=== PATIENT | female | born 1990 | race Caucasian/White ===

== ENCOUNTER 2023-04-06 08:09 | Outpatient (OUT) | payer MEDICAID, SELFPAY ==
--- NOTE | 2023-04-06 08:13 | US_ITS ---
The [address] [address] Patient Name: ERKIA GRIER MRN: [id number] date: 1990 Sex: F Assigned Patient Location: US Current Patient Location: US Accession/Order Number: [id number] Exam Date: 04/06/2023 08:15 Report Date: 04/06/2023 15:20 At the request of: ANN MORENO Procedure: US OB transvaginal EXAMINATION: US OB transvaginal HISTORY: MISSED PERIOD COMPARISON: No relevant comparison available. FINDINGS: GESTATIONAL SAC: Present and normal appearing. YOLK SAC: Present and normal appearing. POLE: Present and normal appearing. CARDIAC: Present. UTERUS: Small subchorionic hematoma. OVARIES: Right: Normal. Left: Normal. CERVIX: 5.7 cm in length and closed. CUL-DE-SAC: Normal. OTHER: None. AGE BY LMP: 10 weeks 3 days OMARI BY LMP: 10/30/2023 AGE BY US CRL: 10 weeks 2 days OMARI BY US CRL: 10/31/2023 IMPRESSION: 1. Single live intrauterine . Electronically authenticated by: MANDO DIEZ Date: 04/06/2023 15:20
== END 2023-04-06 08:10 ==
LOC: US 08:09
PROVIDERS: Visit Provider Obstetrics & Gynecology
DX: Z34.91 Encounter for supervision of normal pregnancy, unspecified, first trimester (principal)
CPT/HCPCS: 76817

== ENCOUNTER 2023-04-11 19:51 | Emergency (ER) | payer MEDICAID, SELFPAY ==
[2023-04-11 19:55] VITALS: BP 101/62; PULSE 90; RESP 16; TEMP 36.7; O2SAT 99; BMI 21.1
--- NOTE | 2023-04-11 20:12 | ED.GENADUL1 ---
HPI - General Adult General Chief complaint: Dental/Oral Stated complaint: SORE THROAT Time Seen by Provider: 04/11/23 20:12 Mode of arrival: walk-in History of Present Illness HPI narrative: presents complaining of sore throat for 3 days. States abrupt onset. No fever. 11 weeks . No fever. Describes mild congestion. No nausea or vomiting. Onset (ago): day(s) Related Data Allergies Allergy/AdvReac Type Severity Reaction Status Date / Time No Known Drug Allergies Allergy Verified 04/11/23 20:05 Review of Systems ROS Status of ROS 10 or more systems reviewed and unremarkable except as noted in history and below [facility] Social History Smoking status: Never smoker Exam Constitutional Vital Signs - 24 hr 04/11/23 19:55 Temperature 98.1 F Pulse Rate [Monitor] 90 Respiratory Rate 16 Blood Pressure [Left Arm] 101/62 Pulse Oximetry 99 Common normals: no apparent distress, average body habitus, oriented x3, no limitations and healthy appearing HENMA Common normals: normocephalic, head/scalp atraumatic, hearing grossly normal bilaterally and external ears normal Other: oral pharynx appears normal Eye Common normals: PERRL, EOMs intact bilaterally and conjunctivae normal Respiratory Common normals: normal respiratory effort, no retractions, no use of accessory muscles and clear to auscultation bilaterally Cardio Common normals: no JVD, regular rate, regular rhythm, S1 normal heart sound and S2 normal heart sound GI Common normals: Normal to inspection, nondistended, normoactive bowel sounds present, soft to palpation and non-tender Extremity Common normals: normal to inspection, full ROM, normal capillary refill and no joint enlargement Neuro Common normals: oriented x3, CN's II-XII intact bilaterally, moves all extremities, no focal motor deficits and no sensory deficits noted Psych Appearance: grossly normal Course Vital Signs Vital signs: Vital Signs Temperature 98.1 F 04/11/23 19:55 Pulse Rate 90 04/11/23 19:55 Respiratory Rate 16 04/11/23 19:55 Blood Pressure 101/62 04/11/23 19:55 Pulse Oximetry 99 04/11/23 19:55 Temperature 98.1 F 04/11/23 19:55 Pulse Rate 90 04/11/23 19:55 Respiratory Rate 16 04/11/23 19:55 Blood Pressure 101/62 04/11/23 19:55 Pulse Oximetry 99 04/11/23 19:55 Medical Decision Making Medical Records Medical records narrative: presents with 3 day history of sore throat. no fever. No lymph nodes. Oral pharynx clear. Strep screen neg. Patient advised of the working diagnosis of viral pharyngitis. Discharged home to follow up with her doctor for recheck Lab Data Labs: Lab Results 04/11/23 Range/Units 20:03 Streptococcus Screen Negative Discharge Plan Discharge Chief Complaint: Dental/Oral Clinical Impression: Acute viral pharyngitis Patient Disposition: Home, Self-Care Instructions: Pharyngitis (ED) Stand Alone Forms: Portal Instructions Referrals: Physician,Non-Staff, MD [Primary Care Provider] - 1 week Follow Up Appointments: follow up with your family doctor next week
[2023-04-11 20:18] LABS: Internal Control Within Normal Limits; Strep A Antigen Screen Negative
== END 2023-04-11 20:49 | disposition home or self-care (01) ==
PROVIDERS: Emergency Provider Internal Medicine
DX: O99.511 Diseases of the respiratory system complicating pregnancy, first trimester (principal); J02.9 Acute pharyngitis, unspecified; Z3A.11 11 weeks gestation of pregnancy
CPT/HCPCS: 87070; 87880; 99283

== ENCOUNTER 2023-05-04 21:01 | Outpatient (REF) | payer MEDICAID, SELFPAY ==
[2023-05-07 22:06] LABS: Age Gdln ACOG Testing Note (.); HPV Aptima Negative (Negative); IGP, Aptima HPV, rfx 16/18,45 Note (.)
== END 2023-05-04 21:02 | disposition home or self-care (01) ==
LOC: LAB 21:01
PROVIDERS: Visit Provider Obstetrics & Gynecology
DX: Z12.4 Encounter for screening for malignant neoplasm of cervix (principal); Z11.51 Encounter for screening for human papillomavirus (HPV)
CPT/HCPCS: 87624; G0145

== ENCOUNTER 2023-05-13 08:56 | Outpatient (OUT) | payer MEDICAID, SELFPAY ==
[2023-05-13 09:22] LABS: Basophils Percent Auto 0.3 % (0.2-2.0); Eosinophils Absolute Auto 0.1 10^3/uL (0.0-0.7); Eosinophils Percent Auto 1.2 % (0.9-7.0); Hematocrit 40.7 % (36.0-48.0); Hemoglobin 13.8 g/dL (12.0-16.0); Immature Granulocytes Abs Auto 0.03 10^3/uL (0.00-0.03); Immature Granulocytes Pct Auto 0.4 % (0.0-0.5); Lymphocytes Absolute Auto 1.4 10^3/uL (1.2-3.8); Lymphocytes Percent Auto 20.4 % (20.5-60.0); Mean Corpuscular HGB Conc 33.9 g/dL (29.9-35.2); Mean Corpuscular Hemoglobin 30.1 pg (26.7-34.0); Mean Corpuscular Volume 88.7 fL (81.0-99.0); Mean Platelet Volume 10.2 fL (9.5-13.5); Monocytes Absolute Auto 0.5 10^3/uL (0.3-0.8); Monocytes Percent Auto 7.2 % (1.7-12.0); Neutrophils Absolute Auto 4.8 10^3/uL (1.4-6.5); Neutrophils Percent Auto 70.5 % (43.0-75.0); Platelet Count 253 10^3/uL (150-450); Red Blood Count 4.59 10^6/uL (4.20-5.40); Red Cell Distribution Width 13.5 % (11.0-15.0); White Blood Count 6.8 10^3/uL (4.0-11.0)
[2023-05-13 10:21] LABS: Thyroid Stimulating Hormone 4.039 uIU/mL (0.358-3.740)
[2023-05-13 11:35] LABS: Estimated Average Glucose 91 mg/dL; Glycohemoglobin A1C 4.8 % (4.5-6.2)
[2023-05-14 06:09] LABS: HBsAg Screen Negative (Negative); HCV Ab Non Reactive (Non Reactive); HIV Ab/p24 Ag Screen Non Reactive (Non Reactive); Rubella Antibodies, IgG <0.90 index (Immune >0.99)
[2023-05-14 11:09] LABS: Rapid Plasma Reagin, Quant Non Reactive (NonRea<1:1)
== END 2023-05-13 08:57 | disposition home or self-care (01) ==
LOC: LAB 08:57
PROVIDERS: Visit Provider Obstetrics & Gynecology
DX: N92.6 Irregular menstruation, unspecified (principal)
CPT/HCPCS: 36415; 83036; 84443; 85025; 86592; 86706; 86762; 86803; 86850; 86900; 86901; 87086; 87389

== ENCOUNTER 2023-06-17 08:09 | Outpatient (OUT) | payer MEDICAID, SELFPAY ==
--- NOTE | 2023-06-17 | US_ITS ---
[address] [address] Patient Name: ERIKA GRIER MRN: [id number] date: 1990 Sex: F Assigned Patient Location: US Current Patient Location: Accession/Order Number: [id number] Exam Date: 06/17/2023 08:11 Report Date: 06/17/2023 15:17 At the request of: ARTHUR GALLARDO Procedure: US OB anatomy EXAMINATION: US OB anatomy HISTORY: ANATOMY COMPARISON: No relevant comparison available. TECHNIQUE: Transabdominal sonographic examination was performed for obstetrical and evaluation. FINDINGS: Number: 1 Heart Rate: 158.0 bpm H.B. /min Amniotic Fluid Volume: Subjectively normal Placental Location: POSTERIOR with lower margin adjacent the internal os. Cervix Length: 5.7 cm, closed. ANATOMY: Normal Structures -cerebellum, choroid plexus, cisterna magna, lateral cerebral ventricles, orbits, midline falx, hard palate, four-chamber heart, RVOT, LVOT, stomach, kidneys, bladder, umbilical cord insertion into abdomen, three-vessel cord, cervical spine, thoracic spine, lumbar spine, sacral spine, right upper extremity, left upper extremity, right lower extremity, left lower extremity. SUBOPTIMALLY SEEN: None ABNORMALITIES: None BIOMETRY: BPD: 4.4 cm 19 weeks 1 days ; 4% HC: 17.2 cm 19 weeks 5 days; 9% AC: 15.4 cm 20 weeks 4 days; 40% FL: 3.3 cm 20 weeks 3 days; 33% EFW:352.2 grams; 29% FL/AC: 21.7 FL/BPD: 76.8 HC/AC: 1.1 GESTATIONAL AGE: Age by EDC: 20 weeks 5 days OMARI by EDC: 10/30/2023 Age by current US: 20 weeks 0 days OMARI by current US: 11/04/2023 US/US OB anatomy IMPRESSION: 1. Single live intrauterine with growth detailed above. 2. Biparietal diameter is at 4th percentile. Electronically authenticated by: MANDO DIEZ Date: 06/17/2023 15:17
--- NOTE | 2023-06-17 | US_ITS ---
[address] [address] Patient Name: ERIKA GRIER MRN: [id number] date: 1990 Sex: F Assigned Patient Location: US Current Patient Location: Accession/Order Number: [id number] Exam Date: 06/17/2023 08:11 Report Date: 06/17/2023 15:17 At the request of: ARTHUR GALLARDO Procedure: US OB transvaginal EXAMINATION: US OB anatomy HISTORY: ANATOMY COMPARISON: No relevant comparison available. TECHNIQUE: Transabdominal sonographic examination was performed for obstetrical and evaluation. FINDINGS: Number: 1 Heart Rate: 158.0 bpm H.B. /min Amniotic Fluid Volume: Subjectively normal Placental Location: POSTERIOR with lower margin adjacent the internal os. Cervix Length: 5.7 cm, closed. ANATOMY: Normal Structures -cerebellum, choroid plexus, cisterna magna, lateral cerebral ventricles, orbits, midline falx, hard palate, four-chamber heart, RVOT, LVOT, stomach, kidneys, bladder, umbilical cord insertion into abdomen, three-vessel cord, cervical spine, thoracic spine, lumbar spine, sacral spine, right upper extremity, left upper extremity, right lower extremity, left lower extremity. SUBOPTIMALLY SEEN: None ABNORMALITIES: None BIOMETRY: BPD: 4.4 cm 19 weeks 1 days ; 4% HC: 17.2 cm 19 weeks 5 days; 9% AC: 15.4 cm 20 weeks 4 days; 40% FL: 3.3 cm 20 weeks 3 days; 33% EFW:352.2 grams; 29% FL/AC: 21.7 FL/BPD: 76.8 HC/AC: 1.1 GESTATIONAL AGE: Age by EDC: 20 weeks 5 days OMARI by EDC: 10/30/2023 Age by current US: 20 weeks 0 days OMARI by current US: 11/04/2023 US/US OB transvaginal IMPRESSION: 1. Single live intrauterine with growth detailed above. 2. Biparietal diameter is at 4th percentile. Electronically authenticated by: MANDO DIEZ Date: 06/17/2023 15:17
== END 2023-06-17 08:10 | disposition home or self-care (01) ==
LOC: US 08:09
PROVIDERS: Visit Provider Physician Assistant
DX: Z34.92 Encounter for supervision of normal pregnancy, unspecified, second trimester (principal)
CPT/HCPCS: 76805; 76817

== ENCOUNTER 2023-07-17 07:55 | Outpatient (OUT) | payer MEDICAID, SELFPAY ==
--- NOTE | 2023-07-17 08:07 | US_ITS ---
[place] [id number] Patient Name: ERIKA GRIER MRN: [id number] date: 1990 Sex: F Assigned Patient Location: LAB Current Patient Location: Accession/Order Number: [id number] Exam Date: 07/17/2023 08:09 Report Date: 07/18/2023 02:06 At the request of: ANN MORENO Procedure: US OB placenta EXAMINATION: US OB transvaginal, US OB placenta HISTORY: Low lying placenta, placenta previa COMPARISON: No relevant comparison available. FINDINGS: PLACENTA: Posterior with lower margin 3.4 cm from os. Suspect small machado at inferior aspect of placenta. CERVIX LENGTH: 4.1 cm, closed. HEART RATE: 146 OTHER: None. GA: 25 weeks 0 days OMARI: 10/30/2023 US/US OB placenta IMPRESSION: 1. Single live intrauterine . 2. Posterior placenta which is no longer low-lying. Electronically authenticated by: MANDO DIEZ Date: 07/18/2023 02:06
--- NOTE | 2023-07-17 08:07 | US_ITS ---
The [place] [id number] Patient Name: ERIKA GRIER MRN: [id number] date: 1990 Sex: F Assigned Patient Location: LAB Current Patient Location: Accession/Order Number: [id number] Exam Date: 07/17/2023 08:09 Report Date: 07/18/2023 02:06 At the request of: ANN MORENO Procedure: US OB transvaginal EXAMINATION: US OB transvaginal, US OB placenta HISTORY: Low lying placenta, placenta previa COMPARISON: No relevant comparison available. FINDINGS: PLACENTA: Posterior with lower margin 3.4 cm from os. Suspect small machado at inferior aspect of placenta. CERVIX LENGTH: 4.1 cm, closed. HEART RATE: 146 OTHER: None. GA: 25 weeks 0 days OMARI: 10/30/2023 US/US OB transvaginal IMPRESSION: 1. Single live intrauterine . 2. Posterior placenta which is no longer low-lying. Electronically authenticated by: MANDO DIEZ Date: 07/18/2023 02:06
[2023-07-17 09:28] LABS: Glucose 1 Hour 65 mg/dL
[2023-07-17 09:43] LABS: Basophils Percent Auto 0.4 % (0.2-2.0); Eosinophils Absolute Auto 0.1 10^3/uL (0.0-0.7); Eosinophils Percent Auto 0.7 % (0.9-7.0); Hemoglobin 12.8 g/dL (12.0-16.0); Immature Granulocytes Abs Auto 0.05 10^3/uL (0.00-0.03); Immature Granulocytes Pct Auto 0.6 % (0.0-0.5); Lymphocytes Absolute Auto 1.6 10^3/uL (1.2-3.8); Lymphocytes Percent Auto 19.1 % (20.5-60.0); Mean Corpuscular HGB Conc 33.7 g/dL (29.9-35.2); Mean Corpuscular Hemoglobin 31.1 pg (26.7-34.0); Mean Corpuscular Volume 92.5 fL (81.0-99.0); Mean Platelet Volume 10.1 fL (9.5-13.5); Monocytes Absolute Auto 0.7 10^3/uL (0.3-0.8); Monocytes Percent Auto 8.7 % (1.7-12.0); Neutrophils Absolute Auto 5.9 10^3/uL (1.4-6.5); Neutrophils Percent Auto 70.5 % (43.0-75.0); Platelet Count 244 10^3/uL (150-450); Red Blood Count 4.11 10^6/uL (4.20-5.40); Red Cell Distribution Width 13.4 % (11.0-15.0); White Blood Count 8.4 10^3/uL (4.0-11.0)
== END 2023-07-17 07:56 | disposition home or self-care (01) ==
LOC: LAB 07:55
PROVIDERS: Visit Provider Obstetrics & Gynecology
DX: O44.42 Low lying placenta NOS or without hemorrhage, second trimester (principal); Z3A.25 25 weeks gestation of pregnancy
CPT/HCPCS: 36415; 76815; 76817; 82950; 85025

== ENCOUNTER 2023-08-27 07:43 | Outpatient (RCR) | payer MEDICAID, SELFPAY ==
[2023-08-27 08:05] VITALS: BP 96/63; PULSE 81; RESP 16; TEMP 36.2; O2SAT 99
[2023-08-27] MEDS: RHO(D) IMMUNE GLOBULIN 1,500 UNIT SYRINGE 1500 UNIT IM (08:15)
--- NOTE | 2023-08-27 08:37 | PC.NURSE ---
0805: Pt. to [facility] amb. for ordered injection of Rhogam. Denies questions about med. Relays having 4 other injections of Rhogam in the past without adverse reactions. 0815: Pt. medicated with Rhophylac, 1500 units, IM to left DG. Bleeding to site. Bandaid applied. Pt. tolerated with minimal c/o discomfort. 0817: Pt. without c/o. Requests to leave for another appointment. Instructed pt. to call if any concerns or symptoms of adverse reaction. Pt. relays understanding. Pt. d/c'd amb. to home.
[2023-08-27 09:53] VITALS: BP 128/66; PULSE 100; RESP 18; TEMP 36.4; O2SAT 95
--- NOTE | 2023-08-27 09:56 | PC.NURSE ---
0934: Pt. to [facility] amb. for daily infusion. VSS. #22 gauge IV initiated to left forearm on first attempt without difficulty. Flushes easily with no edema or redness. Pt. tolerated without c/o. IV Solumedrol 1gram iv initiated at this time. Pt. denies needs.
== END 2023-09-23 23:59 | disposition home or self-care (01) ==
LOC: INF 07:43
PROVIDERS: Visit Provider Obstetrics & Gynecology
DX: O26.893 Other specified pregnancy related conditions, third trimester (principal); Z67.91 Unspecified blood type, Rh negative
CPT/HCPCS: 36415; 86850; 86900; 86901; 96372; J2790

== ENCOUNTER 2023-09-20 07:12 | Outpatient (OUT) | payer MEDICAID, SELFPAY ==
--- NOTE | 2023-09-20 11:01 | US_ITS ---
[address] [address] Patient Name: ERIKA GRIER MRN: [id number] date: 1990 Sex: F Assigned Patient Location: [facility] Current Patient Location: Accession/Order Number: [id number] Exam Date: 09/20/2023 11:06 Report Date: 09/20/2023 15:38 At the request of: ANN MORENO Procedure: US OB BPP w non-stress EXAMINATION: US OB BPP w non-stress HISTORY: THIRD TRIMESTER Z34.93 COMPARISON: Ultrasound OB anatomy 06/17/2023 TECHNIQUE: Ultrasound biophysical profile was performed in the radiology department. BREATHING MOVEMENTS: 2.0 GROSS BODY MOVEMENTS: 2.0 TONE: 2.0 QUALITATIVE AMNIOTIC FLUID VOLUME: 2.0 PRESENTATION: CEPHALIC HEART RATE: 151.7 bpm bpm. AMNIOTIC FLUID VOLUME: 16.3 cm GESTATIONAL AGE: 34 weeks 2 days CONCLUSION: Total biophysical profile score 8.0. Electronically authenticated by: MANDO DIEZ Date: 09/20/2023 15:38
[2023-09-20 11:35] VITALS: BP 95/59; PULSE 77
== END 2023-09-20 12:10 | disposition home or self-care (01) ==
LOC: US 07:15 → FBC 10:59
PROVIDERS: Visit Provider Obstetrics & Gynecology
DX: Z34.93 Encounter for supervision of normal pregnancy, unspecified, third trimester (principal); Z3A.34 34 weeks gestation of pregnancy
CPT/HCPCS: 76818

== ENCOUNTER 2023-09-23 10:26 | Outpatient (OUT) | payer MEDICAID, SELFPAY ==
[2023-09-23 10:50] VITALS: BP 109/67; PULSE 83
--- OUTSIDE RECORDS SUMMARY | 2023-10-13 00:50 | XMS_ITS | CCD ---
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 Name Role Phone DO GIGI BARAHONA Attending DO DEE Gay Primary Care DO DEE Gale Consulting DO GIGI Ocasio Attending Alejandro Palomares, DO DEE POND Primary Care Unava [place] Unavailable ANN MORENO Attending Unavailable ARTHUR GALLARDO Attending Unavailable Medications Current Medications Medication Drug Class(es) Dates Sig (Normalized) Sig (Original) amoxicillin 875 mg oral tablet (1 source) Penicillin-class Antibacterial Start: 10-10-2022 take 1 tablet by mouth every twelve hours Amoxicillin 875 MG 1 tablet Orally every 12 hrs for 10 day(s) Sep, Active lidocaine hydrochloride 20 mg/ml mucous membrane topical solution (1 source) Antiarrhythmic, Amide Local Anesthetic Start: 10-10-2022 take 10 mL by mouth every three hours Lidocaine Viscous 2% 10 ml swish in mouth, gargle, and spit. 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 Purpose of smear: Regular periodic exam/screening Pap GY Specimen A Liquid Prep Pap Smear, with HPV Adequacy Alpha Response SAT ANATOMICPATHOLOGY Endocervical Alpha Response EC/TZONE - ANATOMICPATHOLOGY Statement of Adequacy Satisfactory for Evaluation. Transformation Zone Absent. Diagnosis Alpha Response GY NILM/MOD INFL ANATOMICPATHOLOGY Diagnosis NEGATIVE FOR INTRAEPITHELIAL LESION OR MALIGNANCY Moderate amounts of inflammation are present. Completed by: KASSANDRA Benitez (ASCP) (Electronically signed by) 12/05/21 13:56 EST GY Disclaimer Interp The PAP smear is a screening test with an inherent, but low, probability of error. A negative report indicates a low probability of significant cervical pathology. Your patient should be reminded to consult you immediately if she experiences new symptoms and to continue having regular PAP smears in the future. GY Disclaimer Alpha Web Portal Developer Disclaimer ANATOMICPATHOLOGY Normal [facility] Comment on above: Performed By: #### G YNCYTREP #### [facility] (DEFAULT) [address] [place] [address] HPV DNAon 12-05-2021 HPV DNA Scrn Negative Normal Negative [facility] Comment on above: Result Comment: The APTIMA HPV Assay is an in-vitro nucleic acid amplification test for the qualitative detection of HPV in cervical specimens. The APTIMA HPV Assay should be interpreted in conjunction with other laboratory and clinical data available to the clinician. The APTIMA HPV Assay detects E6/E7 viral messenger RNA (mRNA) of the high-risk HPV types 16, 18, 31, 33, 35, 39, 45, 51, 52, 56, 58, 59, 66, and 68. Detection of high-risk HPV mRNA is dependent on the number of copies present in the specimen and may be affected by specimen collection methods, patient factors, stage of infection, and the presence of interfering substances. 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 WT. @ 6wk PPV 05/26/21 =69.3 kg. History of Present Illness Denies breast changes Denies family history of male breast cancer, early-onset female breast cancer Denies family history of ulcerative colitis, Crohn's disease, early colon cancer Contraception Type: None Para: 4 Pelvic Pain: No Painful Sex: No Abnormal Vaginal Discharge: No Abnormal Vaginal Bleeding: No Vaginal Dryness: No Vaginal Itch: No Vaginal Burning: No Vaginal Odor: No Hot Flashes: No Night Sweats: No Breast Lump: No Breast Pain: No Contraception Type: None Menstrual Periods: No Sexually Active: Yes Patient is known of her vitiligo diagnosis for several years She denies recent significant changes to her vulva/introitus She denies dyspareunia Review of Systems Head Migraines: No Headaches: No Eyes Corrective Lenses: None Blurred vision: None Ears, Nose, Throat Congestion: No Vertigo: No Sore throat: No Nasal drainage: No Cardio Respiratory Peripheral edema: No Heart Irregularity: No Chest Pain: No Shortness of Breath: No Gastrointestinal Bloating: No Reflux/heartburn: No Abdominal Pain: No Change in bowel habits: No Urinary Urinary Incontinence: No Urinary frequency: No Nocturia: No Urgency: No Painful urination: No Musculoskeletal Backpain: No Muscle aches: No Joint pain: No Integumentary Lesions: No Moles: No Acne: No Hair changes: No PsychoSocial Sleep Problems: No Anxiety: No Suicidal Ideation: No Homicidal Ideation: No Depression: No Hematologic/Lymphatic Lymphadenopathy: No Thromboembolism: No Bruising: No Bleeding tendencies: No Endocrine Abnormal weight gain: No Abnormal weight loss: No Fatigue: No Additional Details Pain Present Physical Exam Vitals & Measurements T: 36.4 ?C (Tympanic) BP: 120/78 HT: 171 cm WT: 63.5 kg WT: 63.5 kg (Dosing) BMI: 21.72 Assist: a hurst General: Alert, in no acute distress. Neurological: Orientation appropriate. Psychiatric: Mood and affect appropriate. HEENT: Normocephalic, extraocular muscles intact. Oropharynx: Without erythema. No ulcerations of lips, gingiva, mucosal surfaces. Neck: No thyromegaly noted. Lungs: Clear to auscultation bilaterally. Heart: Normal rate, rhythm, without murmurs. Abdomen: Soft, non-tender, without rebound. No hernia noted. Nonpalpable liver, spleen. Breasts: Negative for masses, nipple discharge. Anus/Perineum: Negative for lesions. Urethra: Negative for lesions. Vulva: Negative lesions; without erythema. Vulva: No erythema. White, atrophic (without papules) macular epithelium, most prominent at posterior fourchette, vulva bilaterally; also halo around anus. Introitus has a yellow, waxy appearance. Small distortion noted with some fusion of labia majora/minora. Vagina: No abnormal color, discharge. Cervix: No lesions, contact bleeding. Uterus: Mobile, nontender. Adnexa: Nontender. Lymphatic: No axillary, inguinal lymphadenopathy noted. Skin: Warm, dry without lesions. Additional Vitals BP Position/Location: Sitting, Right arm Assessment/Plan 1. Encounter for routine gynecological examination with Papanicolaou smear of cervix A: annual: pap with HPV B: breast health: mammogram (every other year in 40s) C: colon ca screening: colonoscopy at 50 due to no family history of IBD D: contraception: NFP E: social: [place] son (Maryann); 3 older sisters; close friend of Oanh Khan; her is a chiropractor, she has significant background in photography, visual arts 2. Intermittent constipation Ordered: Thyroid Stimulating Hormone 3. Vitiligo refer to Derm Uncertain vulvar changes are secondary to vulvar vitiligo versus lichen sclerosus; patient advised that management and prognosis are very different Ordered: Referral to Dermatology Medical Decision Making Chronic conditions NOT treated during this visit that affected my overall medical decision making: [] Treatment plans discussed but not opted for at this time: [] Prescribed medication that requires intensive monitoring for toxicity: [] I have reviewed the patient?s medication list for medication interactions/contraindications and/or for upcoming procedures: [yes or no] Time Spent with the Patient I have personally spent [] minutes on this date, directly related to today's patient visit, including pre and post visit work, for this date of service. Time listed does not include time spent on separately billable services. Problem List/Past Medical History Ongoing Alopecia Positive test Rh negative status during Historical Procedure/Surgical History None Medications ferrous sulfate 325 mg (65 mg elemental iron) oral delayed release tablet, 325 mg= 1 tabs, Oral, Daily, 1 refills, Not taking ibuprofen 800 mg oral tablet, 800 mg= 1 tabs, Oral, q6 (more content not included)... Normal [facility] TSHon 12-03-2021 TSH Qn 2.36 m[IU]/L Normal 0.45-5.33 [facility] Comment on above: Result Comment: Refe rence Ranges for individuals from to 18 years of age were obtained from The Nichelle Salcedo Handbook (20 ed) published by [facility]. Reference Ranges for Females: Females, 1st Trimester 0.05 ? 3.7 uIU/mL Females, 2nd Trimester 0.31 ? 4.35 uIU/mL Females, 3rd Trimester 0.41 ? 5.18 uIU/mL Performed By: #### C [id number] #### [facility] [address] [place] [address] Gynecology Office/Clinic Not edith 05-26-2021 Gynecology Office/Clinic Note Chief Complaint Follow Up 6 wk PPV, 04/12/21 History of Present Illness UTI symptoms: Improved Contraception Type: None Pelvic Pain: No Painful Sex: No Abnormal Vaginal Discharge: No Abnormal Vaginal Bleeding: No Vaginal Dryness: No Vaginal Itch: No Vaginal Burning: No Vaginal Odor: No Hot Flashes: No Breast Lump: No Breast Pain: No Contraception Type: None Menstrual Periods: No Reason for No Menstrual Periods: Sexually Active: Yes No qualifying data available. Review of Systems Head Migraines: No Headaches: No Eyes Corrective lenses: No Blurred vision: No Ears, Nose, Throat Congestion: No Vertigo: No Sore throat: No Nasal drainage: No Cardio Respiratory Peripheral edema: No Heart Irregularity: No Chest Pain: No Shortness of Breath: No Gastrointestinal Bloating: No Reflux/heartburn: No Abdominal Pain: No Change in bowel habits: No Urinary Urinary Incontinence: No Urinary frequency: No Nocturia: No Urgency: No Painful urination: No Additional Details Pain Present Pain present: No Physical Exam Vitals & Measurements T: 36.6 ?C (Oral) BP: 114/60 WT: 69.3 kg WT: 69.3 kg (Dosing) Assist: adrian garsia General: Alert, in no acute distress. HEENT: Normocephalic, extraocular muscles intact. Anus/Perineum: Negative for lesions. Urethra: Negative for lesions. Vulva: Negative lesions; without erythema. Vagina: No abnormal color, discharge. Cervix: No lesions, contact bleeding. Uterus: Mobile, nontender. Adnexa: Nontender; no inguinal adenopathy noted. Skin: Warm, dry without lesions. Additional Vitals BP Position/Location: Sitting, Right arm Assessment/Plan 1. exam Vaginal laceration from : Healing well Contraception: NFP Social: son (Maryann); 3 older sisters; close friend of Oanh Khan; her is a chiropractor, she has significant background in photography, visual arts Orders: multivitamin, , 1 packets, Oral, Daily, # 30 packets, 11 Refill(s), Pharmacy: [id number] Medical Decision Making Chronic conditions NOT treated during this visit that affected my overall medical decision making: [] Treatment plans discussed but not opted for at this time: [] Prescribed medication that requires intensive monitoring for toxicity: [] I have reviewed the patient?s medication list for medication interactions/contraindications and/or for upcoming procedures: [yes or no] Time Spent with the Patient I have personally spent [] minutes on this date, directly related to today's patient visit, including pre and post visit work, for this date of service. Time listed does not include time spent on separately billable services. 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 Highest education level: University degree(s). Exercise Exercise duration: 20. Exercise frequency: Daily. Exercise type: pilates & body weight, jump rope. Home/Environment Lives with Children, Spouse. Living situation: Home/Independent. 1 dog, 1 cat, Goats & chickens (cat & dog are outside), Alcohol abuse in household: No. Substance abuse in household: No. Smoker in household: No. Nutrition/Health Type of diet: balanced. Regular, Wants to lose weight: No. Nutrition counseling Sexual Sexually active: Yes. Substance Abuse Denies All Tobacco Never (less than 100 in lifetime) Use:. Family History Alzheimer's disease: Grandfather (P). Immunizations Vaccine Date Status measles/mumps/rubella virus vaccine - Not Given Comments : Patient Refuses Diagnostic Results No qualifying data available (XRay) No qualifying data available (CT) No qualifying data available (Ultrasound) No qualifying data available (MRI) Electronically signed by Gigi Barahona DO 05/26/21 09:03 EDT Normal [facility] Gynecology Office/Clinic Not edith 04-23-2021 Gynecology Office/Clinic Note Chief Complaint Follow Up 11 days PPV, on 04/12/21 History of Present Illness Boy: Bart weight:3360 grams Breast-feeding: Yes; without redness, incomplete Bleeding: Light Bowel movements regular: Yes Taking stool softener: Yes Regular voiding: Yes control: Declines Pain medication: Yes Type of pain medication: Ibuprofen Incision: N/A Baby blues: No Suicidal ideation: No Homicidal ideation: No EPDS: per record Contraception Type: None Pelvic Pain: No Painful Sex: No Abnormal Vaginal Discharge: No Abnormal Vaginal Bleeding: No Vaginal Dryness: No Vaginal Itch: No Vaginal Burning: No Vaginal Odor: No Hot Flashes: No Breast Lump: No Breast Pain: No Contraception Type: None No qualifying data available. Review of Systems Cardio Respiratory Peripheral edema: No Heart Irregularity: No Chest Pain: No Shortness of Breath: No Gastrointestinal Bloating: No Reflux/heartburn: No Abdominal Pain: No Change in bowel habits: No Urinary Urinary Incontinence: No Urinary frequency: No Nocturia: No Urgency: No Painful urination: No Additional Details Pain Present Physical Exam Vitals & Measurements T: 36.3 ?C (Tympanic) BP: 110/68 HT: 170 cm WT: 71.6 kg WT: 71.6 kg (Dosing) BMI: 24.78 General: Alert, in no acute distress. Neurological: Orientation appropriate. Psychiatric: Mood and affect appropriate. HEENT: Normocephalic, extraocular muscles intact. Eyes: White conjunctiva, symmetric eye lids. Skin: Inspection reveals no lesions, ulcers. Additional Vitals BP Position/Location: Sitting, Left arm Assessment/Plan 1. exam No evidence of depression, mastitis, infection Laceration: We will assess in 6 weeks Contraception: NFP Medical Decision Making Chronic conditions NOT treated during this visit that affected my overall medical decision making: [] Treatment plans discussed but not opted for at this time: [] Prescribed medication that requires intensive monitoring for toxicity: [] I have reviewed the patient?s medication list for medication interactions/contraindications and/or for upcoming procedures: [yes or no] Time Spent with the Patient I have personally spent [] minutes on this date, directly related to today's patient visit, including pre and post visit work, for this date of service. Time listed does not include time spent on separately billable services. 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 Highest education level: University degree(s). Exercise Exercise duration: 20. Exercise frequency: Daily. Exercise type: pilates & body weight, jump rope. Home/Environment Lives with Children, Spouse. Living situation: Home/Independent. 1 dog, 1 cat, Goats & chickens (cat & dog are outside), Alcohol abuse in household: No. Substance abuse in household: No. Smoker in household: No. Nutrition/Health Type of diet: balanced. Regular, Wants to lose weight: No. Nutrition counseling Sexual Sexually active: Yes. Substance Abuse Denies All Tobacco Never (less than 100 in lifetime) Use:. Family History Alzheimer's disease: Grandfather (P). Immunizations Vaccine Date Status measles/mumps/rubella virus vaccine - Not Given Comments : Patient Refuses Diagnostic Results No qualifying data available (XRay) No qualifying data available (CT) No qualifying data available (Ultrasound) No qualifying data available (MRI) Electronically signed by Brant ARGUELLO Gigi Samm 04/23/21 08:21 EDT Normal [facility] Inpatient Clinical Summaryon 04-14-2021 Inpatient [place] [address] [address] Clinical Summary Person Information Name: Erika Barnes Age: 31 Years : 1990 Sex: Female PCP: Dee Hayden DO Marital Status: Phone: PCP: [phone] Race: White Ethnicity: Not or Language: Swedish Visit Id: Visit Reason: IUP Speciality: Acuity: PP Vag Enc Type: Inpatient Med Service: Gynecology-Obstetrics Arrival: 04/11/2021 15:09:36 Discharge: Dispo Type: Address: [address] [place] [address] Diagnosis: 1:Single live ; 2:37 weeks gestation of ; Delivery of Discharged To: Home Treatments: Devices/Equipment: Professional Skilled Services: Special Services and Community Resources: Mode of Discharge Transportation: Discharge Orders Allergies No Known Allergies Functional Status: Sensory Deficits: History of Falls: Mobility Assistance Prior to Admission: ADLs: Independent Gait: Steady Ambulation Assist: Assistive Device: Special Orthopedic Devices: Current Level of Assistance for Self-Care/Mobility: Cognitive Status: Orientation: Orientation Assessment Oriented x 4 Level of Consciousness: Alert Characteristics of Speech: Clear Aspiration Risk: None Affect/Behavior: Appropriate, Calm, Cooperative Laboratory or Other Results This Visit (last charted value for your 04/11/2021 visit) Hematology 04/13/2021 6:34 AM WBC: 10.6 x10 RBC: 3.53 x10 Neutro Auto: 69.4 % -- Normal range between ( 47.2 and 70.8 ) Lymph Auto: 20.4 % -- Normal range between ( 27.2 and 40.8 ) [place] Auto: 9.1 % -- Normal range between ( 3.7 and 11.9 ) Eos Auto: 0.7 % -- Normal range between ( 0.0 and 5.4 ) Basophil Auto: 0.4 % -- Normal range between ( 0.0 and 1.5 ) Baso Absolute: 0.0 x10 MCV: 82.9 fL -- Normal range between ( 80.0 and 100.0 ) MCHC: 34.5 % -- Normal range between ( 31.0 and 37.0 ) Lymph Absolute: 2.2 x10 Hct: 29.3 % -- Normal range between ( 36.0 and 46.0 ) [place] Absolute: 1.0 x10 MCH: 28.6 pg -- Normal range between ( 27.0 and 35.0 ) Neutro Absolute: 7.4 x10 Hgb: 10.1 g/dL -- Normal range between ( 12.0 and 16.0 ) Mean Platelet Volume: 8.4 fL -- Normal range between ( 6.7 and 10.6 ) Platelet: 223 x10 Eos Absolute: 0.1 x10 RDW: 13.2 % -- Normal range between ( 11.6 and 14.8 ) Urinalysis 04/11/2021 6:41 PM UA Spec Grav: 1.015 -- Normal range between ( 1.003 and 1.035 ) UA pH: 7.0 Chemistry 04/11/2021 6:41 PM Ur Creatinine Tox Scrn: 90.3 mg/dL Toxicology 04/11/2021 6:41 PM Ur Methadone Scrn w/Conf: Negative ng/mL Ur Amph Scrn w/Conf: Negative ng/mL Ur Yoko Scrn w/Conf: Negative ng/mL Ur Benzodia Scrn w/Conf: Negative ng/mL Ur Cannab Scrn w/Conf: Negative ng/mL Ur Cocaine Scrn w/Conf: Negative ng/mL Ur Opiate Scrn w/Conf: Negative ng/mL Ur PCP Scrn w/Conf: Negative ng/mL Ur Buprenorphine Scrn w/Conf: Negative ng/mL Ur Oxy Screen w/Conf: Negative ng/mL Ur Fentanyl Scrn w/Confirm: Negative ng/mL Blood Bank 04/12/2021 11:26 AM ABO/Rh: A NEG Screen: Negative Antibody Screen: Positive Antibody ID: Anti-D; Rhg Measurements: Height: Weight: Blood Pressure: 100 mmHg / BMI: Respiratory: Respirations: Unlabored, Quiet Respiratory Symptoms: Cardiovascular: Heart Sounds: Heart Rhythm: Regular Gastrointestinal: GI Symptoms: Bowel Sounds: Present Vital Signs: Temp Axillary: Temp Temporal Artery: 35.9 degC Temp Oral: 36.6 degC Temp Rectal: Apical Heart Rate: Peripheral Pulse Rate: Heart Rate: 73 bpm Respiratory Rate: 16 br/min Diet Diet: Feeding Tolerance: Appetite: Good Gerardo Assessment: 23 Procedures No Procedures Documented Immunizations measles/mumps/rubella virus vaccine (Not Given) Medications that have not changed [address] [place], [place] [id number], [phone] ferrous sulfate (ferrous sulfate 325 mg (65 mg elemental iron) oral delayed release tablet) 1 Tabs Oral (given by mouth) every day. Refills: 1. Last Dose: ibuprofen (ibuprofen 800 mg oral tablet) 1 Tabs Oral (given by mouth) every 6 hours as needed as needed for pain. Refills: 0. Last Dose: Other Medications multivitamin, ( Multivitamins with Folic Acid 0.4 mg oral tablet) 1 Tabs Oral (given by mouth) every day. Refills: 3. Last Dose: Care Team Members: Attending Physician: Erika Yin DO Consulting Physician: Angel Simons MD Referring Physician: Follow up: With: Address: When: Gigi Barahona DO Within 1 to 2 weeks Comments: please call to make follow-up appointment within 1-2 weeks Type Location Start Finish State OB Visit - Established BV MARY Little 04/16/2021 12:15:00 04/16/2021 12:30:00 Confir (more content not included)... Normal [facility] CBC w/ Diffon 04-13-2021 Erythrocyte distribution wid th (RBC) [Ratio] 13.2 % Normal 11.6-14.8 [facility] Comment on above: Performed By: #### C BC ####[address] [address] Hematocrit (Bld) [Volume fraction] 29.3 % Low 36.0-46.0 [facility] Comment on above: Performed By: #### C BC ####[place] [id number] Hemoglobin (Bld) [Mass/Vol] 10.1 g/dL Low 12.0-16. 0 [facility] Comment on above: Performed By: #### C BC ####[place] [id number] MCH (RBC) [Entitic mass] 28.6 pg Normal 27.0-35.0 [facility] Comment on above: Performed By: #### C BC ####[place] [id number] MCHC 34.5 % Normal 31.0-37.0 [facility] Comment on above: Performed By: #### C BC ####[address] [address] MCV (RBC) [Entitic vol] 82.9 fL Normal 80.0-100.[address] [facility] Comment on above: Performed By: #### C BC ####[address] [address] Platelet 223 x10*3/mcL Normal 150-350 [facility] Comment on above: Performed By: #### C BC ####[address] [address] Platelet mean volume (Bld) [Entitic vol] 8.4 fL Normal 6.7-10.6 [facility] Comment on above: Performed By: #### C BC ####[address] [address] RBC 3.53 x10*6/mcL Low 3.80-5.20 [facility] Comment on above: Performed By: #### C BC ####[address] [address] WBC 10.6 x10*3/mcL Normal 4.5-11.0 [facility] Comment on above: Performed By: #### C BC ####[address] [address] Diff Autoon 04-13-2021 Baso Absolute 0.0 x10*3/mcL Normal 0.0-0.2 [facility] Comment on above: Performed By: #### C [id number] #### [address] [address] Basophils/100 WBC (Bld) 0.4 % Normal 0.0-1.[address] [facility] Comment on above: Performed By: #### C [id number] #### [address] [address] Eos Absolute 0.1 x10*3/mcL Normal 0.0-0.4 [facility] Comment on above: Performed By: #### C [id number] #### [address] [address] Eosinophils/100 WBC (Bld) 0.7 % Normal 0.0-5.4 [facility] Comment on above: Performed By: #### C [id number] #### [address] [address] Lymph Absolute 2.2 x10*3/mcL Normal 1.0-4.8 [facility] Comment on above: Performed By: #### C [id number] #### [address] [address] Lymphocytes/100 WBC (Bld) 20.4 % Low 27.2-40.8 [facility] Comment on above: Performed By: #### C [id number] #### [address] [address] [place] Absolute 1.0 x10*3/mcL Normal 0.1-1.1 [facility] Comment on above: Performed By: #### C [id number] #### [address] [address] Monocytes/100 WBC (Bld) 9.1 % Normal 3.7-11.9 [facility] Comment on above: Performed By: #### C [id number] #### [address] [address] Neutro Absolute 7.4 x10*3/mcL Normal 1.8-7.7 [facility] Comment on above: Performed By: #### C [id number] #### [address] [address] Neutro Auto 69.4 % Normal 47.2-70.8 [facility] Comment on above: Performed By: #### C [id number] #### [address] [address] Progress Note - Genericon Progress Note - Generic Patient: Erika Barnes 636 Age: 31 years Sex: Female : 1990 Associated Diagnoses: 37 weeks gestation of ; Delivery of Author: Kane WILLS, Mena Little Results Review Labor/ Delivery Summary Results Review Problems (Active Problems Only) (SNOMED CT: 689699951, Onset: 07/21/20) Blood group A Rh(D) negative (SNOMED CT: 761348410, Onset: --) test positive (SNOMED CT: 483156152, Onset: --) Alopecia (SNOMED CT: 84664863, Onset: --) Delivery Summary A Membrane Status Information ROM Date/Time: 04/12/21 00:12:00 ROM Type: Artificial rupture of membranes Amniotic Fluid Color/Description: Clear Labor Information 2nd Stage Onset Date/Time: 04/12/21 05:45:00 Labor Onset Methods: Spontaneous Precipitous Labor: No Prolonged Labor: No Monitoring FHR Monitoring Method: Doppler ultrasound Delivery Information Delivery Type: Vaginal Date/Time of : 04/12/21 06:40:00 Placenta Delivery Date/Time: 04/12/21 06:44:00 Placenta Delivery Method: Spontaneous Placenta to Pathology: No Cord Blood Banking: No Cord Blood Sent to Lab: Yes Representative Phlebotomy Services: Alexus Maynard Maternal Delivery Complications: None Delivery Physician: Angel Simons MD Attending Physician: Erika Yin DO Information Risk Factors: None Complications: None Nuchal Cord Times: 2 Nuchal Cord Tension: Loose Nuchal Cord Intervention: Reduced prior to delivery Umbilical Cord Description: 3 vessel cord Data Gender: Male ID Band Number: [id number] Outcome: Live Weight: 3.360 kg Score 1 Minute: 9 Score 5 Minute: 9 Score 10 Minute: 9 Information posterior Results review Labs (Last four charted values) WBC 10.6 (APR 13) H 11.3 (APR 11) Hgb L 10.1 (APR 13) L 11.7 (APR 11) Hct L 29.3 (APR 13) L 34.2 (APR 11) Plt 223 (APR 13) 282 (APR 11) Discharge Information Delivery date was 04/12/2021 vaginally. Breast feeding of the not is effective. May not resume sexual activity. The contraception plan consists of undecided. Coexisting conditions consist of none. Discharge Summary Information: Discharged 04/13/2021. Discharge diagnosis: 37 weeks gestation of ([id number], Discharge, Medical), Delivery of ([id number], Discharge, Medical). Histories History History (3,0,0,3) # 1 Baby 1 Outcome Date: 08/18/2014 Outcome: Live Outcome or Result: Vaginal, Vacuum Assist Gender: Female Gest Age: 40 weeks Wt: 3941 g Hospital: [facility] Labor: -- Child's Name: -- Baby's Father: -- Anesthesia Type: Epidural # 2 Baby 1 Outcome Date: 12/01/2016 Outcome: Live Outcome or Result: Vaginal Gender: Female Gest Age: 39 weeks Wt: 2948 g Hospital: [facility] Labor: -- Child's Name: Martha Baby's Father: -- Complications: None # 3 Baby 1 Outcome Date: 09/28/2018 Outcome: Live Outcome or Result: Vaginal Gender: Female Gest Age: 39 weeks 2 days Wt: 3410 g Hospital: -- [facility] Labor: -- Child's Name: -- Baby's Father: -- Complications: None Complications: None Hospital Course Hospital Course Admitted from: from home. Length of stay: days 2. Delivery: Type of delivery spontaneous. Discharge Plan Discharge Summary Plan Discharge Status: stable. Discharge disposition: discharge to home. Prescriptions: reviewed with patient, Start Ferrous Sulfate. Discharge instructions given: verbal discharge instructions. Course Progressing as expected. Follow-up Return to office. Electronically signed by Mena Mitchell 04/13/21 08:41 EDT Normal [facility] Progress Note - Generic Patient: Erika Barnes 636 Age: 31 years Sex: Female : 1990 Associated Diagnoses: None Author: Mena Mitchell Basic Information G 4 P 3, Boy, 7 # 3 oz, positive Rh negative, Needs MMR and doing well. Coping as expected Breast feeding, infant latching well no breast issues bowel and bladder normal Moderate vaginal bleeding Perineal pain Review of Systems Constitutional: Negative. Eye: Negative. Ear/Nose/Mouth/Throat: Negative. Respiratory: Negative. Cardiovascular: Negative. Breast: Negative. Gastrointestinal: Negative. Genitourinary: Negative. Hematology/Lymphatics: Negative. Gynecologic: Perineal pain. Endocrine/Renal: Negative. Immunologic: Negative. Musculoskeletal: Negative. Integumentary: Negative. Neurologic: Negative. Psychiatric: Negative. All other systems are negative Health Status Problem list: Problems (Active Problems Only) (SNOMED CT: 440357257, Onset: 07/21/20) Blood group A Rh(D) negative (SNOMED CT: 349191113, Onset: --) test positive (SNOMED CT: 485504034, Onset: --) Alopecia (SNOMED CT: 75954850, Onset: --) single live infant Physical Examination VS/Measurements Vital Signs (last 24 hrs) Last Charted Temp Oral 37 degC (APR 13 06:12) Resp Rate 16 br/min (APR 13 06:12) SBP 101 mmHg (APR 13 06:12) DBP 66 mmHg (APR 13 06:12) Review / Management Results review: Labs (Last four charted values) WBC 10.6 (APR 13) H 11.3 (APR 11) Hgb L 10.1 (APR 13) L 11.7 (APR 11) Hct L 29.3 (APR 13) L 34.2 (APR 11) Plt 223 (APR 13) 282 (APR 11) . Impression and Plan Condition: Stable. Plan Routine care. Course: Progressing as expected, Discharge today. Electronically signed by Mena Mitchell 04/13/21 08:36 EDT General: Alert and oriented x 3, well nourished, no acute distress, Psychiatric: Cooperative, appropriate mood and affect Uterus: U-1, Firm Skin: Dry and intact Electronically signed by Mena Mitchell 04/13/21 10:41 EDT Normal [facility] ABIDon 04-12-2021 ABID Positive Normal [facility] Comment on above: Performed By: #### C [id number] #### [facility] [address] [place] [address] ABO/Rhon 04-12-2021 ABO/Rh ABO/Rh: A NEG Normal [facility] Comment on above: Performed By: #### C [id number] #### [facility] [address] [place] [address] ABSC Autoon 04-12-2021 ABSC Auto Positive Normal [facility] Comment on above: Performed By: #### C D:[id number] #### [address] [address] Screenon 04-12-2021 Screen Screen: Negati ve FS Pos Ctl: Positive FS Neg Ctl: Negative Normal [facility] Comment on above: Performed By: #### C D:[id number] #### [address] [address] Obstetrics Progress Noteon 0 04-12-2021 Obstetrics Progress Note Patient: Erika Barnes 636 Age: 31 years Sex: Female : 1990 Associated Diagnoses: None Author: Ronak ABBASI, Angel Roa Basic Information Gestational Age: Gestational Age (EGA) and OMARI * Note: EGA calculated as of 04/13/2021 OMARI: 04/27/2021 EGA*: 37 weeks 6 days Type: Final Method Date: 07/21/2020 Method: Last Menstrual Period (07/21/2020) Confirmation: Confirmed Description: -- Comments: planned exact lmp known, normal cycles Entered by: Kristen Nolen on 09/20/2020 Other OMARI Calculations for this : No additional OMARI calculations have been recorded for this . Procedure Labor/ Delivery Summary Results Review: Problems (Active Problems Only) (SNOMED CT: 860207681, Onset: 07/21/20) Blood group A Rh(D) negative (SNOMED CT: 421312579, Onset: --) test positive (SNOMED CT: 646868136, Onset: --) Alopecia (SNOMED CT: 04982307, Onset: --) Delivery Summary A Membrane Status Information ROM Date/Time: 04/12/21 00:12:00 ROM Type: Artificial rupture of membranes Amniotic Fluid Color/Description: Clear Labor Information 2nd Stage Onset Date/Time: 04/12/21 05:45:00 Labor Onset Methods: Spontaneous Precipitous Labor: No Prolonged Labor: No Monitoring FHR Monitoring Method: Doppler ultrasound Delivery Information Delivery Type: Vaginal Date/Time of : 04/12/21 06:40:00 Placenta Delivery Date/Time: 04/12/21 06:44:00 Placenta Delivery Method: Spontaneous Placenta to Pathology: No Cord Blood Banking: No Cord Blood Sent to Lab: Yes Representative Phlebotomy Services: Alexus Maynard Maternal Delivery Complications: None Delivery Physician: Angel Simons MD Attending Physician: Erika Yin DO Information Risk Factors: None Complications: None Nuchal Cord Times: 2 Nuchal Cord Tension: Loose Nuchal Cord Intervention: Reduced prior to delivery Umbilical Cord Description: 3 vessel cord Infant Data Gender: Male ID Band Number: [id number] Outcome: Live Weight: 3.360 kg Score 1 Minute: 9 Score 5 Minute: 9 Score 10 Minute: 9 . Impression and Plan Erika is a 31-year-old 4 para 3003 female at 37+ weeks estimated gestational age (EDC 05/17/2021) who presented to the labor and delivery unit of [facility] on 04/11/2021 with the complaint of strong and frequent uterine contractions. These contractions had developed earlier this same day having increased in both frequency and intensity thereafter. Initial vaginal examination revealed the cervix to be dilated to 4 cm being 70% effaced with the vertex at -2 station. Patient was observed with the heart rate tracing being reassuring. Approximately 1 hour after presentation cervix had dilated to 5 cm remaining 70% effaced. She was observed longer and further dilatation was confirmed for which admission was initiated. 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 Cervix was noted to be dilated at 8-9 cm at this time. Patient received an epidural anesthetic which proved quite effective. Over the next several hours the cervix dilated very slowly to complete. Pushing efforts were then commenced. The infant was noted to lie in an occiput posterior presentation. This persisted despite maternal repositioning and a limited attempt at manual rotation. Mrs. Barnes was able to push very effectively however. After pushing for nearly 1 hour the vertex was noted to crown. The head was delivered atraumatically. A nuchal cord was identified and this was reduced on the perineum. Following restitution of the shoulders the remainder of the child was extracted. He was placed upon the maternal abdomen. After short delay the umbilical cord was clamped x2 and transected. The placenta was then delivered spontaneously and intact. Patient did incur a second-degree perineal laceration which was easily repaired with 3-0 Vicryl suture. Estimated blood loss was approximately 400 cc. Both Erika and her son tolerated delivery well. scores for the were assigned is 9, 9 and 9 at 1, 5 and 10 minutes respectively. Electronically signed by Angel Simons MD 04/13/21 06:58 EDT Normal [facility] .Fentanyl Scrn with Conf,Uro n 04-11-2021 Ur Fentanyl Scrn w/Confirm Negative Normal NEG <1.0 [facility] Comment on above: Performed By: #### C [id number] #### [address] [address] Ur Fentanyl Scrn w/Confirm Qnt 0.00 ng/mL Normal <=0.9 9 [facility] Comment on above: Performed By: #### C [id number] #### [address] [address] CBC w/ Diffon 04-11-2021 Erythrocyte distribution wid th (RBC) [Ratio] 13.4 % Normal 11.6-14.8 [facility] Comment on above: Performed By: #### C [id number] #### [address] [address] Hematocrit (Bld) [Volume fraction] 34.2 % Low 36.0-46.0 [facility] Comment on above: Performed By: #### C [id number] #### [address] [address] Hemoglobin (Bld) [Mass/Vol] 11.7 g/dL Low 12.0-16. 0 [facility] Comment on above: Performed By: #### C [id number] #### [address] [address] MCH (RBC) [Entitic mass] 28.3 pg Normal 27.0-35.0 [facility] Comment on above: Performed By: #### C [id number] #### [address] [address] MCHC 34.3 % Normal 31.0-37.0 [facility] Comment on above: Performed By: #### C D:[id number] #### [address] [address] MCV (RBC) [Entitic vol] 82.5 fL Normal 80.0-100.0 [facility] Comment on above: Performed By: #### C [id number] #### [address] [address] Platelet 282 x10*3/mcL Normal 150-350 [facility] Comment on above: Performed By: #### C [id number] #### [address] [address] Platelet mean volume (Bld) [Entitic vol] 8.6 fL Normal 6.7-10.6 [facility] Comment on above: Performed By: #### C [id number] #### [address] [address] RBC 4.14 x10*6/mcL Normal 3.80-5.20 [facility] Comment on above: Performed By: #### C [id number] #### [address] [address] WBC 11.3 x10*3/mcL High 4.5-11.0 [facility] Comment on above: Performed By: #### C D:[id number] #### [address] [address] Diff Autoon 04-11-2021 Baso Absolute 0.0 x10*3/mcL Normal 0.0-0.2 [facility] Comment on above: Performed By: #### . Automated Diff #### [address] [address] Basophils/100 WBC (Bld) 0.4 % Normal 0.0-1.5 B [facility] Comment on above: Performed By: #### . Automated Diff #### [address] [address] Eos Absolute 0.1 x10*3/mcL Normal 0.0-0.4 [facility] Comment on above: Performed By: #### . Automated Diff #### [address] [address] Eosinophils/100 WBC (Bld) 0.5 % Normal 0.0-5.4 [facility] Comment on above: Performed By: #### . Automated Diff #### [address] [address] Lymph Absolute 2.2 x10*3/mcL Normal 1.0-4.8 [facility] Comment on above: Performed By: #### . Automated Diff #### [address] [address] Lymphocytes/100 WBC (Bld) 19.5 % Low 27.2-40.8 [facility] Comment on above: Performed By: #### . Automated Diff #### [address] [address] [place] Absolute 1.1 x10*3/mcL Normal 0.1-1.1 [facility] Comment on above: Performed By: #### . Automated Diff #### [address] [address] Monocytes/100 WBC (Bld) 9.5 % Normal 3.7-11.9 [facility] Comment on above: Performed By: #### . Automated Diff #### [address] [address] Neutro Absolute 7.9 x10*3/mcL High 1.8-7.7 [facility] Comment on above: Performed By: #### . Automated Diff #### [address] [address] Neutro Auto 70.1 % Normal 47.2-70.8 [facility] Comment on above: Performed By: #### . Automated Diff #### [address] [address] UDS OB/Con 04-11-2021 Creatinine [Mass/Vol] 90.3 mg/dL Normal [facility] Comment on above: Performed By: #### C [id number] #### [address] [address] Ur Amph Scrn w/Conf Negative Normal NEG = <1000 [facility] Comment on above: Performed By: #### C [id number] #### [address] [address] Ur Yoko Scrn w/Conf Negative Normal NEG = <200 [facility] Comment on above: Performed By: #### C [id number] #### [address] [address] Ur Benzodia Scrn w/Conf Negative Normal NEG = <200 [facility] Comment on above: Performed By: #### C D:[id number] #### [address] [address] Ur Cannab Scrn w/Conf Negative Normal NEG = <50 [facility] Comment on above: Performed By: #### C [id number] #### [address] [address] Ur Cocaine Scrn w/Conf Negative Normal NEG = <300 [facility] Comment on above: Performed By: #### C [id number] #### [address] [address] Ur Methadone Scrn w/Conf Negative Normal NEG = <300 [facility] Comment on above: Performed By: #### C [id number] #### [address] [address] Ur Opiate Scrn w/Conf Negative Normal NEG = <300 [facility] Comment on above: Performed By: #### C [id number] #### [address] [address] Ur Oxy Screen w/Conf Negative Normal NEG = <100 [facility] Comment on above: Performed By: #### C [id number] #### [address] [address] Ur Oxy Scrn Qnt w/Confirm 4 ng/mL Normal <=99 [facility] Comment on above: Performed By: #### C D:[id number] #### [address] [address] Ur PCP Scrn w/Conf Negative Normal NEG = <25 [facility] Comment on above: Performed By: #### C D:[id number] #### [address] [address] UA pH 7.0 Normal 4.5 - 7.8 [facility] Comment on above: Performed By: #### C D:[id number] #### [address] [address] UA Spec Grav 1.015 Normal 1.003-1.035 [facility] Comment on above: Performed By: #### C D:[id number] #### [address] [address] [employer] [place] Yes Normal [facility] Comment on above: Performed By: #### C D:[id number] #### [address] [address] Ur Buprenorphine Scrn w/Conf Negative Normal NEG = < 10 [facility] Comment on above: Performed By: #### C D:[id number] #### [address] [address] Obstetrics Office/Clinic Not edith 04-09-2021 Obstetrics Office/Clinic Note Billing based on complexity of care not time spent Electronically signed by Gigi Barahona DO 04/10/21 18:35 EDT Normal [facility] Chlam & GC, DNAon 04-02-2021 Chlamydia, DNA Negative Normal Negative [facility] Comment on above: Result Comment: The [employer]TIM[employer] Combo 2 Assay is a target amplification nucleic acid probe test that utilizes target capture for the in-vitro qualitative detection of ribosomal RNA (rRNA) form Chlamydia trachomatis/CT and /or Neisseria gonorrhoeae/GC. A negative result does not preclude the presence of a CT or GC infection because results are dependent of adequate specimen collection, absence of inhibitors and sufficient rRNA to be detected. Results from the APTIMA Combo 2 Assay should be interpreted in conjunction with other laboratory and clinical data available to the clinician. Performed By: #### C D:[id number] #### [place] [address] Gonorrhea, DNA Negative Normal Negative [facility] Comment on above: Result Comment: The APTIMA Combo 2 Assay is a target amplification nucleic acid probe test that utilizes target capture for the in-vitro qualitative detection of ribosomal RNA (rRNA) form Chlamydia trachomatis/CT and /or Neisseria gonorrhoeae/GC A negative result does not preclude the presence of a CT or GC infection because results are dependent of adequate specimen collection, absence of inhibitors and sufficient rRNA to be detected. Results from the APTIMA Combo 2 Assay should be interpreted in conjunction with other laboratory and clinical data available to the clinician. Performed By: #### C D:[id number] #### [address] [address] Grp B PCRon 03-29-2021 Allergic to Penicillin? Unknown Normal B [facility] Comment on above: Performed By: #### C D:[id number] #### [address] [address] Group B Strep PCR Negative Normal Negative [facility] Comment on above: Result Comment: The [employer] GBS Assay is an automated nucleic acid extraction and purification Real-Time PCR detection of Streptococcus agalactiae, Group B Strep nucleic acid sequences. A positive result indicates the presence of GBS nucleic acid from COOPER broth enrichment of vaginal-rectal swab specimens obtained from women. A positive result does not necessarily indicate the presence of viable organisms. Per CDC Recommendation Guidelines, women with positive intrapartum NAAT results for GBS should receive antibiotic prophylaxis with penicillin G, ampicillin, or cefazolin. Reflex susceptibility should be performed prior to use of clindamycin only on GBS isolates from penicillin-allergic women who are considered a high risk for anaphylaxis. Treatment with vancomycin without addtional testing is warranted if resistance to clindamycin is noted. Performed By: #### C D:[id number] #### [place] [address] Inpatient Clinical Summaryon 03-27-2021 Inpatient [place] [address] [place] [address] Clinical Summary Person Information Name: Erika Barnes Age: 31 Years : 1990 Sex: Female PCP: Dee Hayden DO Marital Status: Phone: PCP: [id number] Race: White Ethnicity: Not or Language: Swedish Visit Id: Visit Reason: contractions Speciality: Acuity: Ante Enc Type: Outpatient in a Bed Med Service: Gynecology-Obstetrics Arrival: 03/27/2021 17:47:20 Discharge: Dispo Type: Address: [address] [place] [address] Diagnosis: Discharged To: Home Treatments: Devices/Equipment: Professional Skilled Services: Special Services and Community Resources: Mode of Discharge Transportation: Discharge Orders Allergies No Known Allergies Functional Status: Sensory Deficits: History of Falls: Mobility Assistance Prior to Admission: ADLs: Independent Gait: Steady Ambulation Assist: Assistive Device: Special Orthopedic Devices: Current Level of Assistance for Self-Care/Mobility: Cognitive Status: Orientation: Orientation Assessment Oriented x 4 Level of Consciousness: Alert Characteristics of Speech: Clear Aspiration Risk: None Affect/Behavior: Appropriate Laboratory or Other Results This Visit (last charted value for your 03/27/2021 visit) No Laboratory or Other Results This Visit Measurements: Height: Weight: Blood Pressure: 102 mmHg / BMI: Respiratory: Respirations: Unlabored Respiratory Symptoms: Cardiovascular: Heart Sounds: Heart Rhythm: Regular Gastrointestinal: GI Symptoms: Bowel Sounds: Present Vital Signs: Temp Axillary: Temp Temporal Artery: 36.0 degC Temp Oral: Temp Rectal: Apical Heart Rate: Peripheral Pulse Rate: Heart Rate: 86 bpm Respiratory Rate: 16 br/min Diet Diet: Feeding Tolerance: Appetite: Gerardo Assessment: 22 Procedures No Procedures Documented Immunizations No Immunizations Documented This Visit Medications that have not changed Other Medications multivitamin, ( Multivitamins with Folic Acid 0.4 mg oral tablet) 1 Tabs Oral (given by mouth) every day. Refills: 3. Last Dose: Care Team Members: Attending Physician: Gigi Barahona DO Consulting Physician: Referring Physician: Follow up: Type Location Start Finish State OB Visit - Established [facility] - [place] 04/01/2021 13:15:00 04/01/2021 13:30:00 Confirmed OB Visit - Established [facility] - [place] 04/09/2021 12:15:00 04/09/2021 12:30:00 Confirmed OB Visit - Established [facility] - [place] 04/16/2021 12:15:00 04/16/2021 12:30:00 Confirmed OB Visit - Established [facility] OBTHERESA [facility] 04/23/2021 07:45:00 04/23/2021 08:00:00 Confirmed OB Non Stress Test [facility] - [place] 04/29/2021 13:00:00 04/29/2021 13:45:00 Confirmed Ultrasound Visit 40 [facility] - [place] 04/29/2021 13:30:00 04/29/2021 14:10:00 Confirmed OB Visit - Established [facility] - [place] 04/29/2021 14:15:00 04/29/2021 14:30:00 Confirmed SP Established Patient Visit 15 [facility] OB[facility] - [place] 05/12/2021 10:00:00 05/12/2021 10:15:00 Confirmed Normal [facility] Progress Note-Nurseon 06-03- 2021 Progress Note-Nurse Patient: Cristin Barnes Age: 31 years Sex: Female : 1990 Associated Diagnoses: None Author: Jasmin Greene Basic Information VS/Measurements Vital Signs 03/27/2021 18:00 EDT Temperature Temporal Artery 36.0 degC LOW Heart Rate Monitored 86 bpm Respiratory Rate 16 br/min Systolic Blood Pressure 102 mmHg Diastolic Blood Pressure 65 mmHg , Vital Signs (last 24 hrs) Last Charted Resp Rate 16 br/min (MAR 27 18:00) SBP 102 mmHg (MAR 27 18:00) DBP 65 mmHg (MAR 27 18:00) /Para: Para Information: : 4 Para Term: 3 Para : 0 Para Abortions: 0 Para Livin. Include all results : NST results 03/27/2021 18:52 EDT Discharge Instructions Discharge Instructions Inpatient Patient Summary Inpatient Patient Summary 03/27/2021 18:52 EDT Inpatient Clinical Summary Inpatient Clinical Summary 03/27/2021 18:52 EDT Ed-Activity Expectations Verbalizes understanding Barriers to Learning None evident Ed- Movement Monitoring Verbalizes understanding Ed-Plan of Care Verbalizes understanding Ed-Premature Labor Signs and Symptoms Verbalizes understanding Ed-Reportable Symptoms Verbalizes understanding Responsible Learner/s Present Responsible Learner/s Present Teaching Method Explanation Mode of Transfer Private vehicle Mode of Discharge Ambulatory Discharge To, OB Home independently 03/27/2021 18:51 EDT Discharge Instructions Discharge Instructions 03/27/2021 18:48 EDT Discharge Instructions Discharge Instructions Patient Signature Consent Forms Consent For Treatment 03/27/2021 18:46 EDT Monitoring Annotations Pt updated on POC. Voices understanding. Denies further questions or needs. 03/27/2021 18:[address] Barahona called. Notified of SVE. Strip reviewed. D/C order received. 03/27/2021 18:30 EDT Uterine Contraction Monitoring Method External toco Uterine Contraction Duration 50 Uterine Contraction Description Other: x1 A FHR Monitoring Method: Doppler ultrasound FHR Monitoring Frequency: Continuous FHR Baseline: 130 bpm FHR Baseline Description: Normal, 110-160 bpm FHR Baseline Variability: Moderate variability FHR Accelerations: Present FHR Acceleration Description: Abrupt FHR Deceleration: Absent 03/27/2021 18:15 EDT Uterine Contraction Monitoring Method External toco Uterine Contraction Description None FHR Monitoring Method: Doppler ultrasound FHR Monitoring Frequency: Continuous FHR Baseline: 140 bpm FHR Baseline Description: Normal, 110-160 bpm FHR Baseline Variability: Moderate variability FHR Accelerations: Present FHR Acceleration Description: Abrupt FHR Deceleration: Absent 03/27/2021 18:05 EDT Monitoring Annotations Previous orders recieved from Dr. Barahona prior to pt arrival for NST, SVE, GBS swab. 03/27/2021 18:03 EDT Monitoring Annotations Pt arrives with c/o contractions since 1500 today that are 8 minutes apart. Denies VB or LOF. Rating pain 11/03. 03/27/2021 18:00 EDT Temperature Temporal Artery 36.0 degC LOW Heart Rate Monitored 86 bpm Respiratory Rate 16 br/min Systolic Blood Pressure 102 mmHg Diastolic Blood Pressure 65 mmHg Cardiovascular Symptoms None Nail Bed Color Lovel[place] Clubbing Present No Capillary Refill Less than 2 seconds Jugular Venous Distention Unable to visualize Heart Rhythm Regular Edema None Respirations Unlabored Respiratory Pattern Regular All Lobes Breath Sounds Clear Cough None Oxygen Therapy Room Air GI Symptoms None Bowel Sounds All Quadrants Present Genitourinary Symptoms None Uterine Contraction Monitoring Method External toco Uterine Contraction Description Other: x1 FHR Monitoring Method: Doppler ultrasound FHR Monitoring Frequency: Continuous FHR Baseline: 140 bpm FHR Baseline Description: Normal, 110-160 bpm FHR Baseline Variability: Moderate variability FHR Accelerations: Present FHR Acceleration Description: Abrupt FHR Deceleration: Variable Cervix Dilation 1 cm Cervix Effacement 50 Station -2 Station Calculation -2 Cervical Position Posterior Vaginal Exam Performed By Jasmin Greene Labor Check Charge Yes NST Charge Yes Range of Motion Left Upper Extremity Active Range of Motion Right Upper Extremity Active Range of Motion Left Lower Extremity Active Range of Motion Right Lower Extremity Active Skin Color General Usual for ethnicity Skin Temperature Warm Skin Moisture General Dry Skin Turgor General Elastic Skin Integrity General Intact Sensory Perception Gerardo No impairment Moisture Gerardo Rarely moist Activity Gerardo Walks frequently Mobility Gerardo No limitation Nutrition Gerardo Adequate Friction and Shear Gerardo No apparent problem Gerardo Score 22 Neurological Symptoms None Gait Steady Extremity Movement Lower extremity equal, Upper extremity equal Characteristics of Communication Appropriate Characteristics of Spe (more content not included)... Normal [facility] [place] OB Follow Upon 03-06-2021 OB Follow Up INDICATION: Supervision of normal in the third trimester SERVICE(S) PROVIDED: [OB follow-up] OMARI: 04/27/2021 GA: 32 weeks 3 days OMARI(AUA): 04/15/2021 GA(AUA): 34 weeks 1 day EFW: 2384 g ?348 g (5 pounds 4 ounces) EFW%: 81.9% MEASUREMENTS VALUE PERCENTAGE WEEKS BPD(HADLOCK) 8.56 cm 92% 34 weeks 4 days OFD(HC) 11.1 cm HC(HADLOCK) 31.35 cm 82% 35 weeks 1 day AC(HADLOCK) 30.93 cm 97% 34 weeks 6 days FL(HADLOCK) 6.3 cm 41.9% 32 weeks 4 days HC/AC(GONZALEZ) [1.01?WNL] EVALUATION POSITION [VERTEX] PLACENTA LOCATION ANTERIOR AMNIOTIC FLUID 13.97 cm HEART RATE 151 bpm COMMENTS: [] IMPRESSION: [Single viable IUP in the vertex position. Average ultrasound age is 34 weeks 1 day. Composite growth is in the 81st percentile. The AC measures in the 97th percentile and the BPD measures in the 92nd percentile. All other biometric measurements are appropriate for gestational age. Bilateral mild pyelectasis is noted at upper limits of normal. Amniotic fluid index is within normal limits at 13.9 cm. Anterior placenta appears to be grade 1. Good movement and breathing are noted on today's ultrasound.] * ultrasounds do have limitations and therefore cannot diagnose all malformations or problems of an unborn baby. One should never interpret a normal scan as a guarantee that the baby will be completely normal. Final Signed by: Gigi Barahona DO Signed (Electronic Signature): 03/06/2021 9:45 pm Transcribed by: LUCIE Transcribed DT/TM: 03/05/2021 1:40 (If Report Is Signed, Electronically Signed in Other Vendor System) Normal [facility] Obstetrics Office/Clinic Not edith 03-05-2021 Obstetrics Office/Clinic Note Billing dictated by medical decision yvonne ing, complexity of care ... Not time spent with patient Electronically signed by Gigi Barahona DO 03/05/21 14:15 EDT Normal [facility] ABSC Autoon 02-18-2021 ABSC Auto Negative Normal [facility] Comment on above: Performed By: #### C [id number] #### [address] [address] Rh Onlyon 02-18-2021 Rh Only Negative Normal [facility] Comment on above: Performed By: #### C [id number] #### [address] [address] RhIG Requeston 02-18-2021 RhIG Request History Check: Done RhIg Request Reason: Normal [facility] Comment on above: Performed By: #### R ELVIRA ####[address] [address] CBCon 02-05-2021 Erythrocyte distribution wid th (RBC) [Ratio] 13.4 % Normal 11.6-14.8 [facility] Comment on above: Performed By: #### C BCI #### [address] [address] Hematocrit (Bld) [Volume fraction] 37.1 % Normal 36.0-46.0 [facility] Comment on above: Performed By: #### C BCI #### [address] [address] Hemoglobin (Bld) [Mass/Vol] 12.5 g/dL Normal 12.0-16. 0 [facility] Comment on above: Performed By: #### C BCI #### [address] [address] MCH (RBC) [Entitic mass] 31.2 pg Normal 27.0-35.0 [facility] Comment on above: Performed By: #### C BCI #### [address] [address] MCHC 33.8 % Normal 31.0-37.0 [facility] Comment on above: Performed By: #### C BCI #### [address] [address] MCV (RBC) [Entitic vol] 92.3 fL Normal 80.0-100.0 B [facility] Comment on above: Performed By: #### C BCI #### [address] [address] Platelet 250 x10*3/mcL Normal 150-350 [facility] Comment on above: Performed By: #### C BCI #### [address] [address] Platelet mean volume (Bld) [Entitic vol] 8.5 fL Normal 6.7-10.6 [facility] Comment on above: Performed By: #### C BCI #### [address] [address] RBC 4.02 x10*6/mcL Normal 3.80-5.20 [facility] Comment on above: Performed By: #### C BCI #### [address] [address] WBC 8.7 x10*3/mcL Normal 4.5-11.0 [facility] Comment on above: Performed By: #### C BCI #### [address] [address] Gest Diab Scn (ACOG)on 02-05 History of diabetes or gastric bypass? No Normal [facility] Comment on above: Performed By: #### C [id number] #### [address] [address] Glucose [Mass/Vol] 70 mg/dL Normal 70-134 [facility] Comment on above: Result Comment: Acco rding to the ADA, a glucose threshold of > 139 mg/dL after a 50-gram load identifies approximately 80% of women with gestational diabetes mellitus, while the sensitivity is further increased to approximately 90% by a threshold of >129 mg/dL. Performed By: #### C [id number] #### [address] [place] [address] HIV1/2 Ab,Ag Scnon 1 HIV-1/2 Ab,Ag 0.12 Normal [facility] Comment on above: Performed By: #### C [id number] #### [address] [place] [address] HIV-1/2 Ab,Ag Interp Normal Negative [facility] Comment on above: Result Comment: N egative Negative Performed By: #### C [id number] #### [address] [address] Obstetrics Office/Clinic Not edith 02-05-2021 Obstetrics Office/Clinic Note I personally spent 41 minutes caring for patient today Electronically signed by Gigi Barahona DO 02/05/21 08:45 EDT Normal [facility] US OB > 14 Weekson 1 OB > 14 Weeks INDICATION: anatomical survey SERVICES PROVIDED: OB greater than 14 weeks OMARI: April 27, 2021 GA: 21.3 weeks GA(AUA): 22.1 weeks OMARI(AUA): April 22, 2021 EFW: 510 g - 1 pound 2 ounces EFW PERCENTILE: 58% HEART RATE: 176 bpm MEASUREMENTS VALUE PERCENTILE AGE BPD (HADLOCK) 5.22 cm 65% 21.6 weeks OFD (HC) 7.03 cm HC (HADLOCK) 19.62 cm 57% 21.6 weeks AC (HADLOCK) 18.18 cm 87% 23 weeks FL (HADLOCK) 3.79 cm 64% 22.1 weeks HC/AC RATIO (GONZALEZ) 1.08?WNL CEREBELLUM 2.35 cm CISTERNA 7.04 mm LATERAL VENTS 6.93 mm NUCHAL FOLD 4.66 mm CERVICAL LENGTH 3.7 cm long BRAIN LATERAL VENTRICLES [SEEN CEREBELLUM SEEN CISTERNA MAGNA SEEN NUCHAL FOLD SEEN HEART 4 CHAMBERS SEEN LVOT SEEN RVOT SEEN 3VV SEEN AORTIC ARCH SEEN DUCTAL ARCH SEEN 3VTV+3VTV W/COLOR SEEN EVALUATION POSITION BREECH NOSE/LIPS SEEN PROFILE SEEN ABDOMINAL CORD INSERTION SEEN STOMACH SEEN DIAPHRAGM SEEN BLADDER SEEN RT KIDNEY SEEN LT KIDNEY SEEN SPINE SEEN UPPER EXTREMITIES SEEN LOWER EXTREMITIES SEEN GENITALIA patient does not want to know gender of baby-4 PLACENTA CORD INSERTION CENTRAL PLACENTA LOCATION ANTERIOR UMBILICAL CORD 3 VESSEL CORD AMNIOTIC FLUID WNL COMMENTS: IMPRESSION: Single viable 21.3-week IUP in the breech presentation. The average ultrasound age is 22.1 weeks. Size is slightly greater than dates. The composite growth is 510 g - 1 pound 2 ounces. The estimated body weight is in the 58 percentile. All biometric measurements are appropriate for gestational age. There is a normal HC/AC ratio. The anatomical survey was completed and no structure abnormalities were visualized. The placenta is anterior, there is no placenta previa, the cervix is long and closed, there is normal amniotic fluid, good movements are visualized. * ultrasounds do have limitations and therefore cannot diagnose all malformations or problems of an unborn baby. One should never interpret a normal scan as a guarantee that the baby will be completely normal. Final Signed by: Gigi Barahona DO Signed (Electronic Signature): 12/19/2020 11:40 am Transcribed by: KAIA Transcribed DT/TM: 12/18/2020 1:48 (If Report Is Signed, Electronically Signed in Other Vendor System) Normal [facility] Encounters Encounter Date Encounter Type Care Provider Facility Start: 10-05-2023 End: 10-05-2023 ambulatory ARTHUR GALLARDO Not Available Start: 09-21-2023 End: 09-21-2023 ambulatory ANN MORENO Not Available Start: 10-10-2022 End: 10-10-2022 ambulatory Josh Cody Other [facility] Other Start: 10-10-2022 Telephone encounter [facility] Start: 12-03-2021 End: 12-04-2021 ambulatory [facility] Facility:[facility] Start: 02-18-2021 End: 02-18-2021 ambulatory DO [facility] Facility:[facility] Payers Date Payer Category Payer Medicaid [id number] 2021 Unknown 1990 Unknown [id number] [id number]. [id number] 1990 Unknown [id number] 2.16. [id number] 1990 Unknown [id number] 1990 Unknown [id number] Unknown [id number] 2.1 [id number] Social History Date Type Detail Facility Unknown if ever smoked [facility] Other Sex Assigned At Sex Assigned At Bir th [facility] Other Clinical Notes 12-12-2020 to 12-03-2021 Note Date & Type Note Facility 12-03-2021 Note Patient Education Ma terials Name: Erika Barnes Current Date: 12/03/2021 12:24:38 [place] : 1990 The following sheet(s) are the Patient Education Leaflets for Erika Barnes Ambulatory Resources for Heart Health Living with heart disease means making a lot of changes. You?re likely to have a range of new feelings to deal with. Reach out to the people close to you. Also, support groups can provide helpful advice. Family and Friends You may have concerns about making changes in your life. Talk over your feelings with someone you trust. Family and friends often want to help but may not know how. Ask a friend to go to the store with you and pick out healthy foods. Be clear about any physical limits you have, such as limiting the distance you can walk. Support from friends and family not only feels good, it?s a great stress dolphin trainer. Resources ?Your cardiac rehabilitation program and local hospital or clinic ?Citizen Of [place] Association of Cardiovascular and Pulmonary Rehabilitation www.aacvpr.org ?Citizen [place] Diabetes Association 827-855-7480 www.diabetes.org ?Citizen [place] Heart Association 779-964-7908 heart.org ?Your Guide to Lowering Your Blood Pressure with DASH?www.nhlbi.nih.gov/health/publi c/heart/hbp/dash ?National Heart, Lung, and Blood [place] 148-662-9836 www.nhlbi.nih.org ?WomenHeart: The National Coalition for Women with Heart Disease 110-953-3957 www.womenheart.org ?The member services department of your health insurance plan ?The medical benefits department, human resources department, or wellness center at your workplace ?An Internet or library search on heart disease, cardiovascular disease, coronary artery disease, peripheral artery disease, or stroke ? 5387-[address] [employer] [place] [address]. All rights reserved. This information is not intended as a substitute for professional medical care. Always follow your healthcare professional's instructions. Oncology Breast Health: Breast Self-Awareness What is breast self-awareness? Breast self-awareness is knowing how your breasts normally look and feel. Your breasts change as you go through different stages of your life. So it?s important to learn what is normal for your breasts. Knowing about your breasts helps you spot any changes in them right away. Tell your healthcare provider about any changes. Why is breast self-awareness important? Many experts now say that women should focus on breast self-awareness instead of doing a breast self-examination (BSE). These experts include the [place] Cancer Society and the [place] Congress of Obstetricians and Gynecologists. Some experts even advise not teaching women to do a BSE. That?s because research hasn?t shown a clear benefit to doing BSEs. Breast self-awareness is different than a BSE. It isn?t about following a certain method and schedule. It?s about knowing what's normal for your breasts. That way you can spot even small changes right away. If you see any changes, tell your healthcare provider. Changes to look for Call your healthcare provider if you find any changes in your breasts that worry you. These changes may be: ?A lump ?Nipple discharge other than breastmilk, especially if it's bloody ?Swelling ?A change in size or shape ?Skin changes, such as redness, thickening, or dimpling of the skin ?Swollen lymph nodes in the armpit ?Nipple problems, such as pain or redness If you find a lump Call your provider if you find lumpiness in one breast. Also call if you feel something different in the tissue or feel a definite lump. Sometimes lumpiness may be due to menstrual changes. But there may be reason for concern. Your provider may want to see you right away if you have: ?Nipple discharge that is bloody ?Skin changes on your breast, such as dimpling or puckering It?s okay to be upset if you find a lump. Be sure to call your provider right away. Remember that most breast lumps are benign. This means they are not cancer. ? 3998-7995 [employer]. [address] [place] [address]. All rights reserved. This information is not intended as a substitute for professional medical care. Always follow your healthcare professional's instructions. Rheumatology Preventing Osteoporosis: Meeting Your Calcium Needs Your body needs calcium to build and repair bones. But it can't make calcium on its own. That's why it's important to eat calcium-rich foods. Some foods are naturally rich in calcium. Others have calcium added (fortified). It's best to get calcium from the foods you eat. But if you can't get enough, you may want to take calcium supplements. To meet your daily calcium needs, try the foods listed below. Dairy Fish & beans Other sources Source ? Calcium (mg) per serving ? Source ? Calcium (mg) per serving ? Source ? Calcium (mg) per serving (more content not included)... 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 Let your body be your guide. Most women are ready to exercise after 6 weeks,?where some women will be ready a few days after giving . If you?ve had a section, you?will?need more time.?Ask your healthcare provider when it is safe to?start exercising again. Exercise tips for new mothers You can start doing Kegel exercises as soon as you deliver your baby. Do them at least 10 times a day to help avoid bladder problems later on. Kegel exercises help strengthen your pelvic muscles. To do them, squeeze the muscles that you use to stop passing urine (do not do this while urinating). Hold that squeeze for a count of 10, then release.? You will want to resume other exercise gradually and talk to your healthcare provider before starting. Always exercise with care. When you first start exercising after giving , try simple exercises that help strengthen major muscle groups, including abdominal and back muscles. Slowly add moderate-intensity exercise.?Try to work up to at least 150 minutes of moderate-intensity aerobic activity every week.?Moderate intensity means you are moving enough to raise your heart rate and start sweating. You can still talk normally. But you cannot sing.?Muscle-strengthening exercises should be done along with your aerobic activity on at least 2 days a week. Look for ways to combine exercising with being with your new baby. Try putting your baby into a front pack or in the stroller and take a walk. Strengthening stomach muscles Many new mothers want to strengthen their stomach muscles after giving . Try this exercise when you?re ready to resume your program. It will strengthen the front and side muscles of?your stomach: ?Lie on your back with your knees bent and feet flat on the floor. Cross your arms over your stomach. Use your fingers to gently pull the sides of the stomach toward the middle of your body. ?Exhale and try to pull the stomach muscles toward your spine. Gently raise your shoulders off the floor, no more than 6 to 8 inches. Hold for 5 seconds. Repeat 5 times. ? 8449-0300 [employer]. [address] [place] [address], [place] [address]. All rights reserved. This information is not intended as a substitute for professional medical care. Always follow your healthcare professional's instructions. [facility] 04-16-2021 Note Patient Education Ma terials Name: Erika Barnes Current Date: 04/16/2021 10:53:59 [place] : 1990 The following sheet(s) are the Patient Education Leaflets for Erika Barnes Pediatrics After Delivery: When to Call the Healthcare Provider Health problems sometimes arise with you or your baby after delivery. Call your baby's healthcare provider or your healthcare provider if you see any of the signs below.?? Watch your baby for these signs Call your baby?s healthcare provider if your baby: ?Has a rectal or forehead (temporal artery) temperature of 100.4?F (38?C) or higher, or as directed by the provider ?Has fewer than 6?wet diapers a day (Hint: Disposable diapers may feel heavy or hard after being soaked.) ?Skin or whites of the eyes look yellow ?Has blue lips, tongue, or mouth ?Has skin that is pale, grayish, or bluish ?Cries for a long time, or if it sounds as if the cries are caused by pain ?Has diarrhea ?Refuses?2 feedings in a row ?Is inactive or listless ?Is vomiting ?Has blood in the stool or vomit ?Has a rash ?Has ear drainage ?Has trouble breathing ?Has a seizure ?Will not wake up ?Has redness, swelling, or pus at the umbilical cord ?Has a circumcision that does not seem to be getting better every day Trust your instincts. Call your baby's healthcare provider if you are concerned about your baby. Watch your own health for these signs Call your own healthcare provider if you have: ?Burning or pain in your breasts ?Red streaks or hard lumpy areas in your breasts ?Problems with ?A fever of 100.4?F (38?C) or higher, or as directed by your healthcare provider ?Extreme tiredness or body aches, as if you have the flu ?Feelings of very sad or anxious. Or feeling that you don?t want to be with your baby. ?Belly (abdominal) pain that isn?t eased with medicine ?Vaginal discharge that has a bad odor ?Vaginal bleeding that soaks more than one pad per hour ?Seizures ?Severe headache ?Swelling in your face or limbs If you had a section, call for concerns about your incision site. This includes pain, drainage, or bleeding from your incision. ? 4950-4459 [employer]. [address] [place], [place] [address]. All rights reserved. This information is not intended as a substitute for professional medical care. Always follow your healthcare professional's instructions. [facility] 04-11-2021 Note Chief Complaint R/O Labor History of Present Illness Erika is a 31-year-old 4 para 3003 female at 37 weeks 5 days EGA (EDC 05/17/2021) who presented to the labor and delivery unit of [facility] on 04/11/2021 with the complaint of frequent uterine contractions. These had developed earlier in the day having increased in both frequency and intensity thereafter. Initial vaginal examination revealed the cervix to be dilated to 4 cm being 70% effaced with the vertex at -2 station. Approximately 1 hour thereafter cervix had dilated to 5 cm remaining 70% effaced. She was observed further and upon reaching 6 cm dilatation she was admitted for expectant management. Review of her obstetric history reveals no high risk conditions. Review of Systems Constitutional: [No fevers, chills, sweats] Eye: [No recent visual problems] ENMT: [No ear pain, nasal congestion, sore throat] Respiratory: [No shortness of breath, cough] Cardiovascular: [No Chest pain, palpitations, syncope] Gastrointestinal: [No nausea, vomiting, diarrhea] Genitourinary: [No hematuria] Physical Exam Vitals & Measurements T: 36.8 ?C (Oral) TMIN: 36.4 ?C (Temporal Artery) TMAX: 36.8 ?C (Oral) HR: 81 (Monitored) RR: 17 BP: 107/71 HT: 170 cm WT: 77.7 kg WT: 77.7 kg (Dosing) BMI: 26.89 HEENT: Pupils equal round and reactive to light and accommodation. Extraocular motions intact. Sclera nonicteric. Neck is supple and freely mobile. Heart: Regular rate and rhythm. Abdomen: Gravid. palpates to the vertex. Fundal height is essentially consistent with dates. Pelvic: Most recent vaginal examination revealed the cervix to be dilated to 6 cm being 70% effaced with the vertex at -2 station. Extremities: Forage motion without clubbing or cyanosis noted. Additional Vitals No qualifying data available. Assessment/Plan 37 weeks gestation of Problem List/Past Medical History Ongoing Alopecia Positive test Rh negative status during Historical Procedure/Surgical History None Medications Inpatient butorphanol, 1 mg= 0.5 mL, IV Push, q1hr, PRN lidocaine 1% preservative-free injectable solution, 100 mg= 10 mL, Subcutaneous, Once, PRN LR 1,000 mL, 1000 mL, IV LR Bolus, 1000 mL, IV Bolus, Once, PRN methylergonovine, 0.2 mg, IM, Once, PRN Normal Saline Flush 0.9% injectable solution, 10 mL, IV Push, As Indicated, PRN Normal Saline Flush 0.9% injectable solution, 10 mL, IV Push, BID oxytocin IV additive 30 units + Premix Sodium Chloride 0.9% 500 mL Pepcid, 20 mg= 2 mL, IV Push, Once, PRN sodium citrate-citric acid 500 mg-334 mg/5 mL oral solution, 30 mL, Oral, Once, PRN Zofran, 4 mg= 2 mL, IV Push, Once, PRN Home Multivitamins with Folic Acid 0.4 mg oral tablet, 1 tabs, Oral, Daily, 3 refills Allergies No Known Allergies Social History Alcohol Past, 1-2 times per week Employment/School 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 Highest education level: University degree(s). Exercise Exercise duration: 20. Exercise frequency: Daily. Exercise type: pilates & body weight, jump rope. Home/Environment Lives with Children, Spouse. Living situation: Home/Independent. 1 dog, 1 cat, Goats & chickens (cat & dog are outside), Alcohol abuse in household: No. Substance abuse in household: No. Smoker in household: No. Nutrition/Health Type of diet: balanced. Regular, Wants to lose weight: No. Nutrition counseling Sexual Sexually active: Yes. Substance Abuse Denies All Tobacco Never (less than 100 in lifetime) Use:. Family History Alzheimer's disease: Grandfather (P). Lab Results Test Name Test Result Date/Time WBC 11.3 x10 RBC 4.14 x10 Hgb 11.7 g/dL (Low) 04/11/2021 18:41 EDT Hct 34.2 % (Low) 04/11/2021 18:41 EDT MCV 82.5 fL 04/11/2021 18:41 EDT MCH 28.3 pg 04/11/2021 18:41 EDT MCHC 34.3 % 04/11/2021 18:41 EDT RDW 13.4 % 04/11/2021 18:41 EDT Platelet 282 x10 Mean Platelet Volume 8.6 fL 04/11/2021 18:41 EDT Neutro Auto 70.1 % 04/11/2021 18:41 EDT Lymph Auto 19.5 % (Low) 04/11/2021 18:41 EDT Plumas Auto 9.5 % 04/11/2021 18:41 EDT Eos Auto 0.5 % 04/11/2021 18:41 EDT Basophil Auto 0.4 % 04/11/2021 18:41 EDT Neutro Absolute 7.9 x10 Lymph Absolute 2.2 x10 [place]umas Absolute 1.1 x10 Eos Absolute 0.1 x10 Baso Absolute 0.0 x10 Ur Creatinine Tox Scrn 90.3 mg/dL 04/11/2021 18:41 EDT Ur Amph Scrn w/Conf Negative.. 04/11/2021 18:41 EDT Ur Yoko Scrn w/Conf Negative.. 04/11/2021 18:41 EDT Ur Benzodia Scrn w/Conf Negative.. 04/11/2021 18:41 EDT Ur Cannab Scrn w/Conf Negative.. 04/11/2021 18:41 EDT Ur Cocaine Scrn w/Conf Negative.. 04/11/2021 18:41 EDT Ur Methadone Scrn w/Conf Negative.. 04/11/2021 18:41 EDT Ur Buprenorphine Scrn w/Conf Negative.. 04/11/2021 18:41 EDT Ur Oxy Screen w/Conf Negative.. 04/11/2021 18:41 EDT Ur Opiate Scrn w/Conf Negative.. 04/11/2021 18:41 EDT Ur PCP Scrn w/Conf Negative (more content not included)... 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 This is normal. To give yourself some peace of mind, pack a bag ahead of time. Do this about one month ahead of your estimated delivery date. Here is a list of things to remember: ?Personal care items, like a toothbrush, hair brush, lip balm, lotion, and shampoo ?Eyeglasses (if you wear them) ?Nightgown (if you plan to breastfeed, pack one that allows for nursing) ?Nursing bra if you plan to breastfeed ?Bathrobe and slippers ?Many hospitals provide maternity underwear, but you may want to bring underwear that can be soiled because you will have bleeding after delivery ?Comfortable clothes for you to wear home, like sweat pants, yoga pants, or other stretchable clothes, because your prepregnancy clothes may not fit after delivery of your baby ?Clothes for your baby to wear home ?Personal music player and headphones ?Camera with new batteries or pump station operator ?Coins for vending machines ?Telephone numbers of people to call after the ?Cell phone and pump station operator ?Insurance information and any other paperwork needed for your hospital stay ?A list of baby names you are considering ?An infant, rear-facing car seat for bringing home your baby (this is required by law) Add anything else that you don?t want to forget: __ __ __ __ __ __ __ ? 4544-[address] [employer] [place] [address]. All rights reserved. This information is not intended as a substitute for professional medical care. Always follow your healthcare professional's instructions. 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 It will also help you protect your back after your baby is born. Remember, if you?re having trouble protecting your back, it?s OK to ask the people around you for help! ? ? ? Bending Lifting Carrying Bending To protect your back as you bend: ?Put 1 foot slightly in front of the other. Bend at the knees and hips, pushing your hips backward. Keep your upper body as straight as you can. ?Face forward. Try to keep your ears, shoulders, and hips in a line. ?Don?t hold your breath. Lifting To lift a large object or a child: ?Get as close to the load as you can. Face forward, to help keep your ears and shoulders aligned. ?Use the muscles in your thighs and buttocks to stand up. As you lift, tighten your stomach and pelvic floor muscles. ?Don?t hold your breath. Avoid twisting. Carrying To carry a load safely: ?Carry an object or child in front of you, not resting on your hip. ?Break up your load into 2 smaller bags, if you can. Carry 1 bag on each side to maintain balance. Or, break the load into smaller ones and take more trips. ?Try to tighten your stomach and pelvic floor?muscles as you walk. This helps take weight off your back. ? 9508-3216 [employer]. [address] [place] [address]. All rights reserved. This information is not intended as a substitute for professional medical care. Always follow your healthcare professional's instructions. 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 You likely position yourself differently now than you did before you were . Did you know that standing, sitting, or lying in certain ways can lead to back pain? To ease pain, use positions that support your body comfortably.? Tips for good posture Using good posture means holding yourself so that your spine is aligned and your muscles can work without strain. To use good posture: ?Raise your chest and head. Try to keep your ears lined up over your shoulders. ?Use your stomach muscles to pull in your stomach. This reduces the amount of weight your back must support. ?Keep your pelvis level. Think of your pelvis as a bowl of water that will spill if it tips too far forward or backward. Standing If you must stand for long periods, try to change positions every 15 minutes. This gives your muscles a break. When standing, also: ?Keep your legs slightly apart. This helps you balance your weight. ?Rest one foot on a book, ledge, or low stool. Every few minutes, switch legs. ?Wear comfortable shoes with padded soles and arch support, like athletic shoes. Sitting When sitting in a chair or car, make sure your spine?s lumbar curve is supported. Use a chair with lumbar support built in, or put a firm pillow against your lower back. Also try the following: ?Sit with your knees slightly lower than your hips. Don?t cross your legs. ?Take deep breaths often. This helps keep your spine and stomach in the best position. ?Vary your activity each hour. For instance, get up from your desk and take a 5-minute walk around the office. Lying down To lie safely and comfortably: ?Lie on your side with your knees slightly bent. This takes pressure off?your uterus and improves blood flow to your baby. ?Place pillows under your abdomen and between your knees. ?To get out of bed, roll onto your side. Use your arms to push yourself into a seated position. Scoot to the edge of the bed and place your feet on the floor. Lean forward, then use your leg muscles to stand. ?Consider investing in a firm mattress. Lifting Tip to safely lift: ?Do not bend over from the waist to pick things up?squat down, bend your knees, and keep your back straight. ? 5711-1293 [employer]. [address] [place] [address], [place] [address]. All rights reserved. This information is not intended as a substitute for professional medical care. Always follow your healthcare professional's instructions. [facility] 02-13-2021 Note Patient Education Ma terials Name: Erika Barnes Connie Current Date: 02/13/2021 09:37:26 [place] : 1990 [facility]: [id number] The following sheet(s) are the Patient Education Leaflets for Kathy Barnesica Connie Motor Tester : Your Third Trimester Changes As the baby grows, your body changes too. You may also see signs that your body is getting ready for labor. Be patient. Within a few more weeks, your baby will be born. How you are changing Your body is preparing for the of your baby. Some of the most common changes are listed below. If you have any questions or concerns, ask your healthcare provider: ?You?ll gain more weight from fluids, extra blood, and fat deposits. ?Your breasts will grow as your body gets ready to feed the baby. They may be more tender. You may also notice a slight yellow or white discharge from the nipples. ?Discharge from your vagina may increase. This is normal. ?You might see some skin color changes on your forehead, cheeks, or nose. Most of these will go away after you deliver. How your baby is growing ? ? ? Month 7 Your baby?can open and close his or her eyes and?weighs around 4 pounds (1.8 kg).?If born prematurely (too early), your baby would likely survive with special care. Month 8 Your baby is building up body fat and?weighs around 6 pounds (2.7 kg). Month 9 Your baby weighs nearly 7 pounds (3.2 kg)?and is about 19 to 21 inches long. In other words, any day now... ? [id number] [employer]. [address] [place] [address]. All rights reserved. This information is not intended as a substitute for professional medical care. Always follow your healthcare professional's instructions. [facility] 01-29-2021 Note Patient Education Ma terials Name: Erika Barnes Current Date: 01/29/2021 08:49:10 [place] : 1990 The following sheet(s) are the Patient Education Leaflets for Taniyageorgina Erika Connie ED/Trauma Kick Counts It?s normal to worry about your baby?s health. One way you can know?your baby?s doing well is to record the baby?s movements once a day. This is called a kick count.?Remember to take your kick count records to all your appointments with your healthcare provider. How to count kicks Time how long it takes you to feel 10 kicks, flutters, swishes, or rolls. Ideally, you want to feel at least 10 movements within 2 hours. You will likely feel 10 movements in less time than that. Starting at 28 weeks, count your baby's movements daily. Follow your healthcare provider's instructions for kick counting. Here are tips for counting kicks: ?Choose a time when the baby is active, such as after a meal.? ?Sit comfortably or lie on your side.? ?The first time the baby moves,?write down?the time.? ?Count each movement until the baby has moved?10?times. This can take from 20 minutes to 2?hours.? ?If you have not felt 10 kicks by the end of the second hour, wait a few hours. Then try again. ?Try to do it at the same time each day. When to call your healthcare provider Call your healthcare provider?right away?if: ?You do a couple sets of kick counts during the day and your baby moves fewer than 10?times in?2?hours ?Your baby moves much less often than on the?days before. ?You have not felt your baby move all day. ? 3743-5489 [employer]. [address] [place] [address]. All rights reserved. This information is not intended as a substitute for professional medical care. Always follow your healthcare professional's instructions. [facility] 01-02-2021 Note Patient Education Ma terials Name: Erika Barnes Current Date: 01/02/2021 11:14:04 [place] : 1990 The following sheet(s) are the Patient Education Leaflets for Van Barnesssluca Rosales Motor Tester : More Common Questions On this sheet, you?ll find answers to some common questions about . If you have other questions, talk with your healthcare provider. Will traveling be too stressful? Not if you set the pace. When you plan a trip, allow time to stop and rest. You may even want to postpone travel until the second trimester, when your body is more adjusted to . Don?t wait as long as the third trimester, because of the possibility of going into early labor. Travel to a location where healthcare facilities are close by. You may want to take a copy of your records with you in case you need medical care when you are traveling. Can I still be a vegetarian? Yes. Be sure to consult a registered dietitian. And be sure to get enough of the following: ?Protein. Eat eggs and milk if you?re an ovo-lacto vegetarian. Eat vegetable proteins, like tofu and beans, if you?re a vegan. ?Calcium. If you don?t eat dairy, try soy milk, soy cheese fortified with calcium, and orange juice fortified with calcium. ?Vitamin B12.?You may need to take a supplement that includes folic acid. ?Vitamin D. If you don?t drink milk, ask about taking a supplement. ?Iron.?Your healthcare provider may recommend a supplement. Can I paint my nails? Yes. Nail maldivian is not thought to be dangerous during . Just be careful about breathing the fumes. Keep windows open or use a fan. However, long-term exposure to the solvents used to remove nail maldivian may not be safe. If you work in a nail salon, talk with your healthcare provider about safety concerns. Should I eat more if I exercise? You will only need an extra 100 calories for each 30 minutes of mild exercise. But you?ll also need more fluids. Drink at least an extra 8 ounces of water. Do I have to stop jogging? You can jog as long as you are comfortable. Many women find the impact or bounce of a jog doesn?t feel good. Some switch to brisk walking as their advances. What should I limit or avoid eating or drinking? ?Don't drink unpasteurized milk products?or?juices. ?Don't eat raw or undercooked meat, poultry, fish, or eggs.? ?Don't eat prepared meats, like hot dogs or deli meat, unless served steaming hot. ?Don't drink alcohol. ?Limit caffeine unless your?healthcare provider?tells you otherwise. Can I lift weights? If you have been lifting weights, there is no need to stop. Instead, keep the weights light and in control. Never hold your breath. If you haven?t been lifting weights, don?t start now. ? [id number] [employer] [address] [place] [address]. All rights reserved. This information is not intended as a substitute for professional medical care. Always follow your healthcare professional's instructions. 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 tales? surrounding . You may need help fact from fiction. On this sheet, you?ll find answers to a few common questions. If you have other questions, talk with your healthcare provider. Will working harm my baby? In most cases, working throughout your is not harmful at all. There may be concerns if the job involves dangerous machinery or chemicals, lifting, or standing for very long periods of time. Talk to your healthcare provider and employer about your particular job and . Is it safe to have sexual relations during ? Yes, unless you are specifically instructed not to by your healthcare provider. Why can?t I change the cat litter box? Cats carry a disease called toxoplasmosis. In adult humans, it shows up as a mild infection of the blood and organs. If you are infected during , the baby?s brain and eyes could be damaged. To be safe, have someone else change the litter. If you must handle it, wear a paper mask over your nose and mouth. Also, wear gloves and wash your hands afterward. Which medicines are safe? No prescription or [id number] medicine is safe for everyone all of the time. But sometimes medicines are needed. ?Be sure your healthcare provider knows you are . Then use only the medicines he or she advises you to take. Is it true that I can overheat my baby? Yes. To avoid making your baby too warm: ?Don?t sit in a Jacuzzi. A long, warm bath is fine, but not in water over 100?F (37.7?C). ?Exercise less intensely if you feel fatigued. Base your workout on how you feel, not your heart rate. Heart rates aren?t a good way to measure effort during . Can I lift and carry safely? Yes, if your healthcare provider doesn?t tell you otherwise. Learn to lift and carry safely to avoid injury and reduce back pain during . To protect your back: ?Bend at the knees to bring the load nearer. ?Get a good spring coiler hand. Test the weight of the load. ?Tighten your belly. Exhale as you lift. ?Lift with your legs, not with your back. ?Carry the load close to your body. ?Hold the load so you can see where you are going. What if I get sick? Most women get sick at least once during . Talk with your healthcare provider if you do. Most likely it will not affect your . Get plenty of rest and fluids, and eat what you can. Talk to your healthcare provider before taking any medicines. ? [id number] [employer]. [address] [place] [address], [place] [address]. All rights reserved. This information is not intended as a substitute for professional medical care. Always follow your healthcare professional's instructions. [facility] Evaluation note No Information [facility] [employer] Other Summary Purpose Family History No Family History Records FoundNo Family History Records Found Advance Directives No Advanced Directives Records FoundNo Advanced Directives Records Found Additional Source Comments INFORMATION SOURCE (unrecogn ized section and content) DATE CREATED AUTHOR 12/06/2021 [facility] DATE CREATED AUTHOR AUTHOR'S ORGANIZ ATION 10/07/2023 [facility] REASON FOR VISIT (unrecogniz ed section and content) test results FOR RECORDS PERTAINING TO PATIENTS WHO ARE OR HAVE BEEN ENROLLED IN A CHEMICAL DEPENDENCY/SUBSTANCEABUSE PROGRAM, SOME INFORMATION MAY BE OMITTED. This clinical summary was aggregated from multiple sources. Caution should be exercised in using it in the provision of clinical care. This summary normalizes information from multiple sources, and as a consequence, information in this document may materially change the coding, format and clinical context of patient data. In addition, data may be omitted in some cases. CLINICAL DECISIONS SHOULD BE BASED ON THE PRIMARY CLINICAL RECORDS. [employer] [facility]. provides no warranty or guarantee of the accuracy or completeness of information in this document.
== END 2023-09-23 11:32 | disposition home or self-care (01) ==
LOC: FBCO 10:29 → FBC 10:31
PROVIDERS: Visit Provider Obstetrics & Gynecology
DX: Z34.93 Encounter for supervision of normal pregnancy, unspecified, third trimester (principal)
CPT/HCPCS: 59025

== ENCOUNTER 2023-09-27 11:10 | Observation (INO) | payer MEDICAID, SELFPAY ==
--- NOTE | 2023-09-27 11:06 | US_ITS ---
[address] [address] Patient Name: ERIKA GRIER MRN: [id number] date: 1990 Sex: F Assigned Patient Location: US Current Patient Location: Accession/Order Number: [id number] Exam Date: 09/27/2023 11:08 Report Date: 09/27/2023 15:54 At the request of: ANN MORENO Procedure: US OB BPP w non-stress EXAMINATION: US OB BPP w non-stress HISTORY: Third trimester Z34.93 COMPARISON: Ultrasound OB biophysical 09/20/2023 TECHNIQUE: Ultrasound biophysical profile was performed in the radiology department. BREATHING MOVEMENTS: 2.0 GROSS BODY MOVEMENTS: 2.0 TONE: 2.0 QUALITATIVE AMNIOTIC FLUID VOLUME: 2.0 PRESENTATION: CEPHALIC HEART RATE: 136.4 bpm bpm. AMNIOTIC FLUID VOLUME: 18.4 cm GESTATIONAL AGE: 35 weeks 3 days CONCLUSION: Total biophysical profile score 8.0. Electronically authenticated by: MANDO DIEZ Date: 09/27/2023 15:54
[2023-09-27 11:29] VITALS: BP 98/66; PULSE 82
[2023-09-27] MEDS: BETAMETHASONE ACE/BETAMETHASONE SOD PHOS 30 MG/5 ML 12 MG IM (12:08)
--- NOTE | 2023-09-27 12:25 | PC.NURSE ---
1110 - Patient states per Dr. Aguayo she is to have steroid injection today. Physician called and order received to administer Betamethasone 12mg/2ml IM once today and return for second dose tomorrow 09/28/23 @ 1130 for second dose. Telephone order read back and confirmed.
--- OUTSIDE RECORDS SUMMARY | 2023-10-13 01:17 | XMS_ITS | CCD ---
Author Name Unknown Address [address] [place] [address] Organization [facility] Care Team Providers Care Activity Director Name Role Phone DO GIGI BARAHONA Attending [...] Name Value Interpretation Reference Range Facil ity Knitter Hand Cytology Reporton 2021 Knitter Hand Cytology Report Clinical Information Specimen Collection Date: 12/03/2021 LMP: NA Type of specimen: Cervical/endocervical HPV testing is being performed at [facility] and will be reported out in the [...] smears in the future. GY Disclaimer Alpha Knitter Hand Disclaimer ANATOMICPATHOLOGY Normal [facility] Comment on above: Performed By: #### G YNCYTREP #### [facility] (DEFAULT) [address] [place] [address] HPV DNAon 12-05-2021 HPV DNA Scrn Negative Normal Negative [facility] Comment on above: Result Comment: The APTIMA [...] of interfering substances. 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 WT. @ 6wk PPV [...] of IBD D: contraception: NFP E: social: [place] son (Maryann); 3 older sisters; close friend [...] Oral, q6 (more content not included)... Normal [facility] TSHon 12-03-2021 TSH Qn 2.36 m[IU]/L Normal 0.45-5.33 [facility] Comment on above: Result Comment: Refe rence Ranges for individuals from to 18 years of age were obtained from The Nichelle Salcedo Handbook (20 ed) published by [facility]. Reference Ranges for Females: Females, 1st Trimester 0.05 ? 3.7 uIU/mL Females, 2nd Trimester 0.31 ? 4.35 uIU/mL Females, 3rd Trimester 0.41 ? 5.18 uIU/mL Performed By: #### C D:[id number] #### [facility] [address] [place] [address] Gynecology Office/Clinic Not edith 05-26-2021 Gynecology Office/Clinic [...] Daily, # 30 packets, 11 Refill(s), Pharmacy: [id number] Medical Decision Making Chronic [...] Gigi Barahona DO 05/26/21 09:03 EDT Normal [facility] Gynecology Office/Clinic Not edith 04-23-2021 Gynecology Office/Clinic [...] ARGUELLO Gigi Samm 04/23/21 08:21 EDT Normal [facility] Inpatient Clinical Summaryon 04-14-2021 [place] [address] [address] Clinical Summary Person Information Name: Erika Barnes Age: 31 Years : 1990 Sex: Female PCP: Dee Hayden DO Marital Status: Phone: PCP: [phone] Race: White Ethnicity: Not or Language: Fijian Visit Id: Visit Reason: IUP Speciality: Acuity: PP Vag Enc Type: Inpatient Med Service: Gynecology-Obstetrics Arrival: 04/11/2021 15:09:36 Discharge: Dispo Type: Address: [address] [place] [address] Diagnosis: 1:Single live ; 2:37 weeks gestation [...] range between ( 27.2 and 40.8 ) [place] Auto: 9.1 % -- Normal range between [...] range between ( 36.0 and 46.0 ) [place] Absolute: 1.0 x10 MCH: 28.6 pg -- [...] have not changed [address] [place], [place] [id number], [phone] ferrous sulfate (ferrous sulfate 325 mg (65 [...] 12:30:00 Confir (more content not included)... Normal [facility] CBC w/ Diffon 04-13-2021 Erythrocyte distribution wid th (RBC) [Ratio] 13.2 % Normal 11.6-14.8 [facility] Comment on above: Performed By: #### C BC ####[address] [address] Hematocrit (Bld) [Volume fraction] 29.3 % Low 36.0-46.0 [facility] Comment on above: Performed By: #### C BC ####[place] [id number] Hemoglobin (Bld) [Mass/Vol] 10.1 g/dL Low 12.0-16. 0 [facility] Comment on above: Performed By: #### C BC ####[place] [id number] MCH (RBC) [Entitic mass] 28.6 pg Normal 27.0-35.0 [facility] Comment on above: Performed By: #### C BC ####[place] [id number] MCHC 34.5 % Normal 31.0-37.0 [facility] Comment on above: Performed By: #### C BC ####[address] [address] MCV (RBC) [Entitic vol] 82.9 fL Normal 80.0-100.0 [facility] Comment on above: Performed By: #### C BC ####[address] [address] Platelet 223 x10*3/mcL Normal 150-350 [facility] Comment on above: Performed By: #### C BC ####[address] [address] Platelet mean volume (Bld) [Entitic vol] 8.4 fL Normal 6.7-10.6 [facility] Comment on above: Performed By: #### C BC ####[address] [address] RBC 3.53 x10*6/mcL Low 3.80-5.20 [facility] Comment on above: Performed By: #### C BC ####[address] [address] WBC 10.6 x10*3/mcL Normal 4.5-11.0 [facility] Comment on above: Performed By: #### C BC ####[address] [address] Diff Autoon 04-13-2021 Baso Absolute 0.0 x10*3/mcL Normal 0.0-0.2 [facility] Comment on above: Performed By: #### C D:[id number] #### [address] [address] Basophils/100 WBC (Bld) 0.4 % Normal 0.0-1.5 [facility] Comment on above: Performed By: #### C D:[id number] #### [address] [address] Eos Absolute 0.1 x10*3/mcL Normal 0.0-0.4 [facility] Comment on above: Performed By: #### C D:[id number] #### [address] [address] Eosinophils/100 WBC (Bld) 0.7 % Normal 0.0-5.4 [facility] Comment on above: Performed By: #### C D:[id number] #### [address] [address] Lymph Absolute 2.2 x10*3/mcL Normal 1.0-4.8 [facility] Comment on above: Performed By: #### C D:[id number] #### [address] [address] Lymphocytes/100 WBC (Bld) 20.4 % Low 27.2-40.8 [facility] Comment on above: Performed By: #### C D:[id number] #### [address] [address] [place] Absolute 1.0 x10*3/mcL Normal 0.1-1.1 [facility] Comment on above: Performed By: #### C D:[id number] #### [address] [address] Monocytes/100 WBC (Bld) 9.1 % Normal 3.7-11.9 B [facility] Comment on above: Performed By: #### C D:[id number] #### [address] [address] Neutro Absolute 7.4 x10*3/mcL Normal 1.8-7.7 [facility] Comment on above: Performed By: #### C D:[id number] #### [address] [address] Neutro Auto 69.4 % Normal 47.2-70.8 [facility] Comment on above: Performed By: #### C D:[id number] #### [address] [address] Progress Note - Genericon Progress Note - Generic Patient: Erika Barnes 636 Age: 31 years Sex: Female : 1990 Associated Diagnoses: 37 weeks gestation of ; Delivery of Author: Kane WILLS, Mena Little Results Review Labor/ Delivery Summary Results Review Problems (Active Problems Only) (SNOMED CT: 048892657, Onset: 07/21/20) Blood group A Rh(D) negative (SNOMED CT: 755248188, Onset: --) test positive (SNOMED CT: 894070131, Onset: --) Alopecia (SNOMED CT: 71449744, Onset: --) Delivery Summary A Membrane Status [...] No Cord Blood Sent to Lab: Yes Group Home Worker: Alexus Maynard Maternal Delivery Complications: None Delivery Physician: Angel Simons MD Attending Physician: Erika Yin DO Information Risk Factors: None Complications: None Nuchal Cord Times: 2 Nuchal Cord Tension: Loose Nuchal Cord Intervention: Reduced prior to delivery Umbilical Cord Description: 3 vessel cord Data Gender: Male ID Band Number: [id number] Outcome: Live Weight: 3.360 kg Score 1 [...] 04/13/2021. Discharge diagnosis: 37 weeks gestation of ([id number].37, Discharge, Medical), Delivery of ([id number] O80, Discharge, Medical). Histories History History (3,0,0,3) # 1 Baby 1 Outcome Date: 08/18/2014 Outcome: Live Outcome or Result: Vaginal, Vacuum Assist Gender: Female Gest Age: 40 weeks Wt: 3941 g Hospital: [facility] Dannie Labor: -- Child's Name: -- Baby's Father: -- Anesthesia Type: Epidural # 2 Baby 1 Outcome Date: 12/01/2016 Outcome: Live Outcome or Result: Vaginal Gender: Female Gest Age: 39 weeks Wt: 2948 g Hospital: [facility] Dannie Labor: -- Child's Name: Martha Baby's [...] by Mena Mitchell 04/13/21 08:41 EDT Normal [facility] Progress Note - Generic Patient: Erika Barnes [...] list: Problems (Active Problems Only) (SNOMED CT: 331771531, Onset: 07/21/20) Blood group A Rh(D) negative (SNOMED CT: 875542902, Onset: --) test positive (SNOMED CT: 139512846, Onset: --) Alopecia (SNOMED CT: 79433637, Onset: --) single live infant Physical Examination [...] by Mena Mitchell 04/13/21 10:41 EDT Normal [facility] ABIDon 04-12-2021 ABID Positive Normal [facility] Comment on above: Performed By: #### C D:[id number] #### [facility] [address] [place] [address] ABO/Rhon 04-12-2021 ABO/Rh ABO/Rh: A NEG Normal [facility] Comment on above: Performed By: #### C D:[id number] #### [facility] [address] [place] [address] ABSC Autoon 04-12-2021 ABSC Auto Positive Normal [facility] Comment on above: Performed By: #### C D:[id number] #### [address] [address] Screenon 04-12-2021 Screen Screen: Negati ve FS Pos Ctl: Positive FS Neg Ctl: Negative Normal [facility] Comment on above: Performed By: #### C D:[id number] #### [address] [address] Obstetrics Progress Noteon 0 04-12-2021 Obstetrics Progress [...] Review: Problems (Active Problems Only) (SNOMED CT: 613682675, Onset: 07/21/20) Blood group A Rh(D) negative (SNOMED CT: 825753033, Onset: --) test positive (SNOMED CT: 630950924, Onset: --) Alopecia (SNOMED CT: 58723901, Onset: --) Delivery Summary A Membrane Status [...] No Cord Blood Sent to Lab: Yes Group Home Worker: Alexus Maynard Maternal Delivery Complications: None Delivery Physician: Angel Simons MD Attending Physician: Erika Yin DO Information Risk Factors: None Complications: None Nuchal Cord Times: 2 Nuchal Cord Tension: Loose Nuchal Cord Intervention: Reduced prior to delivery Umbilical Cord Description: 3 vessel cord Infant Data Gender: Male ID Band Number: [id number] Outcome: Live Weight: 3.360 kg Score 1 Minute: 9 Score 5 Minute: 9 Score 10 Minute: 9 . Impression and Plan Erika is a 31-year-old 4 para 3003 female at 37+ weeks estimated gestational age (EDC 05/17/2021) who presented to the labor and delivery unit of [facility] on 04/11/2021 with the complaint of strong [...] initiated. 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 amniotomy performed for clear [...] Angel Simons MD 04/13/21 06:58 EDT Normal [facility] .Fentanyl Scrn with Conf,Uro n 04-11-2021 Ur Fentanyl Scrn w/Confirm Negative Normal NEG <1.0 [facility] Comment on above: Performed By: #### C D:[id number] #### [address] [address] Ur Fentanyl Scrn w/Confirm Qnt 0.00 ng/mL Normal <=0.9 9 [facility] Comment on above: Performed By: #### C D:[id number] #### [address] [address] CBC w/ Diffon 04-11-2021 Erythrocyte distribution wid th (RBC) [Ratio] 13.4 % Normal 11.6-14.8 [facility] Comment on above: Performed By: #### C D:[id number] #### [address] [address] Hematocrit (Bld) [Volume fraction] 34.2 % Low 36.0-46.0 [facility] Comment on above: Performed By: #### C D:[id number] #### [address] [address] Hemoglobin (Bld) [Mass/Vol] 11.7 g/dL Low 12.0-16. 0 [facility] Comment on above: Performed By: #### C D:[id number] #### [address] [address] MCH (RBC) [Entitic mass] 28.3 pg Normal 27.0-35.0 [facility] Comment on above: Performed By: #### C D:[id number] #### [address] [address] MCHC 34.3 % Normal 31.0-37.0 [facility] Comment on above: Performed By: #### C D:[id number] #### [address] [address] MCV (RBC) [Entitic vol] 82.5 fL Normal 80.0-100.0 B [facility] Comment on above: Performed By: #### C D:[id number] #### [address] [address] Platelet 282 x10*3/mcL Normal 150-350 [facility] Comment on above: Performed By: #### C D:[id number] #### [address] [address] Platelet mean volume (Bld) [Entitic vol] 8.6 fL Normal 6.7-10.6 [facility] Comment on above: Performed By: #### C D:[id number] #### [address] [address] RBC 4.14 x10*6/mcL Normal 3.80-5.20 [facility] Comment on above: Performed By: #### C D:[id number] #### [address] [address] WBC 11.3 x10*3/mcL High 4.5-11.0 [facility] Comment on above: Performed By: #### C D:[id number] #### [address] [address] Diff Autoon 04-11-2021 Baso Absolute 0.0 x10*3/mcL Normal 0.0-0.2 [facility] Comment on above: Performed By: #### . Automated Diff #### [address] [address] Basophils/100 WBC (Bld) 0.4 % Normal 0.0-1.5 B [facility] Comment on above: Performed By: #### . Automated Diff #### [address] [address] Eos Absolute 0.1 x10*3/mcL Normal 0.0-0.4 [facility] Comment on above: Performed By: #### . Automated Diff #### [address] [address] Eosinophils/100 WBC (Bld) 0.5 % Normal 0.0-5.4 [facility] Comment on above: Performed By: #### . Automated Diff #### [address] [address] Lymph Absolute 2.2 x10*3/mcL Normal 1.0-4.8 [facility] Comment on above: Performed By: #### . Automated Diff #### [address] [address] Lymphocytes/100 WBC (Bld) 19.5 % Low 27.2-40.8 [facility] Comment on above: Performed By: #### . Automated Diff #### [address] [address] [place] Absolute 1.1 x10*3/mcL Normal 0.1-1.1 [facility] Comment on above: Performed By: #### . Automated Diff #### [address] [address] Monocytes/100 WBC (Bld) 9.5 % Normal 3.7-11.9 B [facility] Comment on above: Performed By: #### . Automated Diff #### [address] [address] Neutro Absolute 7.9 x10*3/mcL High 1.8-7.7 [facility] Comment on above: Performed By: #### . Automated Diff #### [address] [address] Neutro Auto 70.1 % Normal 47.2-70.8 [facility] Comment on above: Performed By: #### . Automated Diff #### [address] [address] UDS OB/Con 04-11-2021 Creatinine [Mass/Vol] 90.3 mg/dL Normal [facility] Comment on above: Performed By: #### C D:[id number] #### [address] [address] Ur Amph Scrn w/Conf Negative Normal NEG = <1000 [facility] Comment on above: Performed By: #### C D:[id number] #### [address] [address] Ur Yoko Scrn w/Conf Negative Normal NEG = <200 [facility] Comment on above: Performed By: #### C D:[id number] #### [address] [address] Ur Benzodia Scrn w/Conf Negative Normal NEG = <200 B [facility] Comment on above: Performed By: #### C D:[id number] #### [address] [address] Ur Cannab Scrn w/Conf Negative Normal NEG = <50 [facility] Comment on above: Performed By: #### C D:[id number] #### [address] [address] Ur Cocaine Scrn w/Conf Negative Normal NEG = <300 [facility] Comment on above: Performed By: #### C D:[id number] #### [address] [address] Ur Methadone Scrn w/Conf Negative Normal NEG = <300 [facility] Comment on above: Performed By: #### C D:[id number] #### [address] [address] Ur Opiate Scrn w/Conf Negative Normal NEG = <300 [facility] Comment on above: Performed By: #### C D:[id number] #### [address] [address] Ur Oxy Screen w/Conf Negative Normal NEG = <100 [facility] Comment on above: Performed By: #### C D:[id number] #### [address] [address] Ur Oxy Scrn Qnt w/Confirm 4 ng/mL Normal <=99 [facility] Comment on above: Performed By: #### C D:[id number] #### [address] [address] Ur PCP Scrn w/Conf Negative Normal NEG = <25 [facility] Comment on above: Performed By: #### C D:[id number] #### [address] [address] UA pH 7.0 Normal 4.5 - 7.8 [facility] Comment on above: Performed By: #### C D:[id number] #### [address] [address] UA Spec Grav 1.015 Normal 1.003-1.035 [facility] Comment on above: Performed By: #### C D:[id number] #### [address] [address] Fur Drummer [place] Yes Normal [facility] Comment on above: Performed By: #### C D:[id number] #### [address] [address] Ur Buprenorphine Scrn w/Conf Negative Normal NEG = < 10 [facility] Comment on above: Performed By: #### C D:[id number] #### [address] [address] Obstetrics Office/Clinic Not edith 04-09-2021 Obstetrics Office/Clinic Note Billing based on complexity of care not time spent Electronically signed by Gigi Barahona DO 04/10/21 18:35 EDT Normal [facility] Chlam & GC, DNAon 04-02-2021 Chlamydia, DNA Negative Normal Negative [facility] Comment on above: Result Comment: The APTIMA [...] to the clinician. Performed By: #### C D:[id number] #### [place] [address] Gonorrhea, DNA Negative Normal Negative [facility] Comment on above: Result Comment: The APTIMA [...] to the clinician. Performed By: #### C D:[id number] #### [address] [address] Grp B PCRon 03-29-2021 Allergic to Penicillin? Unknown Normal B [facility] Comment on above: Performed By: #### C D:[id number] #### [address] [address] Group B Strep PCR Negative Normal Negative [facility] Comment on above: Result Comment: The [employer] GBS Assay is an automated nucleic acid [...] clindamycin is noted. Performed By: #### C D:[id number] #### [place] [address] Inpatient Clinical Summaryon 03-27-2021 [place] [address] [place] [address] Clinical Summary Person Information Name: Erika Barnes Age: 31 Years : 1990 Sex: Female PCP: Dee Hayden DO Marital Status: Phone: PCP: [phone] Race: White Ethnicity: Not or Language: Fijian Visit Id: Visit Reason: contractions Speciality: Acuity: Ante Enc Type: Outpatient in a Bed Med Service: Gynecology-Obstetrics Arrival: 03/27/2021 17:47:20 Discharge: Dispo Type: Address: [address] [place] [address] Diagnosis: Discharged To: Home Treatments: Devices/Equipment: Professional [...] OB Non Stress Test [facility] [place] 04/29/2021 13:00:00 04/29/2021 13:45:00 Confirmed Ultrasound Visit 40 [facility] [place] 04/29/2021 13:30:00 04/29/2021 14:10:00 Confirmed OB Visit - Established [facility] [place] 04/29/2021 14:15:00 04/29/2021 14:30:00 Confirmed SP Established Patient Visit 15 [facility] - [place] 05/12/2021 10:00:00 05/12/2021 10:15:00 Confirmed Normal [facility] Progress Note-Nurseon 06-03- 2021 Progress Note-Nurse Patient: [...] mmHg Cardiovascular Symptoms None Nail Bed Color [place] Present No Capillary Refill Less than [...] of Spe (more content not included)... Normal [facility] OB Follow Upon 03-06-2021 OB Follow Up [...] Electronically Signed in Other Vendor System) Normal [facility] Obstetrics Office/Clinic Not edith 03-05-2021 Obstetrics Office/Clinic Note Billing dictated by medical decision yvonne ing, complexity of care ... Not time spent with patient Electronically signed by Gigi Barahona DO 03/05/21 14:15 EDT Normal [facility] ABSC Autoon 02-18-2021 ABSC Auto Negative Normal [facility] Comment on above: Performed By: #### C D:[id number] #### [address] [address] Rh Onlyon 02-18-2021 Rh Only Negative Normal [facility] Comment on above: Performed By: #### C D:[id number] #### [address] [address] RhIG Requeston 02-18-2021 RhIG Request History Check: Done RhIg Request Reason: Normal [facility] Comment on above: Performed By: #### R ELVIRA ####[address] [address] CBCon 02-05-2021 Erythrocyte distribution wid th (RBC) [Ratio] 13.4 % Normal 11.6-14.8 [facility] Comment on above: Performed By: #### C BCI #### [address] [address] Hematocrit (Bld) [Volume fraction] 37.1 % Normal 36.0-46.0 [facility] Comment on above: Performed By: #### C BCI #### [address] [address] Hemoglobin (Bld) [Mass/Vol] 12.5 g/dL Normal 12.0-16. 0 [facility] Comment on above: Performed By: #### C BCI #### [address] [address] MCH (RBC) [Entitic mass] 31.2 pg Normal 27.0-35.0 [facility] Comment on above: Performed By: #### C BCI #### [address] [address] MCHC 33.8 % Normal 31.0-37.0 [facility] Comment on above: Performed By: #### C BCI #### [address] [address] MCV (RBC) [Entitic vol] 92.3 fL Normal 80.0-100.0 B [facility] Comment on above: Performed By: #### C BCI #### [address] [address] Platelet 250 x10*3/mcL Normal 150-350 [facility] Comment on above: Performed By: #### C BCI #### [address] [address] Platelet mean volume (Bld) [Entitic vol] 8.5 fL Normal 6.7-10.6 [facility] Comment on above: Performed By: #### C BCI #### [address] [address] RBC 4.02 x10*6/mcL Normal 3.80-5.20 [facility] Comment on above: Performed By: #### C BCI #### [address] [address] WBC 8.7 x10*3/mcL Normal 4.5-11.0 [facility] Comment on above: Performed By: #### C BCI #### [address] [address] Gest Diab Scn (ACOG)on 02-05 History of diabetes or gastric bypass? No Normal [facility] Comment on above: Performed By: #### C D:[id number] #### [address] [address] Glucose [Mass/Vol] 70 mg/dL Normal 70-134 [facility] Comment on above: Result Comment: Acco rding to the ADA, a glucose threshold of > 139 mg/dL after a 50-gram load identifies approximately 80% of women with gestational diabetes mellitus, while the sensitivity is further increased to approximately 90% by a threshold of >129 mg/dL. Performed By: #### C D:[id number] #### [place] [address] [place] [address] HIV1/2 Ab,Ag Scnon 1 HIV-1/2 Ab,Ag 0.12 Normal [facility] Comment on above: Performed By: #### C D:[id number] #### [address] [place] [address] HIV-1/2 Ab,Ag Interp Normal Negative [facility] Comment on above: Result Comment: N egative Negative Performed By: #### C D:[id number] #### [address] [address] Obstetrics Office/Clinic Not edith 02-05-2021 Obstetrics Office/Clinic Note I personally spent 41 minutes caring for patient today Electronically signed by Gigi Barahona DO 02/05/21 08:45 EDT Normal [facility] US OB > 14 Weekson 1 OB [...] Electronically Signed in Other Vendor System) Normal [facility] Encounters Encounter Date Encounter Type Care Provider Facility Start: 10-05-2023 End: 10-05-2023 ambulatory ARTHUR GALLARDO Not Available Start: 09-21-2023 End: 09-21-2023 ambulatory ANN MORENO Not Available Start: 10-10-2022 End: 10-10-2022 ambulatory Josh Cody Other [employer] Other Start: 10-10-2022 Telephone encounter [facility] Start: 12-03-2021 End: 12-04-2021 ambulatory DO [facility] Facility:[facility] Start: 02-18-2021 End: 02-18-2021 ambulatory DO [facility] Facility:[facility] Payers Date Payer Category Payer Medicaid [id number] 2021 Unknown 1990 Unknown [id number] 2.16. [id number] 1990 Unknown [id number] 2.16. [id number] 1990 Unknown [id number] 1990 Unknown [id number] Unknown [id number] 2.1 [id number] Social History Date Type Detail Facility Unknown if ever smoked [employer] Other Sex Assigned At Sex Assigned At Bir th [employer] 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 Resources ?Your cardiac rehabilitation program and local hospital or clinic ?[employer] Cardiovascular and Pulmonary [employer] www.aacvpr.org ?[place] Diabetes Association [phone] www.diabetes.org ?[place] Heart Association [phone] heart.org ?Your Guide to Lowering Your Blood Pressure with DASH?www.nhlbi.nih.gov/health/publi c/heart/hbp/dash ?National Heart, Lung, and Blood [place] [phone] www.nhlbi.nih.org ?WomenHeart: The National Coalition for Women with Heart Disease [phone] www.womenheart.org ?The member services department of your health insurance plan ?The medical benefits department, human resources department, or wellness center at your workplace ?An Internet or library search on heart disease, cardiovascular disease, coronary artery disease, peripheral artery disease, or stroke ? 7768-[address] [employer] [place] [address]. All rights reserved. This information is not [...] breast self-examination (BSE). These experts include the [place] [employer] and the [place] Congress of Obstetricians and Gynecologists. Some experts [...] This means they are not cancer. ? 9645-4262 [employer]. [address] [place] [address]. All rights reserved. This information is not [...] (mg) per serving (more content not included)... 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 Repeat 5 times. ? 2241-5381 [employer]. [address] [place] [address], [place] [address]. All rights reserved. This information is not intended as a substitute for professional medical care. Always follow your healthcare professional's instructions. [facility] 04-16-2021 Note Patient Education Ma terials Name: [...] drainage, or bleeding from your incision. ? 8839-2863 [employer]. [address] [place], [place] [id number]. All rights reserved. This information is not intended as a substitute for professional medical care. Always follow your healthcare professional's instructions. [facility] 04-11-2021 Note Chief Complaint R/O Labor History of Present Illness Erika is a 31-year-old 4 para 3003 female at 37 weeks 5 days EGA (EDC 05/17/2021) who presented to the labor and delivery unit of [facility] on 04/11/2021 with the complaint of frequent [...] Auto 19.5 % (Low) 04/11/2021 18:41 EDT [place] Auto 9.5 % 04/11/2021 18:41 EDT Eos Auto 0.5 % 04/11/2021 18:41 EDT Basophil Auto 0.4 % 04/11/2021 18:41 EDT Neutro Absolute 7.9 x10 Lymph Absolute 2.2 x10 [place] Absolute 1.1 x10 Eos Absolute 0.1 x10 [...] Scrn w/Conf Negative (more content not included)... 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 5891-[address] [employer] [place] [address]. All rights reserved. This information is not intended as a substitute for professional medical care. Always follow your healthcare professional's instructions. 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 ? 2811-1173 [employer]. [address] [place] [address]. All rights reserved. This information is not intended as a substitute for professional medical care. Always follow your healthcare professional's instructions. 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 ? 4102-7446 [employer]. [address] [place] [address], [place] [address]. All rights reserved. This information is not intended as a substitute for professional medical care. Always follow your healthcare professional's instructions. 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 ? 0463-8911 [employer]. [address] [place] [address]. All rights reserved. This information is not intended as a substitute for professional medical care. Always follow your healthcare professional's instructions. [facility] 01-29-2021 Note Patient Education Ma terials Name: [...] felt your baby move all day. ? 0742-6891 [employer]. [address] [place] [address]. All rights reserved. This information is not intended as a substitute for professional medical care. Always follow your healthcare professional's instructions. 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 Yes. Nail turks and ca[place] islander is not thought to be dangerous during . Just be careful about breathing the fumes. Keep windows open or use a fan. However, long-term exposure to the solvents used to remove nail turks [place] ca[place] islander may not be safe. If you work [...] been lifting weights, don?t start now. ? 2110-6191 [employer]. [address] [place] [address]. All rights reserved. This information is not intended as a substitute for professional medical care. Always follow your healthcare professional's instructions. 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 No prescription or [id number] medicine is safe for everyone all of [...] bring the load nearer. ?Get a good tractor drill operator. Test the weight of the load. ?Tighten [...] healthcare provider before taking any medicines. ? 1626-8330 [employer]. [address] [place] [address], [place] [address]. All rights reserved. This information is not intended as a substitute for professional medical care. Always follow your healthcare professional's instructions. [facility] Evaluation note No Information [facility] [employer] Other Summary Purpose Family History No Family History Records FoundNo Family History Records Found Advance Directives No Advanced Directives Records FoundNo Advanced Directives Records Found Additional Source Comments INFORMATION SOURCE (unrecogn ized section and content) DATE CREATED AUTHOR 12/06/2021 [facility] DATE CREATED AUTHOR AUTHOR'S ORGANIZ ATION 10/07/2023 [facility] REASON FOR VISIT (unrecogniz ed section [...] BE BASED ON THE PRIMARY CLINICAL RECORDS. [facility]. provides no warranty or guarantee of the accuracy or completeness of information in this document.
--- OUTSIDE RECORDS SUMMARY | 2023-10-13 01:20 | XMS_ITS | CCD ---
Author Name Unknown Address [address] [place] [address] Organization [facility] Care Team Providers Care Marketing Project Manager Name Role Phone DO GIGI BARAHONA Attending [...] Name Value Interpretation Reference Range Facil ity Manufacturing Area Manager Cytology Reporton 2021 Manufacturing Area Manager Cytology Report Clinical Information Specimen Collection Date: 12/03/2021 LMP: NA Type of specimen: Cervical/endocervical HPV testing is being performed at [facility] and will be reported out in the [...] smears in the future. GY Disclaimer Alpha Manufacturing Area Manager Disclaimer ANATOMICPATHOLOGY Normal [facility] Comment on above: Performed By: #### G YNCYTREP #### [facility] (DEFAULT) [address] [place] [address] HPV DNAon 12-05-2021 HPV DNA Scrn Negative Normal Negative [facility] Comment on above: Result Comment: The APTIMA [...] of interfering substances. Performed By: #### C [id number] #### [facility] [address] [place] [address] Gynecology Office/Clinic Not edith 12-03-2021 Gynecology Office/Clinic Note Chief Complaint 31YO Annual [employer] Exam & Pap. WT. @ 6wk PPV [...] of IBD D: contraception: NFP E: social: [place] son (Maryann); 3 older sisters; close friend [...] Oral, q6 (more content not included)... Normal [facility] TSHon 12-03-2021 TSH Qn 2.36 m[IU]/L Normal 0.45-5.33 [facility] Comment on above: Result Comment: Refe rence Ranges for individuals from to 18 years of age were obtained from The Nichelle Salcedo Handbook (20 ed) published by [facility]. Reference Ranges for Females: Females, 1st Trimester 0.05 ? 3.7 uIU/mL Females, 2nd Trimester 0.31 ? 4.35 uIU/mL Females, 3rd Trimester 0.41 ? 5.18 uIU/mL Performed By: #### C [id number] #### [facility] [address] [place] [address] Gynecology Office/Clinic Not edith 05-26-2021 Gynecology Office/Clinic [...] Daily, # 30 packets, 11 Refill(s), Pharmacy: [id number] Medical Decision Making Chronic [...] Gigi Barahona DO 05/26/21 09:03 EDT Normal [facility] Gynecology Office/Clinic Not edith 04-23-2021 Gynecology [...] ARGUELLO Gigi Samm 04/23/21 08:21 EDT Normal [facility] Inpatient Clinical Summaryon 04-14-2021 Inpatient [place] [address] [address] Clinical Summary Person Information Name: Erika Barnes Age: 31 Years : 1990 Sex: Female PCP: Dee Hayden DO Marital Status: Phone: PCP: [phone] Race: White Ethnicity: Not or Language: Indian Visit Id: Visit Reason: IUP Speciality: Acuity: PP Vag Enc Type: Inpatient Med Service: Gynecology-Obstetrics Arrival: 04/11/2021 15:09:36 Discharge: Dispo Type: Address: [address] [place] [address] Diagnosis: 1:Single live ; 2:37 weeks gestation [...] range between ( 27.2 and 40.8 ) Gilchrist Auto: 9.1 % -- Normal range between [...] range between ( 36.0 and 46.0 ) Gilchrist Absolute: 1.0 x10 MCH: 28.6 pg -- [...] have not changed [address] [place], [place] [id number], [phone] ferrous sulfate (ferrous sulfate 325 mg (65 [...] 12:30:00 Confir (more content not included)... Normal [facility] CBC w/ Diffon 04-13-2021 Erythrocyte distribution wid th (RBC) [Ratio] 13.2 % Normal 11.6-14.8 [facility] Comment on above: Performed By: #### C BC ####[address] [address] Hematocrit (Bld) [Volume fraction] 29.3 % Low 36.0-46.0 [facility] Comment on above: Performed By: #### C BC ####[place] [id number] Hemoglobin (Bld) [Mass/Vol] 10.1 g/dL Low 12.0-16. 0 [facility] Comment on above: Performed By: #### C BC ####[place] [id number] MCH (RBC) [Entitic mass] 28.6 pg Normal 27.0-35.0 [facility] Comment on above: Performed By: #### C BC ####[place] [address] MCHC 34.5 % Normal 31.0-37.0 [facility] Comment on above: Performed By: #### C BC ####[address] [address] MCV (RBC) [Entitic vol] 82.9 fL Normal 80.0-100.0 [facility] Comment on above: Performed By: #### C BC ####[address] [address] Platelet 223 x10*3/mcL Normal 150-350 [facility] Comment on above: Performed By: #### C BC ####[address] [address] Platelet mean volume (Bld) [Entitic vol] 8.4 fL Normal 6.7-10.6 [facility] Comment on above: Performed By: #### C BC ####[address] [address] RBC 3.53 x10*6/mcL Low 3.80-5.20 [facility] Comment on above: Performed By: #### C BC ####[address] [address] WBC 10.6 x10*3/mcL Normal 4.5-11.0 [facility] Comment on above: Performed By: #### C BC ####[address] [address] Diff Autoon 04-13-2021 Baso Absolute 0.0 x10*3/mcL Normal 0.0-0.2 [facility] Comment on above: Performed By: #### C D:[id number] #### [address] [address] Basophils/100 WBC (Bld) 0.4 % Normal 0.0-1.5 [facility] Comment on above: Performed By: #### C D:[id number] #### [address] [address] Eos Absolute 0.1 x10*3/mcL Normal 0.0-0.4 [facility] Comment on above: Performed By: #### C D:[id number] #### [address] [address] Eosinophils/100 WBC (Bld) 0.7 % Normal 0.0-5.4 [facility] Comment on above: Performed By: #### C D:[id number] #### [address] [address] Lymph Absolute 2.2 x10*3/mcL Normal 1.0-4.8 [facility] Comment on above: Performed By: #### C D:[id number] #### [address] [address] Lymphocytes/100 WBC (Bld) 20.4 % Low 27.2-40.8 [facility] Comment on above: Performed By: #### C D:[id number] #### [address] [address] Gilchrist Absolute 1.0 x10*3/mcL Normal 0.1-1.1 [facility] Comment on above: Performed By: #### C D:[id number] #### [address] [address] Monocytes/100 WBC (Bld) 9.1 % Normal 3.7-11.9 B [facility] Comment on above: Performed By: #### C [id number] #### [address] [address] Neutro Absolute 7.4 x10*3/mcL Normal 1.8-7.7 [facility] Comment on above: Performed By: #### C D:[id number] #### [address] [address] Neutro Auto 69.4 % Normal 47.2-70.8 [facility] Comment on above: Performed By: #### C D:[id number] #### [address] [address] Progress Note - Genericon Progress Note - Generic Patient: Erika Barnes 636 Age: 31 years Sex: Female : 1990 Associated Diagnoses: 37 weeks gestation of ; Delivery of Author: Kane WILLS, Mena Little Results Review Labor/ Delivery Summary Results Review Problems (Active Problems Only) (SNOMED CT: 692185025, Onset: 07/21/20) Blood group A Rh(D) negative (SNOMED CT: 114985126, Onset: --) test positive (SNOMED CT: 945324671, Onset: --) Alopecia (SNOMED CT: 82208550, Onset: --) Delivery Summary A Membrane Status [...] No Cord Blood Sent to Lab: Yes Ct Technologist: Alexus Maynard Maternal Delivery Complications: None Delivery Physician: Angel Simons MD Attending Physician: Erika Yin DO Information Risk Factors: None Complications: None Nuchal Cord Times: 2 Nuchal Cord Tension: Loose Nuchal Cord Intervention: Reduced prior to delivery Umbilical Cord Description: 3 vessel cord Data Gender: Male ID Band Number: [id number] Outcome: Live Weight: 3.360 kg Score 1 [...] 04/13/2021. Discharge diagnosis: 37 weeks gestation of ([id number] Z3A.37, Discharge, Medical), Delivery of ([id number], Discharge, Medical). Histories History History (3,0,0,3) # 1 Baby 1 Outcome Date: 08/18/2014 Outcome: Live Outcome or Result: Vaginal, Vacuum Assist Gender: Female Gest Age: 40 weeks Wt: 3941 g Hospital: [facility] Dannie Labor: -- Child's Name: -- Baby's Father: -- Anesthesia Type: Epidural # 2 Baby 1 Outcome Date: 12/01/2016 Outcome: Live Outcome or Result: Vaginal Gender: Female Gest Age: 39 weeks Wt: 2948 g Hospital: [facility] Dannie Labor: -- Child's Name: Martha Baby's [...] by Mena Mitchell 04/13/21 08:41 EDT Normal [facility] Progress Note - Generic Patient: Erika [...] list: Problems (Active Problems Only) (SNOMED CT: 687689331, Onset: 07/21/20) Blood group A Rh(D) negative (SNOMED CT: 888215340, Onset: --) test positive (SNOMED CT: 043863868, Onset: --) Alopecia (SNOMED CT: 53015396, Onset: --) single live infant Physical Examination [...] by Mena Mitchell 04/13/21 10:41 EDT Normal [facility] ABIDon 04-12-2021 ABID Positive Normal [facility] Comment on above: Performed By: #### C D:[id number] #### [facility] [address] [place] [address] ABO/Rhon 04-12-2021 ABO/Rh ABO/Rh: A NEG Normal [facility] Comment on above: Performed By: #### C D:[id number] #### [facility] [address] [place] [address] ABSC Autoon 04-12-2021 ABSC Auto Positive Normal [facility] Comment on above: Performed By: #### C D:[id number] #### [address] [address] Screenon 04-12-2021 Screen Screen: Negati ve FS Pos Ctl: Positive FS Neg Ctl: Negative Normal [facility] Comment on above: Performed By: #### C D:[id number] #### [address] [address] Obstetrics Progress Noteon 0 04-12-2021 Obstetrics Progress [...] Review: Problems (Active Problems Only) (SNOMED CT: 968520684, Onset: 07/21/20) Blood group A Rh(D) negative (SNOMED CT: 307840831, Onset: --) test positive (SNOMED CT: 418684436, Onset: --) Alopecia (SNOMED CT: 27589997, Onset: --) Delivery Summary A Membrane Status [...] No Cord Blood Sent to Lab: Yes Ct Technologist: Alexus Maynard Maternal Delivery Complications: None Delivery Physician: Angel Simons MD Attending Physician: Erika Yin DO Information Risk Factors: None Complications: None Nuchal Cord Times: 2 Nuchal Cord Tension: Loose Nuchal Cord Intervention: Reduced prior to delivery Umbilical Cord Description: 3 vessel cord Infant Data Gender: Male ID Band Number: [id number] Outcome: Live Weight: 3.360 kg Score 1 Minute: 9 Score 5 Minute: 9 Score 10 Minute: 9 . Impression and Plan Erika is a 31-year-old 4 para 3003 female at 37+ weeks estimated gestational age (EDC 05/17/2021) who presented to the labor and delivery unit of [facility] on 04/11/2021 with the complaint of strong [...] initiated. Contractions persisted and in the very disaster director hours of 04/12/2021 amniotomy performed for clear [...] Angel Simons MD 04/13/21 06:58 EDT Normal [facility] .Fentanyl Scrn with Conf,Uro n 04-11-2021 Ur Fentanyl Scrn w/Confirm Negative Normal NEG <1.0 [facility] Comment on above: Performed By: #### C D:[id number] #### [address] [address] Ur Fentanyl Scrn w/Confirm Qnt 0.00 ng/mL Normal <=0.9 9 [facility] Comment on above: Performed By: #### C D:[id number] #### [address] [address] CBC w/ Diffon 04-11-2021 Erythrocyte distribution wid th (RBC) [Ratio] 13.4 % Normal 11.6-14.8 [facility] Comment on above: Performed By: #### C D:[id number] #### [address] [address] Hematocrit (Bld) [Volume fraction] 34.2 % Low 36.0-46.0 [facility] Comment on above: Performed By: #### C D:[id number] #### [address] [address] Hemoglobin (Bld) [Mass/Vol] 11.7 g/dL Low 12.0-16. 0 [facility] Comment on above: Performed By: #### C D:[id number] #### [address] [address] MCH (RBC) [Entitic mass] 28.3 pg Normal 27.0-35.0 [facility] Comment on above: Performed By: #### C D:[id number] #### [address] [address] MCHC 34.3 % Normal 31.0-37.0 [facility] Comment on above: Performed By: #### C D:[id number] #### [address] [address] MCV (RBC) [Entitic vol] 82.5 fL Normal 80.0-100.0 B [facility] Comment on above: Performed By: #### C D:[id number] #### [address] [address] Platelet 282 x10*3/mcL Normal 150-350 [facility] Comment on above: Performed By: #### C D:[id number] #### [address] [address] Platelet mean volume (Bld) [Entitic vol] 8.6 fL Normal 6.7-10.6 [facility] Comment on above: Performed By: #### C D:[id number] #### [address] [address] RBC 4.14 x10*6/mcL Normal 3.80-5.20 [facility] Comment on above: Performed By: #### C D:[id number] #### [address] [address] WBC 11.3 x10*3/mcL High 4.5-11.0 [facility] Comment on above: Performed By: #### C D:[id number] #### [address] [address] Diff Autoon 04-11-2021 Baso Absolute 0.0 x10*3/mcL Normal 0.0-0.2 [facility] Comment on above: Performed By: #### . Automated Diff #### [address] [address] Basophils/100 WBC (Bld) 0.4 % Normal 0.0-1.5 B [facility] Comment on above: Performed By: #### . Automated Diff #### [address] [address] Eos Absolute 0.1 x10*3/mcL Normal 0.0-0.4 [facility] Comment on above: Performed By: #### . Automated Diff #### [address] [address] Eosinophils/100 WBC (Bld) 0.5 % Normal 0.0-5.4 [facility] Comment on above: Performed By: #### . Automated Diff #### [address] [address] Lymph Absolute 2.2 x10*3/mcL Normal 1.0-4.8 [facility] Comment on above: Performed By: #### . Automated Diff #### [address] [address] Lymphocytes/100 WBC (Bld) 19.5 % Low 27.2-40.8 [facility] Comment on above: Performed By: #### . Automated Diff #### [address] [address] Gilchrist Absolute 1.1 x10*3/mcL Normal 0.1-1.1 [facility] Comment on above: Performed By: #### . Automated Diff #### [address] [address] Monocytes/100 WBC (Bld) 9.5 % Normal 3.7-11.9 B [facility] Comment on above: Performed By: #### . Automated Diff #### [address] [address] Neutro Absolute 7.9 x10*3/mcL High 1.8-7.7 [facility] Comment on above: Performed By: #### . Automated Diff #### [address] [address] Neutro Auto 70.1 % Normal 47.2-70.8 [facility] Comment on above: Performed By: #### . Automated Diff #### [address] [address] UDS OB/Con 04-11-2021 Creatinine [Mass/Vol] 90.3 mg/dL Normal [facility] Comment on above: Performed By: #### C D:[id number] #### [address] [address] Ur Amph Scrn w/Conf Negative Normal NEG = <1000 [facility] Comment on above: Performed By: #### C D:[id number] #### [address] [address] Ur Yoko Scrn w/Conf Negative Normal NEG = <200 [facility] Comment on above: Performed By: #### C D:[id number] #### [address] [address] Ur Benzodia Scrn w/Conf Negative Normal NEG = <200 B [facility] Comment on above: Performed By: #### C D:[id number] #### [address] [address] Ur Cannab Scrn w/Conf Negative Normal NEG = <50 [facility] Comment on above: Performed By: #### C D:[id number] #### [address] [address] Ur Cocaine Scrn w/Conf Negative Normal NEG = <300 [facility] Comment on above: Performed By: #### C D:[id number] #### [address] [address] Ur Methadone Scrn w/Conf Negative Normal NEG = <300 [facility] Comment on above: Performed By: #### C D:[id number] #### [address] [address] Ur Opiate Scrn w/Conf Negative Normal NEG = <300 [facility] Comment on above: Performed By: #### C D:[id number] #### [address] [address] Ur Oxy Screen w/Conf Negative Normal NEG = <100 [facility] Comment on above: Performed By: #### C D:[id number] #### [address] [address] Ur Oxy Scrn Qnt w/Confirm 4 ng/mL Normal <=99 [facility] Comment on above: Performed By: #### C D:[id number] #### [address] [address] Ur PCP Scrn w/Conf Negative Normal NEG = <25 [facility] Comment on above: Performed By: #### C D:[id number] #### [address] [address] UA pH 7.0 Normal 4.5 - 7.8 [facility] Comment on above: Performed By: #### C D:[id number] #### [address] [address] UA Spec Grav 1.015 Normal 1.003-1.035 [facility] Comment on above: Performed By: #### C D:[id number] #### [address] [address] [employer] [place] Yes Normal [facility] Comment on above: Performed By: #### C D:[id number] #### [address] [address] Ur Buprenorphine Scrn w/Conf Negative Normal NEG = < 10 [facility] Comment on above: Performed By: #### C D:[id number] #### [address] [address] Obstetrics Office/Clinic Not edith 04-09-2021 Obstetrics Office/Clinic Note Billing based on complexity of care not time spent Electronically signed by Gigi Barahona DO 04/10/21 18:35 EDT Normal [facility] Chlam & GC, DNAon 04-02-2021 Chlamydia, DNA Negative Normal Negative [facility] Comment on above: Result Comment: The [...] to the clinician. Performed By: #### C D:[id number] #### [place] [address] Gonorrhea, DNA Negative Normal Negative [facility] Comment on above: Result Comment: The [...] to the clinician. Performed By: #### C D:[id number] #### [address] [address] Grp B PCRon 03-29-2021 Allergic to Penicillin? Unknown Normal B [facility] Comment on above: Performed By: #### C D:[id number] #### [address] [address] Group B Strep PCR Negative Normal Negative [facility] Comment on above: Result Comment: The [employer] GBS Assay is an automated nucleic acid [...] clindamycin is noted. Performed By: #### C D:[id number] #### [place] [address] Inpatient Clinical Summaryon 03-27-2021 Inpatient [place] [address] [place] [address] Clinical Summary Person Information Name: Erika Barnes Age: 31 Years : 1990 Sex: Female PCP: Dee Hayden DO Marital Status: Phone: PCP: [phone] Race: White Ethnicity: Not or Language: Indian Visit Id: Visit Reason: contractions Speciality: Acuity: Ante Enc Type: Outpatient in a Bed Med Service: Gynecology-Obstetrics Arrival: 03/27/2021 17:47:20 Discharge: Dispo Type: Address: [address] [place] [address] Diagnosis: Discharged To: Home Treatments: Devices/Equipment: Professional [...] [place] 05/12/2021 10:00:00 05/12/2021 10:15:00 Confirmed Normal [facility] Progress Note-Nurseon 06-03- 2021 Progress Note-Nurse Patient: [...] mmHg Cardiovascular Symptoms None Nail Bed Color [place] [employer] Present No Capillary Refill Less than [...] of Spe (more content not included)... Normal [facility] OB Follow Upon 03-06-2021 OB Follow Up [...] Electronically Signed in Other Vendor System) Normal [facility] Obstetrics Office/Clinic Not edith 03-05-2021 Obstetrics Office/Clinic Note Billing dictated by medical decision yvonne ing, complexity of care ... Not time spent with patient Electronically signed by Gigi Barahona DO 03/05/21 14:15 EDT Normal [facility] ABSC Autoon 02-18-2021 ABSC Auto Negative Normal [facility] Comment on above: Performed By: #### C D:[id number] #### [address] [address] Rh Onlyon 02-18-2021 Rh Only Negative Normal [facility] Comment on above: Performed By: #### C D:[id number] #### [address] [address] RhIG Requeston 02-18-2021 RhIG Request History Check: Done RhIg Request Reason: Normal [facility] Comment on above: Performed By: #### R ELVIRA ####[address] [address] CBCon 02-05-2021 Erythrocyte distribution wid th (RBC) [Ratio] 13.4 % Normal 11.6-14.8 [facility] Comment on above: Performed By: #### C BCI #### [address] [address] Hematocrit (Bld) [Volume fraction] 37.1 % Normal 36.0-46.0 [facility] Comment on above: Performed By: #### C BCI #### [address] [address] Hemoglobin (Bld) [Mass/Vol] 12.5 g/dL Normal 12.0-16. 0 [facility] Comment on above: Performed By: #### C BCI #### [address] [address] MCH (RBC) [Entitic mass] 31.2 pg Normal 27.0-35.0 [facility] Comment on above: Performed By: #### C BCI #### [address] [address] MCHC 33.8 % Normal 31.0-37.0 [facility] Comment on above: Performed By: #### C BCI #### [address] [address] MCV (RBC) [Entitic vol] 92.3 fL Normal 80.0-100.0 B [facility] Comment on above: Performed By: #### C BCI #### [address] [address] Platelet 250 x10*3/mcL Normal 150-350 [facility] Comment on above: Performed By: #### C BCI #### [address] [address] Platelet mean volume (Bld) [Entitic vol] 8.5 fL Normal 6.7-10.6 [facility] Comment on above: Performed By: #### C BCI #### [address] [address] RBC 4.02 x10*6/mcL Normal 3.80-5.20 [facility] Comment on above: Performed By: #### C BCI #### [address] [address] WBC 8.7 x10*3/mcL Normal 4.5-11.0 [facility] Comment on above: Performed By: #### C BCI #### [address] [address] Gest Diab Scn (ACOG)on 02-05 History of diabetes or gastric bypass? No Normal [facility] Comment on above: Performed By: #### C D:[id number] #### [address] [address] Glucose [Mass/Vol] 70 mg/dL Normal 70-134 [facility] Comment on above: Result Comment: Acco rding to the ADA, a glucose threshold of > 139 mg/dL after a 50-gram load identifies approximately 80% of women with gestational diabetes mellitus, while the sensitivity is further increased to approximately 90% by a threshold of >129 mg/dL. Performed By: #### C D:[id number] #### [place] [address] [place] [address] HIV1/2 Ab,Ag Scnon 1 HIV-1/2 Ab,Ag 0.12 Normal [facility] Comment on above: Performed By: #### C D:[id number] #### [address] [place] [address] HIV-1/2 Ab,Ag Interp Normal Negative [facility] Comment on above: Result Comment: N egative Negative Performed By: #### C D:[id number] #### [address] [address] Obstetrics Office/Clinic Not edith 02-05-2021 Obstetrics Office/Clinic Note I personally spent 41 minutes caring for patient today Electronically signed by Gigi Barahona DO 02/05/21 08:45 EDT Normal [facility] US OB > 14 Weekson 1 [...] Electronically Signed in Other Vendor System) Normal [facility] Encounters Encounter Date Encounter Type Care Provider Facility Start: 10-05-2023 End: 10-05-2023 ambulatory ARTHUR GALLARDO Not Available Start: 09-21-2023 End: 09-21-2023 ambulatory ANN MORENO Not Available Start: 10-10-2022 End: 10-10-2022 ambulatory Josh Cody Other [employer] Other Start: 10-10-2022 Telephone encounter [facility] Start: 12-03-2021 End: 12-04-2021 ambulatory DO [facility] Facility:[facility] Start: 02-18-2021 End: 02-18-2021 ambulatory DO [facility] Facility:[facility] Payers Date Payer Category Payer Medicaid [id number] 2021 Unknown 1990 Unknown [id number] 2.16. [id number] 1990 Unknown [id number] 2.16. 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 Resources ?Your cardiac rehabilitation program and local hospital or clinic ?[place] [employer] Pulmonary [employer] www.aacvpr.org ?[place] [employer] [phone] www.diabetes.org ?[place] [employer] [phone] heart.org ?Your Guide to Lowering Your Blood Pressure with DASH?www.nhlbi.nih.gov/health/publi c/heart/hbp/dash ?National Heart, Lung, and Blood [place] [phone] www.nhlbi.nih.org ?WomenHeart: The National Coalition for Women with Heart Disease [phone] [email or web address] ?The member services department of your health insurance plan ?The medical benefits department, human resources department, or wellness center at your workplace ?An Internet or library search on heart disease, cardiovascular disease, coronary artery disease, peripheral artery disease, or stroke ? 6852-6736 [employer]. [address] [place] [address]. All rights reserved. This information is not [...] breast self-examination (BSE). These experts include the [employer] and the [place] [employer]. Some experts [...] This means they are not cancer. ? 4715-7001 [employer]. [address] [place] [address]. All rights reserved. This information is not [...] (mg) per serving (more content not included)... 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 Repeat 5 times. ? 2629-7674 [employer]. [address] [place] [address], [place] [address]. All rights reserved. This information is not intended as a substitute for professional medical care. Always follow your healthcare professional's instructions. [facility] 04-16-2021 Note Patient Education Ma terials [...] drainage, or bleeding from your incision. ? 3001-8300 [employer]. [address] [place], [place] [id number]. All rights reserved. This information is not intended as a substitute for professional medical care. Always follow your healthcare professional's instructions. [facility] 04-11-2021 Note Chief Complaint R/O Labor History of Present Illness Erika is a 31-year-old 4 para 3003 female at 37 weeks 5 days EGA (EDC 05/17/2021) who presented to the labor and delivery unit of [facility] on 04/11/2021 with the complaint of frequent [...] Auto 19.5 % (Low) 04/11/2021 18:41 EDT Gilchrist Auto 9.5 % 04/11/2021 18:41 EDT Eos Auto 0.5 % 04/11/2021 18:41 EDT Basophil Auto 0.4 % 04/11/2021 18:41 EDT Neutro Absolute 7.9 x10 Lymph Absolute 2.2 x10 Gilchrist Absolute 1.1 x10 Eos Absolute 0.1 x10 [...] Scrn w/Conf Negative (more content not included)... 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 7910-[address] [employer] [place] [address]. All rights reserved. This information is not intended as a substitute for professional medical care. Always follow your healthcare professional's instructions. 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 ? 2590-9310 [employer]. [address] [place] [address]. All rights reserved. This information is not intended as a substitute for professional medical care. Always follow your healthcare professional's instructions. 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 ? 7764-2214 [employer]. [address] [place] [address], [place] [address]. All rights reserved. This information is not intended as a substitute for professional medical care. Always follow your healthcare professional's instructions. 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 ? 5769-8507 [employer]. [address] [place] [address]. All rights reserved. This information is not intended as a substitute for professional medical care. Always follow your healthcare professional's instructions. [facility] 01-29-2021 Note Patient Education Ma terials [...] felt your baby move all day. ? 6590-1605 [employer]. [address] [place] [address]. All rights reserved. This information is not intended as a substitute for professional medical care. Always follow your healthcare professional's instructions. 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 Yes. Nail armenian is not thought to be dangerous during . Just be careful about breathing the fumes. Keep windows open or use a fan. However, long-term exposure to the solvents used to remove nail armenian may not be safe. If you work [...] been lifting weights, don?t start now. ? 2980-9330 [employer]. [address] [place] [address]. All rights reserved. This information is not intended as a substitute for professional medical care. Always follow your healthcare professional's instructions. 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 No prescription or ntke-lne-brzyrkn medicine is safe for everyone all of [...] bring the load nearer. ?Get a good structural architect. Test the weight of the load. ?Tighten [...] healthcare provider before taking any medicines. ? 2108-8323 [employer]. [address] [place] [address], [place] [address]. All rights reserved. This information is not intended as a substitute for professional medical care. Always follow your healthcare professional's instructions. [facility] Evaluation note No Information [facility] [employer] Other Summary Purpose Family History No Family History Records FoundNo Family History Records Found Advance Directives No Advanced Directives Records FoundNo Advanced Directives Records Found Additional Source Comments INFORMATION SOURCE (unrecogn ized section and content) DATE CREATED AUTHOR 12/06/2021 [facility] DATE CREATED AUTHOR AUTHOR'S ORGANIZ ATION 10/07/2023 [facility] REASON FOR VISIT (unrecogniz ed [...] BE BASED ON THE PRIMARY CLINICAL RECORDS. [facility]. provides no warranty or guarantee of the accuracy or completeness of information in this document.
== END 2023-09-27 12:10 | disposition home or self-care (01) ==
LOC: US 11:26 → FBC 11:26
PROVIDERS: Admitting Provider Obstetrics & Gynecology; Visit Provider Obstetrics & Gynecology
DX: O09.523 Supervision of elderly multigravida, third trimester (principal); Z3A.35 35 weeks gestation of pregnancy
CPT/HCPCS: 76818; 96372; G0378; G0379; J0702

== ENCOUNTER 2023-09-28 12:12 | Outpatient (OUT) | payer MEDICAID, SELFPAY ==
--- NOTE | 2023-09-28 12:20 | PC.NURSE ---
in for second dose of celestone, denies needs or complaints, injection given and pt discharged home ambulatory
[2023-09-28] MEDS: BETAMETHASONE ACE/BETAMETHASONE SOD PHOS 30 MG/5 ML 12 MG IM (12:22)
== END 2023-09-28 12:23 | disposition home or self-care (01) ==
LOC: FBCO 12:13 → FBC 12:13
PROVIDERS: Visit Provider Obstetrics & Gynecology
DX: O36.0191 Maternal care for anti-D [Rh] antibodies, unspecified trimester, fetus 1 (principal)
CPT/HCPCS: 96372; J0702

== ENCOUNTER 2023-09-30 07:02 | Outpatient (OUT) | payer MEDICAID, SELFPAY ==
[2023-09-30 09:13] VITALS: BP 100/63; PULSE 86
== END 2023-09-30 09:54 | disposition home or self-care (01) ==
LOC: FBCO 07:02 → FBC 09:04
PROVIDERS: Visit Provider Obstetrics & Gynecology
DX: O09.529 Supervision of elderly multigravida, unspecified trimester (principal); Z3A.00 Weeks of gestation of pregnancy not specified
CPT/HCPCS: 59025

== ENCOUNTER 2023-10-04 07:03 | Outpatient (OUT) | payer MEDICAID, SELFPAY ==
--- NOTE | 2023-10-04 | US_ITS ---
[address] [address] Patient Name: ERIKA GRIER MRN: [id number] date: 1990 Sex: F Assigned Patient Location: US Current Patient Location: US Accession/Order Number: [id number] Exam Date: 10/04/2023 11:26 Report Date: 10/04/2023 13:07 At the request of: ANN MORENO Procedure: US OB BPP w non-stress EXAMINATION: US OB BPP w non-stress HISTORY: THIRD TRIMESTER COMPARISON: No relevant comparison available. TECHNIQUE: Ultrasound biophysical profile was performed in the radiology department. non-reactive stress testing was performed by nursing staff in the birthing center. FINDINGS: BREATHING MOVEMENTS: 2.0 GROSS BODY MOVEMENTS: 2.0 TONE: 2.0 QUALITATIVE AMNIOTIC FLUID VOLUME: 2.0 PRESENTATION: CEPHALIC HEART RATE: 137.8 bpm H.B./min AMNIOTIC FLUID VOLUME: 15.2 cm cm GESTATIONAL AGE: 36 weeks 2 days CONCLUSION: Total biophysical profile score: 8.0 Electronically authenticated by: ANJELICA UMANZOR Date: 10/04/2023 13:07
[2023-10-04 11:49] VITALS: BP 104/68; PULSE 112
== END 2023-10-04 12:20 | disposition home or self-care (01) ==
LOC: US 07:04 → FBC 11:17
PROVIDERS: Visit Provider Obstetrics & Gynecology
DX: Z34.93 Encounter for supervision of normal pregnancy, unspecified, third trimester (principal)
CPT/HCPCS: 76818

== ENCOUNTER 2023-10-05 19:31 | Outpatient (REF) | payer MEDICAID, SELFPAY | END 2023-10-05 19:32 | disposition home or self-care (01) | LOC: LAB 19:31 | PROVIDERS: Visit Provider Physician Assistant | DX: Z34.93 Encounter for supervision of normal pregnancy, unspecified, third trimester (principal) | CPT/HCPCS: 87081 ==

== ENCOUNTER 2023-10-11 07:35 | Outpatient (OUT) | payer MEDICAID, SELFPAY ==
--- NOTE | 2023-10-11 11:25 | US_ITS ---
[address] [address] Patient Name: ERIKA GRIER MRN: [id number] date: 1990 Sex: F Assigned Patient Location: Current Patient Location: [facility] Accession/Order Number: [id number] Exam Date: 10/11/2023 11:30 Report Date: 10/11/2023 11:59 At the request of: ANN MORENO Procedure: US OB BPP w non-stress EXAMINATION: US OB BPP w non-stress HISTORY: Third trimester COMPARISON: No relevant comparison available. TECHNIQUE: Ultrasound biophysical profile was performed in the radiology department. non-reactive stress testing was performed by nursing staff in the birthing center. FINDINGS: BREATHING MOVEMENTS: 2.0 GROSS BODY MOVEMENTS: 2.0 TONE: 2.0 QUALITATIVE AMNIOTIC FLUID VOLUME: 2.0 PRESENTATION: CEPHALIC HEART RATE: 156.1 bpm H.B./min AMNIOTIC FLUID VOLUME: 19.1 cm cm GESTATIONAL AGE: 37 weeks 2 days CONCLUSION: Total biophysical profile score: 8.0 Electronically authenticated by: ANJELICA UMANZOR Date: 10/11/2023 11:59
[2023-10-11 11:53] VITALS: BP 111/74; PULSE 87
== END 2023-10-11 12:30 | disposition home or self-care (01) ==
LOC: US 07:36 → FBC 11:26
PROVIDERS: Visit Provider Obstetrics & Gynecology
DX: Z34.93 Encounter for supervision of normal pregnancy, unspecified, third trimester (principal); Z3A.37 37 weeks gestation of pregnancy
CPT/HCPCS: 76818

== ENCOUNTER 2023-10-13 11:32 | Observation (INO) | payer MEDICAID, SELFPAY ==
[2023-10-13 11:42] VITALS: BP 104/73; PULSE 91
[2023-10-13 11:44] VITALS: RESP 16; TEMP 36.6
--- OUTSIDE RECORDS SUMMARY | 2023-10-13 11:44 | XMS_ITS | CCD ---
Author Name Unknown Address [address] [place] [address] Organization [facility] Care Team Providers Care Product Mgr Name Role Phone DO GIGI BARAHONA Attending [...] Name Value Interpretation Reference Range Facil ity Supervisor Dry Cleaning Cytology Reporton 2021 Supervisor Dry Cleaning Cytology Report Clinical Information Specimen Collection Date: 12/03/2021 LMP: NA Type of specimen: Cervical/endocervical HPV testing is being performed at [facility] and will be reported out in [...] smears in the future. GY Disclaimer Alpha Supervisor Dry Cleaning Disclaimer ANATOMICPATHOLOGY Normal [facility] Comment on above: Performed By: #### G YNCYTREP #### [facility] (DEFAULT) [address] [place] [address] HPV DNAon 12-05-2021 HPV DNA Scrn Negative Normal Negative [facility] Comment on above: Result Comment: The [...] of interfering substances. 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 WT. @ 6wk PPV [...] of IBD D: contraception: NFP E: social: Dendron son (Maryann); 3 older sisters; close friend [...] Oral, q6 (more content not included)... Normal [facility] TSHon 12-03-2021 TSH Qn 2.36 m[IU]/L Normal 0.45-5.33 [facility] Comment on above: Result Comment: Refe rence Ranges for individuals from to 18 years of age were obtained from The Nichelle Salcedo Handbook (20 ed) published by [facility]. Reference Ranges for Females: Females, 1st Trimester 0.05 ? 3.7 uIU/mL Females, 2nd Trimester 0.31 ? 4.35 uIU/mL Females, 3rd Trimester 0.41 ? 5.18 uIU/mL Performed By: #### C D:[id number] #### [facility] [address] [place] [address] Gynecology Office/Clinic Not edith 05-26-2021 Gynecology Office/Clinic [...] 30 packets, 11 Refill(s), Pharmacy: [id number] Medical Decision Making Chronic [...] Gigi Barahona DO 05/26/21 09:03 EDT Normal [facility] Gynecology Office/Clinic Not edith 04-23-2021 Gynecology [...] ARGUELLO Gigi Samm 04/23/21 08:21 EDT Normal [facility] Inpatient Clinical Summaryon 04-14-2021 [place] [address] [address] Clinical Summary Person Information Name: Erika Barnes Age: 31 Years : 1990 Sex: Female PCP: Dee Hayden DO Marital Status: Phone: PCP: [phone] Race: White Ethnicity: Not or Language: Vietnamese Visit Id: Visit Reason: IUP Speciality: Acuity: PP Vag Enc Type: Inpatient Med Service: Gynecology-Obstetrics Arrival: 04/11/2021 15:09:36 Discharge: Dispo Type: Address: [address] [place] [address] Diagnosis: 1:Single live ; 2:37 weeks gestation [...] range between ( 27.2 and 40.8 ) [place]ford Auto: 9.1 % -- Normal range between [...] range between ( 36.0 and 46.0 ) [place] Absolute: 1.0 x10 MCH: 28.6 pg -- [...] have not changed [address] [place], [place] [id number], [phone] ferrous sulfate (ferrous sulfate 325 mg (65 [...] Last Dose: Care Team Members: Attending Physician: Eirka Yin DO Consulting Physician: Angel Simons MD Referring Physician: Follow up: With: Address: When: Gigi Barahona DO Within 1 to 2 weeks Comments: please call to make follow-up appointment within 1-2 weeks Type Location Start Finish State OB Visit - Established BV MARY Little 04/16/2021 12:15:00 04/16/2021 12:30:00 Confir (more content not included)... Normal [facility] CBC w/ Diffon 04-13-2021 Erythrocyte distribution wid th (RBC) [Ratio] 13.2 % Normal 11.6-14.8 [facility] Comment on above: Performed By: #### C BC ####[address] [address] Hematocrit (Bld) [Volume fraction] 29.3 % Low 36.0-46.0 [facility] Comment on above: Performed By: #### C BC ####[place] [id number] Hemoglobin (Bld) [Mass/Vol] 10.1 g/dL Low 12.0-16. 0 [facility] Comment on above: Performed By: #### C BC ####[place] [id number] MCH (RBC) [Entitic mass] 28.6 pg Normal 27.0-35.0 [facility] Comment on above: Performed By: #### C BC ####[place] [id number] MCHC 34.5 % Normal 31.0-37.0 [facility] Comment on above: Performed By: #### C BC ####[address] [address] MCV (RBC) [Entitic vol] 82.9 fL Normal 80.0-100.0 [facility] Comment on above: Performed By: #### C BC ####[address] [address] Platelet 223 x10*3/mcL Normal 150-350 [facility] Comment on above: Performed By: #### C BC ####[address] [address] Platelet mean volume (Bld) [Entitic vol] 8.4 fL Normal 6.7-10.6 [facility] Comment on above: Performed By: #### C BC ####[address] [address] RBC 3.53 x10*6/mcL Low 3.80-5.20 [facility] Comment on above: Performed By: #### C BC ####[address] [address] WBC 10.6 x10*3/mcL Normal 4.5-11.0 [facility] Comment on above: Performed By: #### C BC ####[address] [address] Diff Autoon 04-13-2021 Baso Absolute 0.0 x10*3/mcL Normal 0.0-0.2 [facility] Comment on above: Performed By: #### C D:[id number] #### [address] [address] Basophils/100 WBC (Bld) 0.4 % Normal 0.0-1.5 [facility] Comment on above: Performed By: #### C D:[id number] #### [address] [address] Eos Absolute 0.1 x10*3/mcL Normal 0.0-0.4 [facility] Comment on above: Performed By: #### C D:[id number] #### [address] [address] Eosinophils/100 WBC (Bld) 0.7 % Normal 0.0-5.4 [facility] Comment on above: Performed By: #### C D:[id number] #### [address] [address] Lymph Absolute 2.2 x10*3/mcL Normal 1.0-4.8 [facility] Comment on above: Performed By: #### C D:[id number] #### [address] [address] Lymphocytes/100 WBC (Bld) 20.4 % Low 27.2-40.8 [facility] Comment on above: Performed By: #### C D:[id number] #### [address] [address] [place]ford Absolute 1.0 x10*3/mcL Normal 0.1-1.1 [facility] Comment on above: Performed By: #### C D:[id number] #### [address] [address] Monocytes/100 WBC (Bld) 9.1 % Normal 3.7-11.9 [facility] Comment on above: Performed By: #### C D:[id number] #### [address] [address] Neutro Absolute 7.4 x10*3/mcL Normal 1.8-7.7 [facility] Comment on above: Performed By: #### C D:[id number] #### [address] [address] Neutro Auto 69.4 % Normal 47.2-70.8 [facility] Comment on above: Performed By: #### C D:[id number] #### [address] [address] Progress Note - Genericon Progress Note - Generic Patient: Erika Barnes 636 Age: 31 years Sex: Female : 1990 Associated Diagnoses: 37 weeks gestation of ; Delivery of Author: Kane WILLS, Mena Little Results Review Labor/ Delivery Summary Results Review Problems (Active Problems Only) (SNOMED CT: 751217466, Onset: 07/21/20) Blood group A Rh(D) negative (SNOMED CT: 784740548, Onset: --) test positive (SNOMED CT: 350382943, Onset: --) Alopecia (SNOMED CT: 43756232, Onset: --) Delivery Summary A Membrane Status [...] No Cord Blood Sent to Lab: Yes Lithographic Photographer: Alexus Maynard Maternal Delivery Complications: None Delivery Physician: Angel Simons MD Attending Physician: Erika Yin DO Information Risk Factors: None Complications: None Nuchal Cord Times: 2 Nuchal Cord Tension: Loose Nuchal Cord Intervention: Reduced prior to delivery Umbilical Cord Description: 3 vessel cord Data Gender: Male ID Band Number: [id number] Outcome: Live Weight: 3.360 kg Score 1 [...] 04/13/2021. Discharge diagnosis: 37 weeks gestation of ([id number] Z3A.37, Discharge, Medical), Delivery of ([id number] O80, Discharge, Medical). Histories History History (3,0,0,3) # 1 Baby 1 Outcome Date: 08/18/2014 Outcome: Live Outcome or Result: Vaginal, Vacuum Assist Gender: Female Gest Age: 40 weeks Wt: 3941 g Hospital: [facility] Dannie Labor: -- Child's Name: -- Baby's Father: -- Anesthesia Type: Epidural # 2 Baby 1 Outcome Date: 12/01/2016 Outcome: Live Outcome or Result: Vaginal Gender: Female Gest Age: 39 weeks Wt: 2948 g Hospital: [facility] Dannie Labor: -- Child's Name: Martha Baby's [...] by Mena Mitchell 04/13/21 08:41 EDT Normal [facility] Progress Note - Generic Patient: Erika [...] list: Problems (Active Problems Only) (SNOMED CT: 896659659, Onset: 07/21/20) Blood group A Rh(D) negative (SNOMED CT: 424082285, Onset: --) test positive (SNOMED CT: 266734876, Onset: --) Alopecia (SNOMED CT: 57395888, Onset: --) single live infant Physical Examination [...] by Mena Mitchell 04/13/21 10:41 EDT Normal [facility] ABIDon 04-12-2021 ABID Positive Normal [facility] Comment on above: Performed By: #### C D:[id number] #### [facility] [address] [place] [address] ABO/Rhon 04-12-2021 ABO/Rh ABO/Rh: A NEG Normal [facility] Comment on above: Performed By: #### C D:[id number] #### [facility] [address] [place] [address] ABSC Autoon 04-12-2021 ABSC Auto Positive Normal [facility] Comment on above: Performed By: #### C D:[id number] #### [address] [address] Screenon 04-12-2021 Screen Screen: Negati ve FS Pos Ctl: Positive FS Neg Ctl: Negative Normal [facility] Comment on above: Performed By: #### C D:[id number] #### [address] [address] Obstetrics Progress Noteon 0 04-12-2021 Obstetrics Progress [...] Review: Problems (Active Problems Only) (SNOMED CT: 165082799, Onset: 07/21/20) Blood group A Rh(D) negative (SNOMED CT: 212745170, Onset: --) test positive (SNOMED CT: 406297082, Onset: --) Alopecia (SNOMED CT: 53032007, Onset: --) Delivery Summary A Membrane Status [...] No Cord Blood Sent to Lab: Yes Lithographic Photographer: Alexus Maynard Maternal Delivery Complications: None Delivery Physician: Angel Simons MD Attending Physician: Erika Yin DO Information Risk Factors: None Complications: None Nuchal Cord Times: 2 Nuchal Cord Tension: Loose Nuchal Cord Intervention: Reduced prior to delivery Umbilical Cord Description: 3 vessel cord Infant Data Gender: Male ID Band Number: [id number] Outcome: Live Weight: 3.360 kg Score 1 Minute: 9 Score 5 Minute: 9 Score 10 Minute: 9 . Impression and Plan Erika is a 31-year-old 4 para 3003 female at 37+ weeks estimated gestational age (EDC 05/17/2021) who presented to the labor and delivery unit of [facility] on 04/11/2021 with the complaint of [...] initiated. Contractions persisted and in the very energy rater hours of 04/12/2021 amniotomy performed for clear [...] Angel Simons MD 04/13/21 06:58 EDT Normal [facility] .Fentanyl Scrn with Conf,Uro n 04-11-2021 Ur Fentanyl Scrn w/Confirm Negative Normal NEG <1.0 [facility] Comment on above: Performed By: #### C D:[id number] #### [address] [address] Ur Fentanyl Scrn w/Confirm Qnt 0.00 ng/mL Normal <=0.9 9 [facility] Comment on above: Performed By: #### C D:[id number] #### [address] [address] CBC w/ Diffon 04-11-2021 Erythrocyte distribution wid th (RBC) [Ratio] 13.4 % Normal 11.6-14.8 [facility] Comment on above: Performed By: #### C D:[id number] #### [address] [address] Hematocrit (Bld) [Volume fraction] 34.2 % Low 36.0-46.0 [facility] Comment on above: Performed By: #### C D:[id number] #### [address] [address] Hemoglobin (Bld) [Mass/Vol] 11.7 g/dL Low 12.0-16. 0 [facility] Comment on above: Performed By: #### C D:[id number] #### [address] [address] MCH (RBC) [Entitic mass] 28.3 pg Normal 27.0-35.0 [facility] Comment on above: Performed By: #### C D:[id number] #### [address] [address] MCHC 34.3 % Normal 31.0-37.0 [facility] Comment on above: Performed By: #### C D:[id number] #### [address] [address] MCV (RBC) [Entitic vol] 82.5 fL Normal 80.0-100.0 B [facility] Comment on above: Performed By: #### C D:[id number] #### [address] [address] Platelet 282 x10*3/mcL Normal 150-350 [facility] Comment on above: Performed By: #### C D:[id number] #### [address] [address] Platelet mean volume (Bld) [Entitic vol] 8.6 fL Normal 6.7-10.6 [facility] Comment on above: Performed By: #### C D:[id number] #### [address] [address] RBC 4.14 x10*6/mcL Normal 3.80-5.20 [facility] Comment on above: Performed By: #### C D:[id number] #### [address] [address] WBC 11.3 x10*3/mcL High 4.5-11.0 [facility] Comment on above: Performed By: #### C D:[id number] #### [address] [address] Diff Autoon 04-11-2021 Baso Absolute 0.0 x10*3/mcL Normal 0.0-0.2 [facility] Comment on above: Performed By: #### . Automated Diff #### [address] [address] Basophils/100 WBC (Bld) 0.4 % Normal 0.0-1.5 B [facility] Comment on above: Performed By: #### . Automated Diff #### [address] [address] Eos Absolute 0.1 x10*3/mcL Normal 0.0-0.4 [facility] Comment on above: Performed By: #### . Automated Diff #### [address] [address] Eosinophils/100 WBC (Bld) 0.5 % Normal 0.0-5.4 [facility] Comment on above: Performed By: #### . Automated Diff #### [address] [address] Lymph Absolute 2.2 x10*3/mcL Normal 1.0-4.8 [facility] Comment on above: Performed By: #### . Automated Diff #### [address] [address] Lymphocytes/100 WBC (Bld) 19.5 % Low 27.2-40.8 [facility] Comment on above: Performed By: #### . Automated Diff #### [address] [address] [place] Absolute 1.1 x10*3/mcL Normal 0.1-1.1 [facility] Comment on above: Performed By: #### . Automated Diff #### [address] [address] Monocytes/100 WBC (Bld) 9.5 % Normal 3.7-11.9 [facility] Comment on above: Performed By: #### . Automated Diff #### [address] [address] Neutro Absolute 7.9 x10*3/mcL High 1.8-7.7 [facility] Comment on above: Performed By: #### . Automated Diff #### [address] [address] Neutro Auto 70.1 % Normal 47.2-70.8 [facility] Comment on above: Performed By: #### . Automated Diff #### [address] [address] UDS OB/Con 04-11-2021 Creatinine [Mass/Vol] 90.3 mg/dL Normal [facility] Comment on above: Performed By: #### C D:[id number] #### [address] [address] Ur Amph Scrn w/Conf Negative Normal NEG = <1000 [facility] Comment on above: Performed By: #### C D:[id number] #### [address] [address] Ur Yoko Scrn w/Conf Negative Normal NEG = <200 [facility] Comment on above: Performed By: #### C D:[id number] #### [address] [address] Ur Benzodia Scrn w/Conf Negative Normal NEG = <200 [facility] Comment on above: Performed By: #### C D:[id number] #### [address] [address] Ur Cannab Scrn w/Conf Negative Normal NEG = <50 [facility] Comment on above: Performed By: #### C D:[id number] #### [address] [address] Ur Cocaine Scrn w/Conf Negative Normal NEG = <300 [facility] Comment on above: Performed By: #### C D:[id number] #### [address] [address] Ur Methadone Scrn w/Conf Negative Normal NEG = <300 [facility] Comment on above: Performed By: #### C D:[id number] #### [address] [address] Ur Opiate Scrn w/Conf Negative Normal NEG = <300 [facility] Comment on above: Performed By: #### C D:[id number] #### [address] [address] Ur Oxy Screen w/Conf Negative Normal NEG = <100 [facility] Comment on above: Performed By: #### C D:[id number] #### [address] [address] Ur Oxy Scrn Qnt w/Confirm 4 ng/mL Normal <=99 [facility] Comment on above: Performed By: #### C D:[id number] #### [address] [address] Ur PCP Scrn w/Conf Negative Normal NEG = <25 [facility] Comment on above: Performed By: #### C D:[id number] #### [address] [address] UA pH 7.0 Normal 4.5 - 7.8 [facility] Comment on above: Performed By: #### C D:[id number] #### [address] [address] UA Spec Grav 1.015 Normal 1.003-1.035 [facility] Comment on above: Performed By: #### C D:[id number] #### [address] [address] Panel Builder [place] Yes Normal [facility] Comment on above: Performed By: #### C D:[id number] #### [address] [address] Ur Buprenorphine Scrn w/Conf Negative Normal NEG = < 10 [facility] Comment on above: Performed By: #### C D:[id number] #### [address] [address] Obstetrics Office/Clinic Not edith 04-09-2021 Obstetrics Office/Clinic Note Billing based on complexity of care not time spent Electronically signed by Gigi Barahona DO 04/10/21 18:35 EDT Normal [facility] Chlam & GC, DNAon 04-02-2021 Chlamydia, DNA Negative Normal Negative [facility] Comment on above: Result Comment: The [...] to the clinician. Performed By: #### C D:[id number] #### [place] [address] Gonorrhea, DNA Negative Normal Negative [facility] Comment on above: Result Comment: The [...] to the clinician. Performed By: #### C D:[id number] #### [address] [address] Grp B PCRon 03-29-2021 Allergic to Penicillin? Unknown Normal B [facility] Comment on above: Performed By: #### C D:[id number] #### [address] [address] Group B Strep PCR Negative Normal Negative [facility] Comment on above: Result Comment: The Izzui GBS Assay is an automated nucleic acid [...] clindamycin is noted. Performed By: #### C D:[id number] #### [place] [address] Inpatient Clinical Summaryon 03-27-2021 [place] [address] [place] [address] Clinical Summary Person Information Name: Erika Barnes Age: 31 Years : 1990 Sex: Female PCP: Dee Hayden DO Marital Status: Phone: PCP: [phone] Race: White Ethnicity: Not or Language: Vietnamese Visit Id: Visit Reason: contractions Speciality: Acuity: Ante Enc Type: Outpatient in a Bed Med Service: Gynecology-Obstetrics Arrival: 03/27/2021 17:47:20 Discharge: Dispo Type: Address: [address] [place] [address] Diagnosis: Discharged To: Home Treatments: Devices/Equipment: Professional [...] Sidney 05/12/2021 10:00:00 05/12/2021 10:15:00 Confirmed Normal [facility] Progress Note-Nurseon 06-03- 2021 Progress Note-Nurse [...] mmHg Cardiovascular Symptoms None Nail Bed Color Gustavus Clubbing Present No Capillary Refill Less than [...] of Spe (more content not included)... Normal [facility] OB Follow Upon 03-06-2021 OB Follow [...] Electronically Signed in Other Vendor System) Normal [facility] Obstetrics Office/Clinic Not edith 03-05-2021 Obstetrics Office/Clinic Note Billing dictated by medical decision yvonne ing, complexity of care ... Not time spent with patient Electronically signed by Gigi Barahona DO 03/05/21 14:15 EDT Normal [facility] ABSC Autoon 02-18-2021 ABSC Auto Negative Normal [facility] Comment on above: Performed By: #### C D:[id number] #### [address] [address] Rh Onlyon 02-18-2021 Rh Only Negative Normal [facility] Comment on above: Performed By: #### C D:[id number] #### [address] [address] RhIG Requeston 02-18-2021 RhIG Request History Check: Done RhIg Request Reason: Normal [facility] Comment on above: Performed By: #### R ELVIRA ####[address] [address] CBCon 02-05-2021 Erythrocyte distribution wid th (RBC) [Ratio] 13.4 % Normal 11.6-14.8 [facility] Comment on above: Performed By: #### C BCI #### [address] [address] Hematocrit (Bld) [Volume fraction] 37.1 % Normal 36.0-46.0 [facility] Comment on above: Performed By: #### C BCI #### [address] [address] Hemoglobin (Bld) [Mass/Vol] 12.5 g/dL Normal 12.0-16. 0 [facility] Comment on above: Performed By: #### C BCI #### [address] [address] MCH (RBC) [Entitic mass] 31.2 pg Normal 27.0-35.0 [facility] Comment on above: Performed By: #### C BCI #### [address] [address] MCHC 33.8 % Normal 31.0-37.0 [facility] Comment on above: Performed By: #### C BCI #### [address] [address] MCV (RBC) [Entitic vol] 92.3 fL Normal 80.0-100.0 B [facility] Comment on above: Performed By: #### C BCI #### [address] [address] Platelet 250 x10*3/mcL Normal 150-350 [facility] Comment on above: Performed By: #### C BCI #### [address] [address] Platelet mean volume (Bld) [Entitic vol] 8.5 fL Normal 6.7-10.6 [facility] Comment on above: Performed By: #### C BCI #### [address] [address] RBC 4.02 x10*6/mcL Normal 3.80-5.20 [facility] Comment on above: Performed By: #### C BCI #### [address] [address] WBC 8.7 x10*3/mcL Normal 4.5-11.0 [facility] Comment on above: Performed By: #### C BCI #### [address] [address] Gest Diab Scn (ACOG)on 02-05 History of diabetes or gastric bypass? No Normal [facility] Comment on above: Performed By: #### C D:[id number] #### [address] [address] Glucose [Mass/Vol] 70 mg/dL Normal 70-134 [facility] Comment on above: Result Comment: Acco rding to the ADA, a glucose threshold of > 139 mg/dL after a 50-gram load identifies approximately 80% of women with gestational diabetes mellitus, while the sensitivity is further increased to approximately 90% by a threshold of >129 mg/dL. Performed By: #### C D:[id number] #### [place] [address] [place] [address] HIV1/2 Ab,Ag Scnon 1 HIV-1/2 Ab,Ag 0.12 Normal [facility] Comment on above: Performed By: #### C D:[id number] #### [address] [place] [address] HIV-1/2 Ab,Ag Interp Normal Negative [facility] Comment on above: Result Comment: N egative Negative Performed By: #### C D:[id number] #### [address] [address] Obstetrics Office/Clinic Not edith 02-05-2021 Obstetrics Office/Clinic Note I personally spent 41 minutes caring for patient today Electronically signed by Gigi Barahona DO 02/05/21 08:45 EDT Normal [facility] US OB > 14 Weekson 1 [...] Electronically Signed in Other Vendor System) Normal [facility] Encounters Encounter Date Encounter Type Care Provider Facility Start: 10-05-2023 End: 10-05-2023 ambulatory ARTHUR GALLARDO Not Available Start: 09-21-2023 End: 09-21-2023 ambulatory ANN MORENO Not Available Start: 10-10-2022 End: 10-10-2022 ambulatory Josh Cody Other [facility] Other Start: 10-10-2022 Telephone encounter [facility] Start: 12-03-2021 End: 12-04-2021 ambulatory DO [facility] Facility:[facility] Start: 02-18-2021 End: 02-18-2021 ambulatory DO [facility] Facility:[facility] Payers Date Payer Category Payer Medicaid [id number] 2021 Unknown 1990 Unknown [id number] 2.16. [id number] 1990 Unknown [id number] 2.16. 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 Resources ?Your cardiac rehabilitation program and local hospital or clinic ?[place] [employer] www.aacvpr.org ?[place] [employer] [phone] www.diabetes.org ?[place] [employer] 568-179-0045 heart.org ?Your Guide to Lowering Your Blood Pressure with DASH?www.nhlbi.nih.gov/health/publi c/heart/hbp/dash ?National Heart, Lung, and Blood [place] 021-081-3391 www.nhlbi.nih.org ?WomenHeart: The National Coalition for Women with Heart Disease 107-028-4265 www.womenheart.org ?The member services department of your health insurance plan ?The medical benefits department, human resources department, or wellness center at your workplace ?An Internet or library search on heart disease, cardiovascular disease, coronary artery disease, peripheral artery disease, or stroke ? 9006-[address] [employer] [place] [address]. All rights reserved. This information is not [...] breast self-examination (BSE). These experts include the [place] [employer] and the [place] [employer] Obstetricians and Gynecologists. Some experts [...] This means they are not cancer. ? 9267-7930 [employer]. [address] [place] [address]. All rights reserved. This information is not [...] (mg) per serving (more content not included)... [facility] 05-20-2021 Note Patient Education Ma terials Name: Erika Barnes Current Date: 05/20/2021 15:00:53 [place] : 1990 The following sheet(s) are the Patient Education Leaflets for Erika Barnes Model Builder Display For New Mothers: Staying Fit After Delivery [...] for 5 seconds. Repeat 5 times. ? 4966-7294 [employer]. [address] [place] [address], [place] [address]. All rights reserved. This information is not intended as a substitute for professional medical care. Always follow your healthcare professional's instructions. [facility] 04-16-2021 Note Patient Education Ma terials [...] drainage, or bleeding from your incision. ? 9647-3911 [employer]. [address] [place], [place] [id number]. All rights reserved. This information is not intended as a substitute for professional medical care. Always follow your healthcare professional's instructions. [facility] 04-11-2021 Note Chief Complaint R/O Labor History of Present Illness Erika is a 31-year-old 4 para 3003 female at 37 weeks 5 days EGA (EDC 05/17/2021) who presented to the labor and delivery unit of [facility] on 04/11/2021 with the complaint of [...] Auto 19.5 % (Low) 04/11/2021 18:41 EDT Blackford Auto 9.5 % 04/11/2021 18:41 EDT Eos Auto 0.5 % 04/11/2021 18:41 EDT Basophil Auto 0.4 % 04/11/2021 18:41 EDT Neutro Absolute 7.9 x10 Lymph Absolute 2.2 x10 Blackford Absolute 1.1 x10 Eos Absolute 0.1 x10 [...] Scrn w/Conf Negative (more content not included)... [facility] 03-27-2021 Note Pt answered no to all Covid-19 screening questions Electronically signed by Jasmin Greene 03/27/21 18:25 EDT [facility] 03-27-2021 Note Patient Education Ma terials Name: Erika Barnes Current Date: 03/27/2021 11:45:56 [place] : 1990 The following sheet(s) are the Patient Education Leaflets for Erika Barnes Model Builder Display and Childbirth: What to Bring to the [...] and headphones ?Camera with new batteries or marine steamfitter ?Coins for vending machines ?Telephone numbers of people to call after the ?Cell phone and marine steamfitter ?Insurance information and any other paperwork needed for your hospital stay ?A list of baby names you are considering ?An infant, rear-facing car seat for bringing home your baby (this is required by law) Add anything else that you don?t want to forget: __ __ __ __ __ __ __ ? 7456-[address] [employer] [place] [address]. All rights reserved. This information is not intended as a substitute for professional medical care. Always follow your healthcare professional's instructions. [facility] 03-13-2021 Note Patient Education Ma terials Name: Cameron Erika Connie Current Date: 03/13/2021 11:34:32 [place]/[facility] : 1990 The following sheet(s) are the Patient Education Leaflets for Erika Barnes Model Builder Display Back Pain During : Moving Safely Learning [...] helps take weight off your back. ? 8932-4242 [employer]. [address] [place] [address]. All rights reserved. This information is not intended as a substitute for professional medical care. Always follow your healthcare professional's instructions. [facility] 02-26-2021 Note Patient Education Ma terials Name: Erika Barnes Current Date: 02/26/2021 16:08:06 [place]/[facility] : 1990 The following sheet(s) are the Patient Education Leaflets for Erika Barnes Model Builder Display Back Pain During : Positioning Yourself When [...] knees, and keep your back straight. ? 1251-3311 [employer]. [address] [place] [address], [place] [address]. All rights reserved. This information is not intended as a substitute for professional medical care. Always follow your healthcare professional's instructions. [facility] 02-13-2021 Note Patient Education Ma terials Name: Erika Barnes Connie Current Date: 02/13/2021 09:37:26 [place] : 1990 [facility]: [id number] The following sheet(s) are the Patient Education Leaflets for Kathy Barnesica Connie Model Builder Display : Your Third Trimester Changes As the [...] In other words, any day now... ? 9809-5913 [employer]. [address] [place] [address]. All rights reserved. This information is not intended as a substitute for professional medical care. Always follow your healthcare professional's instructions. [facility] 01-29-2021 Note Patient Education Ma terials [...] felt your baby move all day. ? 5202-1742 [employer]. [address] [place] [address]. All rights reserved. This information is not intended as a substitute for professional medical care. Always follow your healthcare professional's instructions. [facility] 01-02-2021 Note Patient Education Ma terials Name: Erika Barnes Current Date: 01/02/2021 11:14:04 [place] : 1990 The following sheet(s) are the Patient Education Leaflets for Van Barnessslcua Rosales Model Builder Display : More Common Questions On this sheet, [...] Can I paint my nails? Yes. Nail american is not thought to be dangerous during . Just be careful about breathing the fumes. Keep windows open or use a fan. However, long-term exposure to the solvents used to remove nail american may not be safe. If you work [...] been lifting weights, don?t start now. ? 8046-5842 [employer]. [address] [place] [address]. All rights reserved. This information is not intended as a substitute for professional medical care. Always follow your healthcare professional's instructions. [facility] 12-12-2020 Note Patient Education Ma terials Name: Erika Barnes Current Date: 12/12/2020 08:44:59 [place] : 1990 The following sheet(s) are the Patient Education Leaflets for Erika Barnes Model Builder Display : Common Questions There are plenty of [...] Which medicines are safe? No prescription or djjr-xet-wsfsnko medicine is safe for everyone all of [...] bring the load nearer. ?Get a good shirt ironer. Test the weight of the load. ?Tighten [...] healthcare provider before taking any medicines. ? 9937-0907 [employer]. [address] [place] [address], [place] [address]. All rights reserved. This information is not intended as a substitute for professional medical care. Always follow your healthcare professional's instructions. [facility] Evaluation note No Information [facility] [employer] Other Summary Purpose Family History No Family History Records FoundNo Family History Records Found Advance Directives No Advanced Directives Records FoundNo Advanced Directives Records Found Additional Source Comments INFORMATION SOURCE (unrecogn ized section and content) DATE CREATED AUTHOR 12/06/2021 [facility] DATE CREATED AUTHOR AUTHOR'S ORGANIZ ATION 10/07/2023 [facility] REASON FOR VISIT (unrecogniz ed [...] BE BASED ON THE PRIMARY CLINICAL RECORDS. [employer] [facility]. provides no warranty or guarantee of the accuracy or completeness of information in this document.
[2023-10-13 11:58] VITALS: RESP 16; TEMP 36.7
[2023-10-13 12:05] LABS: Bilirubin Urine NEGATIVE (NEGATIVE); Blood Urine NEGATIVE (NEGATIVE); Clarity Urine CLEAR (CLEAR); Color Urine LT. YELLOW (YELLOW); Glucose Urine UA NEGATIVE (NEGATIVE); Ketones Urine NEGATIVE (NEGATIVE); Leukocyte Esterase Urine SMALL (NEGATIVE); Nitrite Urine NEGATIVE (NEGATIVE); Protein Urine NEGATIVE (NEG/TRACE); pH Urine 7.5 (5.0-9.0)
[2023-10-13 12:15] LABS: Urine Microscopic Indicated YES
[2023-10-13 12:34] LABS: Bacteria Urine TRACE #/HPF (NONE SEEN); Cast Seen? NONE SEEN #/LPF (NONE SEEN); Crystals Seen? None Seen #/HPF (None Seen); Mucus Urine NONE SEEN (NONE SEEN); RBC Urine 0-2 #/HPF (0-2); Squamous Epithelial Cell Urine MODERATE #/LPF (NONE/RARE); Urine Culture Indicated YES
--- NOTE | 2023-10-13 14:08 | PC.NURSE ---
ambulates in department, states feels the same with ctxs but baby may have moved off back
[2023-10-13 16:43] VITALS: BP 103/76; PULSE 90
== END 2023-10-13 18:31 | disposition home or self-care (01) ==
PROVIDERS: Admitting Provider Obstetrics & Gynecology; Visit Provider Obstetrics & Gynecology
DX: O47.1 False labor at or after 37 completed weeks of gestation (principal); Z3A.37 37 weeks gestation of pregnancy
CPT/HCPCS: 81001; 87086; G0378

== ENCOUNTER 2023-10-19 07:52 | Outpatient (OUT) | payer MEDICAID, SELFPAY ==
--- NOTE | 2023-10-19 10:44 | US_ITS ---
[address] [address] Patient Name: ERIKA GRIER MRN: [id number] date: 1990 Sex: F Assigned Patient Location: US Current Patient Location: US Accession/Order Number: [id number] Exam Date: 10/19/2023 10:48 Report Date: 10/19/2023 11:25 At the request of: ANN MORENO Procedure: US OB BPP w non-stress EXAMINATION: US OB BPP w non-stress HISTORY: Third trimester COMPARISON: Ultrasound OB biophysical 10/11/2023 TECHNIQUE: Ultrasound biophysical profile was performed in the radiology department. BREATHING MOVEMENTS: 2.0 GROSS BODY MOVEMENTS: 2.0 TONE: 2.0 QUALITATIVE AMNIOTIC FLUID VOLUME: 2.0 PRESENTATION: CEPHALIC HEART RATE: 147.5 bpm bpm. AMNIOTIC FLUID VOLUME: 18.3 cm GESTATIONAL AGE: 38 weeks 3 days CONCLUSION: 1. Total biophysical profile score 8.0. 2. Large amount of echogenic floating debris throughout the amniotic fluid. Electronically authenticated by: MANDO DIEZ Date: 10/19/2023 11:25
== END 2023-10-19 12:01 | disposition home or self-care (01) ==
LOC: US 07:52 → FBC 11:13
PROVIDERS: Visit Provider Obstetrics & Gynecology
DX: Z34.93 Encounter for supervision of normal pregnancy, unspecified, third trimester (principal)
CPT/HCPCS: 76818

== ENCOUNTER 2023-10-20 09:34 | Inpatient (IN) | payer MEDICAID, SELFPAY ==
[2023-10-20] VITALS (45 sets, daily range): BP systolic 71–124; BP diastolic 47–78; PULSE 72–120; TEMP 35.8–36.7
[2023-10-20] MEDS: 0.9 % SODIUM CHLORIDE 1,000 ML 1000 ML IV (09:53)
[2023-10-20 10:22] LABS: Hematocrit 39.1 % (36.0-48.0); Hemoglobin 13.1 g/dL (12.0-16.0); Mean Corpuscular HGB Conc 33.5 g/dL (29.9-35.2); Mean Corpuscular Volume 89.5 fL (81.0-99.0); Mean Platelet Volume 10.2 fL (9.5-13.5); Platelet Count 265 10^3/uL (150-450); Red Blood Count 4.37 10^6/uL (4.20-5.40); Red Cell Distribution Width 13.2 % (11.0-15.0); White Blood Count 9.1 10^3/uL (4.0-11.0)
[2023-10-20] MEDS: 0.9 % SODIUM CHLORIDE 1,000 ML 125 ML IV ×2 (10:33→14:19)
[2023-10-20 10:42] LABS: Cannabinoid Screen Urine NEGATIVE (NEGATIVE); Phencyclidine Screen Urine NEGATIVE (NEGATIVE)
[2023-10-20 10:43] LABS: Amphetamine Screen Urine NEGATIVE (NEGATIVE); Barbiturates Screen Urine NEGATIVE (NEGATIVE); Benzodiazepines Screen Urine NEGATIVE (NEGATIVE); Buprenorphine Screen Urine NEGATIVE (NEGATIVE); Cocaine Screen Urine NEGATIVE (NEGATIVE); Methadone Screen Urine NEGATIVE (NEGATIVE); Methamphetamines Screen Urine NEGATIVE (NEGATIVE); Opiate Screen Urine NEGATIVE (NEGATIVE); Oxycodone Screen Urine NEGATIVE (NEGATIVE); Tricyclic Antidepressant Urine NEGATIVE (NEGATIVE)
[2023-10-20] MEDS: FENTANYL CITRATE/PF 100 MCG/2 ML VIAL EPIDURAL ×2 (14:18→14:19)
[2023-10-20] MEDS: ROPIVACAINE HCL/PF 400 MG/200 ML PREMIX EPIDURAL (14:18)
[2023-10-20] MEDS: OXYTOCIN/0.9 % SODIUM CHLORIDE 10 UNITS/500 ML PLAST..BAG 6 UNIT IV (18:15)
--- NOTE | 2023-10-20 19:24 | W.PC.ACHO ---
Registration Status: ADM IN Primary Language: Bahamian Preferred Language: Bahamian Active Medications Generic Name Dose Route Start Last Admin Trade Name Brad PRN Reason Stop Dose Admin Carboprost Tromethamine 250 mcg 10/20/23 09:37 Carboprost Tromethamine 250 Mcg/Ml 1 Ml Vial IM 10/22/23 09:40 Q15M PRN Bleeding Ephedrine Sulfate 5 mg 10/20/23 12:07 Ephedrine Sulfate 50 Mg/Ml Vial IV 10/21/23 12:09 Q5M PRN Blood Pressure - Low Fentanyl Citrate 100 mcg 10/20/23 12:07 10/20/23 14:19 Fentanyl Citrate/Pf 100 Mcg/2 Ml Vial EPIDURAL 100 mcg ONCE PRN Administration epidural Fentanyl Citrate 100 mcg 10/20/23 12:07 10/20/23 14:18 Fentanyl Citrate/Pf 100 Mcg/2 Ml Vial EPIDURAL 100 mcg ONCE PRN Administration epidural Sodium Chloride 1,000 mls @ 125 mls/hr 10/20/23 09:45 10/20/23 14:19 Sodium Chloride 0.9% 1,000 Ml IV 125 mls/hr .Q8H NIMO Administration Oxytocin/Sodium Chloride 10 units in 500 mls @ 6 mls/hr 10/20/23 18:45 10/20/23 18:15 Pitocin 10 Unit/500 Ml-Ns IV 2 milliunit/min Q24H NIMO 6 mls/hr Administration Protocol 2 MILLIUNIT/MIN Methylergonovine Maleate 0.2 mg 10/20/23 09:37 Methylergonovine Maleate 0.2 Mg/Ml Ampule IM 10/22/23 09:40 ONCE PRN Uterine Contractility/Contract Methylergonovine Maleate 0.2 mg 10/20/23 09:37 Methylergonovine Maleate 0.2 Mg Tablet PO 10/22/23 09:40 Q4H PRN Uterine Contractility/Contract Misoprostol 600 mcg 10/20/23 09:37 Misoprostol 100 Mcg Tablet PO 10/22/23 09:40 ONCE PRN Uterine Bleeding Misoprostol 800 mcg 10/20/23 09:37 Misoprostol 100 Mcg Tablet SL 10/22/23 09:40 ONCE PRN Uterine Bleeding Misoprostol 1,000 mcg 10/20/23 09:37 Misoprostol 100 Mcg Tablet DE 10/22/23 09:40 ONCE PRN Uterine Bleeding Ondansetron HCl 4 mg 10/20/23 09:37 Ondansetron Pf 4 Mg/2 Ml Vial IV Q6H PRN Nausea And Vomiting Oxytocin 10 unit 10/20/23 09:37 Oxytocin 10 Unit/Ml Vial IM 10/22/23 09:40 ONCE PRN bleeding Diet Category Date Time Status Regular Consistency Diet Diet 10/20/23 09:41 Active Consults Category Date Time Status Consult to Anesthesiology Routine Cons 10/20/23 09:38 Ordered IV Insertion/Site Date of IV Line Insertion [18g 10/20/23 right Forearm] IV Insertion Time [18g right 09:45 Forearm] Neurology Patient orientation (short person,place,time,situation list) Respiratory Oxygen Delivery Method Room Air Oxygen Delivery Method Room Air
[2023-10-20] MEDS: OXYTOCIN/0.9 % SODIUM CHLORIDE 20 UNITS/1,000 ML PLAST..BAG 125 UNIT IV (22:43)
--- NOTE | 2023-10-20 22:53 | PM.OBPRCVD ---
Procedure Intrapartal events: None Induction method: none Delivery augmentation: rupture of membranes and pitocin Delivery monitor: external FHT and external uterine Route of delivery: Episiotomy Description: none Laceration description: periurethral - 1st degree Delivery repair: Vicryl Estimated blood loss (mL): 200 Anesthesia type: Epidural Disposition: floor Infant Delivery date: 10/20/23 Gender: female presentation: vertex Placental delivery description: Spontaneous cord description: 3 Vessels
[2023-10-21] VITALS (9 sets, daily range): BP systolic 89–112; BP diastolic 53–71; PULSE 71–107; RESP 16–18; TEMP 36.6
[2023-10-21] MEDS: IBUPROFEN 600 MG TABLET PO ×2 (00:24→09:04)
[2023-10-21] MEDS: GLYCERIN/WITCH HAZEL PADS 1 PAD TOPICAL (05:19)
[2023-10-21] MEDS: BENZOCAINE/MENTHOL 85 GRAM SPRAY BOTTLE 1 APPLIC TOPICAL (05:19)
[2023-10-21 07:06] LABS: Basophils Percent Auto 0.2 % (0.2-2.0); Eosinophils Percent Auto 0.2 % (0.9-7.0); Hematocrit 32.5 % (36.0-48.0); Immature Granulocytes Abs Auto 0.07 10^3/uL (0.00-0.03); Immature Granulocytes Pct Auto 0.5 % (0.0-0.5); Lymphocytes Absolute Auto 2.3 10^3/uL (1.2-3.8); Lymphocytes Percent Auto 15.3 % (20.5-60.0); Mean Corpuscular HGB Conc 33.8 g/dL (29.9-35.2); Mean Corpuscular Hemoglobin 29.8 pg (26.7-34.0); Mean Corpuscular Volume 88.1 fL (81.0-99.0); Mean Platelet Volume 9.9 fL (9.5-13.5); Monocytes Percent Auto 6.8 % (1.7-12.0); Neutrophils Absolute Auto 11.3 10^3/uL (1.4-6.5); Platelet Count 237 10^3/uL (150-450); Red Blood Count 3.69 10^6/uL (4.20-5.40); Red Cell Distribution Width 13.2 % (11.0-15.0); White Blood Count 14.7 10^3/uL (4.0-11.0)
--- NOTE | 2023-10-21 07:41 | W.PC.ACHO ---
Registration Status: ADM IN Primary Language: Vietnamese Preferred Language: Vietnamese Active Medications Generic Name Dose Route Start Last Admin Trade Name Brad PRN Reason Stop Dose Admin Acetaminophen 650 mg 10/20/23 22:54 Acetaminophen 325 Mg Tablet PO Q6H PRN Mild Pain Al Hydroxide/Mg Hydroxide 2,400 mg 10/20/23 22:54 Magnesium Hydroxide 2,400 Mg/10 Ml Oral.Susp PO Q6H PRN Dyspepsia Benzocaine/Menthol 1 applic 10/20/23 22:54 10/21/23 05:19 Benzocaine/Menthol 85 Gram He[place]in Bottle TOPICAL 1 applic Q2H PRN Administration Pain Carboprost Tromethamine 250 mcg 10/20/23 09:37 Carboprost Tromethamine 250 Mcg/Ml 1 Ml Vial IM 10/22/23 09:40 Q15M PRN Bleeding Diphtheria/Pertussis/Tetanus Vacc 0.5 ml 10/22/23 09:00 Adacel Diph,Pertuss(Acell),Tet Vac/Pf 0.5 Ml Adult Syringe IM 10/22/23 09:01 .ONCE ONE Docusate Sodium 100 mg 10/21/23 09:00 Docusate Sodium 100 Mg Capsule PO BID NIMO Ephedrine Sulfate 5 mg 10/20/23 12:07 Ephedrine Sulfate 50 Mg/Ml Vial IV 10/21/23 12:09 Q5M PRN Blood Pressure - Low Fentanyl Citrate 100 mcg 10/20/23 12:07 10/20/23 14:19 Fentanyl Citrate/Pf 100 Mcg/2 Ml Vial EPIDURAL 100 mcg ONCE PRN Administration epidural Fentanyl Citrate 100 mcg 10/20/23 12:07 10/20/23 14:18 Fentanyl Citrate/Pf 100 Mcg/2 Ml Vial EPIDURAL 100 mcg ONCE PRN Administration epidural Sodium Chloride 1,000 mls @ 125 mls/hr 10/20/23 09:45 10/20/23 14:19 Sodium Chloride 0.9% 1,000 Ml IV 125 mls/hr .Q8H NIMO Administration Oxytocin/Sodium Chloride 10 units in 500 mls @ 6 mls/hr 10/20/23 18:45 10/20/23 18:15 Pitocin 10 Unit/500 Ml-Ns IV 2 milliunit/min Q24H NIMO 6 mls/hr Administration Protocol 2 MILLIUNIT/MIN Ibuprofen 600 mg 10/20/23 22:54 10/21/23 00:24 Ibuprofen 600 Mg Tablet PO 600 mg Q6H PRN Administration Moderate Pain Measles/Mumps/Rubella Vaccine Live 0.5 ml 10/22/23 09:00 Measles,Mumps,Rubella Vacc/Pf 0.5 Ml Vial SQ 10/22/23 09:01 .ONCE ONE Methylergonovine Maleate 0.2 mg 10/20/23 09:37 Methylergonovine Maleate 0.2 Mg/Ml Ampule IM 10/22/23 09:40 ONCE PRN Uterine Contractility/Contract Methylergonovine Maleate 0.2 mg 10/20/23 09:37 Methylergonovine Maleate 0.2 Mg Tablet PO 10/22/23 09:40 Q4H PRN Uterine Contractility/Contract Misoprostol 600 mcg 10/20/23 09:37 Misoprostol 100 Mcg Tablet PO 10/22/23 09:40 ONCE PRN Uterine Bleeding Misoprostol 800 mcg 10/20/23 09:37 Misoprostol 100 Mcg Tablet SL 10/22/23 09:40 ONCE PRN Uterine Bleeding Misoprostol 1,000 mcg 10/20/23 09:37 Misoprostol 100 Mcg Tablet AR 10/22/23 09:40 ONCE PRN Uterine Bleeding Ondansetron HCl 4 mg 10/20/23 09:37 Ondansetron Pf 4 Mg/2 Ml Vial IV Q6H PRN Nausea And Vomiting Oxytocin 10 unit 10/20/23 09:37 Oxytocin 10 Unit/Ml Vial IM 10/22/23 09:40 ONCE PRN bleeding Senna 17.2 mg 10/20/23 20:00 Sennosides 8.6 Mg Tablet PO QHS PRN Constipation Simethicone 80 mg 10/20/23 22:54 Simethicone 80 Mg Tab.Chew PO QID PRN Abdominal Distention Temazepam 15 mg 10/20/23 22:54 Temazepam 15 Mg Capsule PO QHS PRN Sleep Witch Claribel/Glycerin 1 pad 10/20/23 22:54 10/21/23 05:19 Glycerin/Witch Claribel Pads TOPICAL 1 pad Q2H PRN Administration Pain Diet Category Date Time Status Regular Consistency Diet Diet 10/20/23 22:54 Active Consults Category Date Time Status Consult to Anesthesiology Routine Cons 10/20/23 09:38 Ordered IV Insertion/Site Date of IV Line Insertion [18g 10/20/23 right Forearm] IV Insertion Time [18g right 09:45 Forearm] Neurology Patient orientation (short person,place,time,situation list) Respiratory Oxygen Delivery Method Room Air Oxygen Delivery Method Room Air Oxygen Delivery Method Room Air Cardiology Heart Sounds Strong,Regular
[2023-10-21] MEDS: DOCUSATE SODIUM 100 MG CAPSULE PO ×2 (09:05→22:21)
[2023-10-21] MEDS: RHO(D) IMMUNE GLOBULIN 1,500 UNIT SYRINGE 1500 UNIT IV (09:05)
--- NOTE | 2023-10-21 13:09 | PM.OBPN ---
OB - PN: Subj Subjective Patient comments: no complaints [place] status: doing well feeding status: exclusively Exam Narrative Exam Narrative: FEELS WELL Constitutional Vital Signs, click to edit/add: Last Vital Signs Temp 98.1 F 10/20/23 23:00 Pulse 107 H 10/21/23 09:02 Resp 18 10/21/23 00:15 BP 105/71 10/21/23 09:02 O2 Del Method Room Air 10/21/23 00:15 Common normals: no apparent distress, oriented x3 and alert HENMT Common normals: normocephalic and head/scalp atraumatic Eye Pupil: PERRL and accommodation reflex normal Neck & C-Spine Common normals: full ROM and supple Respiratory Common normals: normal respiratory effort Cardio Common normals: regular rate and regular rhythm GI Common normals: Normal to inspection, nondistended, normoactive bowel sounds present and soft to palpation Common normals: no CVA tenderness Extremity Common normals: normal to inspection, full ROM and no calf tenderness Neuro Common normals: oriented x3, CN's II-XII intact bilaterally, moves all extremities, no focal motor deficits and no sensory deficits noted Psych Common normals: mental status grossly normal, thought process normal, cooperative and affect normal Results Labs Labs: Short CBC 10/21/23 Range/Units 06:47 WBC 14.7 H (4.0-11.0) 10^3/uL Hgb 11.0 L (12.0-16.0) g/dL Hct 32.5 L (36.0-48.0) % Plt Count 237 (150-450) 10^3/uL OB - PN: A/P Assessment and Plan (1) Normal vaginal delivery: Assessment and Plan: NO COMPLAINTS NO PROBLEM. EXAM NORMAL. BABY DOING WELL. BREAST FEEDING. Plan - Vaginal Delivery day: 2 Plan: routine care Time Spent with Patient Time: Total time spent is greater than 50% in coordination of care (as documented) at patient's floor/unit and/or counseling patient: Total time spent with greater than 50% in coordination of care (as documented) at patient's floor/unit and/or counseling patient: less than 15 minutes
[2023-10-21] MEDS: IBUPROFEN 400 MG TABLET 800 MG PO (15:39)
[2023-10-21] MEDS: ACETAMINOPHEN 500 MG TABLET 1000 MG PO (18:24)
[2023-10-22] MEDS: IBUPROFEN 400 MG TABLET 800 MG PO (01:50)
[2023-10-22] MEDS: DOCUSATE SODIUM 100 MG CAPSULE PO (08:08)
[2023-10-22] MEDS: ACETAMINOPHEN 500 MG TABLET 1000 MG PO (08:08)
[2023-10-22 08:10] VITALS: RESP 18; TEMP 36.5
[2023-10-22 08:12] VITALS: BP 110/77; PULSE 92
--- NOTE | 2023-10-22 13:25 | PC.NURSE ---
Rubella Status discussed with pt, and immunization offered. Pt states understanding and verbalizes that she will follow up with her PCP and get vaccinated then.
--- NOTE | 2023-11-18 13:08 | PM.OBDS ---
DS: Providers Provider Date of admission: 10/20/23 09:34 Primary care physician: Non-Staff Physician, Admitting clinician: Ja Aguayo Consults: 10/20/23 09:38 Consult to Anesthesiology Routine Consulting Provider: Elton Kelley Reason for consultation: epidural Discharging clinician: Araceli Cline Anticipated date of discharge: 10/22/23 DS: Diagnosis Discharge Diagnosis (1) Normal vaginal delivery: Assessment and plan: DOING WELL, VOICING NO COMPLAINTS, VSS NORMAL, CLINICAL EXAM NONFOCAL Plan S/P VAGINAL DELIVERY UNCOMPLICATED DOING WELL, PLAN DISCHARGE TO HOME OB - DS: Summary Complications complications: none Infant Delivery method: spontaneous vaginal delivery Gender: female Discharge plan: home Status at Discharge Functional status at discharge: independent ambulation Overall status at discharge: patient is back to baseline Time Spent with Patient Time attestation: Total time spent providing and/or coordinating discharge services: Time spent: less than 30 minutes Specific discharge activities: NO SEX FOR SIX WEEKS, SCHEDULE EXAM IN SIX WEEKS, BABY TO SEE PLANT PATHOLOGIST WITHIN SEVEN DAYS, SPORTS BRA 25/7 IF DECIDES TO STOP BREAST FEEDING, GENERAL COVID AND RSV PRECAUTIONS, CALL FOR PROBLEM OR CONCERN. Exam Constitutional Vital Signs, click to edit/add: Last Vital Signs Temp 97.7 F 10/22/23 08:10 Pulse 92 H 10/22/23 08:12 Resp 18 10/22/23 08:10 BP 110/77 10/22/23 08:12 O2 Del Method Room Air 10/22/23 08:10 Common normals: no apparent distress, oriented x3, healthy appearing and alert General appearance: cooperative and comfortable HENID Common normals: normocephalic and head/scalp atraumatic Eye Pupil: PERRL and accommodation reflex normal Neck & C-Spine Common normals: full ROM and supple Respiratory Common normals: normal respiratory effort Cardio Common normals: regular rate and regular rhythm GI Common normals: Normal to inspection, nondistended, normoactive bowel sounds present, soft to palpation and non-tender Common normals: no CVA tenderness Back & Pelvis Common normals: thoracic and lumbar spine normal to inspection and no thoracic nor lumbar tenderness Extremity Common normals: normal to inspection, full ROM and no calf tenderness Neuro Common normals: CN's II-XII intact bilaterally, no focal motor deficits and no sensory deficits noted Psych Common normals: mental status grossly normal, thought process normal, cooperative, affect normal and speech normal Attitude: calm Discharge Plan Discharge Disposition: Home, Self-Care Condition: Good Assessment: good condition Plan of Treatment: routine instructions Discharge Medications: Continued Complete 14 mg iron- 400 mcg tablet 1 tab PO DAILY acetaminophen [Pain Relief (acetaminophen)] 325 mg tablet 650 mg PO Q6H PRN (Reason: pain) Discontinued aspirin [Aspirin Childrens] 81 mg tablet,chewable 81 mg PO DAILY Activity: resume usual activities as tolerated Activity Detail: walking only exercise 6 weeks, no sex six weeks, post exam 6 weeks, sports bra 17/05 if decides to stop breast feeding, 12 glasses of water a day while breast feeding, no bathtub 4 weeks, may shower, may climb stairs Diet: regular diet Patient Instructions: Vaginal Delivery (DC) Activity Restrictions/Additional Instructions: as above Forms: Portal Instructions Follow Up Appointments: six weeks with Dr. Aguayo Discharge Date/Time: 10/22/23 14:10 Discharge location: home
== END 2023-10-22 14:10 | disposition home or self-care (01) | DRG 560 ==
PROVIDERS: Admitting Provider Obstetrics & Gynecology; Visit Provider Obstetrics & Gynecology
DX: O26.893 Other specified pregnancy related conditions, third trimester (principal); O70.0 First degree perineal laceration during delivery; Z3A.38 38 weeks gestation of pregnancy; Z37.0 Single live birth; Z67.11 Type A blood, Rh negative
CPT/HCPCS: 36415; 59050; 59410; 76818; 80307; 85025; 85027; 85461; 86850; 86900; 86901; 96365; 96366; 96372; 96376; J2790

== ENCOUNTER 2024-05-11 18:43 | Outpatient (REF) | payer MEDICAID, SELFPAY ==
--- OUTSIDE RECORDS SUMMARY | 2024-05-11 18:47 | XMS_ITS | CCD ---
Author Organization [facility] Inform ion Partnership [facility] Care Team Providers Care Diesel Machinist Name Role Phone JUN, DO GIGI MADRIGAL Attending Alejandro Palomares, DO DEE POND Primary Care Kaci HAYDEN, DO DEE POND Consulting Kaci BARAHONA, DO GIGI MADRIGAL Attending Alejandro Palomares, DO DEE POND Primary Care Unava ilJosh Sanchez Unavailable Unavailable Primary Care Provider CLAIR Triplett Attending Unavailable ANN AGUAYO Attending Unavailable CLAIR GALLARDO Attending Unavailable ANN AGUAYO Attending Unavailable ANN AGUAYO Attending Unavailable Medications Current Medications Medication Drug Class(es) Dates Sig (Normalized) Sig (Original) amoxicillin 875 mg oral tablet (1 source) Penicillin-class Antibacterial Start: 10-10-2022 take 1 tablet by mouth every twelve hours Amoxicillin 875 MG 1 tablet Orally every 12 hrs for 10 day(s) Sep, Active aspirin 81 mg delayed release oral tablet (2 sources) Platelet Aggregation Inhibitor, Nonsteroidal Anti-inflammatory Drug take 1 tablet by mouth in the morning aspirin 81 MG EC tablet Take 81 mg by mouth in the morning. 0 Active calcium carbonate 1250 mg chewable tablet (2 sources) calcium carbonat e ([place]) 1250 (500 Ca) MG chewable tablet Chew 1 tablet in the morning. 0 Active lidocaine hydrochloride 20 mg/ml mucous membrane [...] a day for 5 day(s) Sep, Active Vit-Fe Fumarate-FA ( VITAMIN PO) (2 sources) Vit-Fe Fumarate-FA ( VITAMIN PO) Take by mouth. 0 Active Completed/Discontinued Medications Medication Drug Class(es) Dates Sig (Normalized) Sig (Original) Dexamethasone (1 source) Corticosteroid Start: 10-10-2022 DEXAMETHASONE Sep, 10 mg Problems Problem Classification Problem Date Documented Da te Episodic/Chronic Other and delivery including normal (2 sources) care status; Translations: [Encounter for routine follow-up] 12-02-2023 Episodic Results Test Name Value Interpretation Reference Range Facil ity Blow Molding Machine Tender Cytology Reporton 2021 Blow Molding Machine Tender Cytology Report Clinical Information Specimen Collection Date: 12/03/2021 LMP: NA Type of specimen: Cervical/endocervical HPV testing is being performed at [facility] and will be reported out in [...] smears in the future. GY Disclaimer Alpha Blow Molding Machine Tender Disclaimer ANATOMICPATHOLOGY Normal [facility] Comment on above: Performed By: #### G YNCYTREP #### [facility] (DEFAULT) [address] [place] [address] HPV DNAon 12-05-2021 HPV DNA Scrn Negative Normal Negative [facility] Comment on above: Result Comment: The [...] of interfering substances. 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 WT. @ 6wk [...] of IBD D: contraception: NFP E: social: Ingalls son (Maryann); 3 older sisters; close friend [...] reviewed the patient?s medication list for medication interactions/contrain dications and/or for upcoming procedures: [yes or no] [...] Oral, q6 (more content not included)... Normal [facility] TSHon 12-03-2021 TSH Qn 2.36 m[IU]/L Normal 0.45-5.33 [facility] Comment on above: Result Comment: Refe [...] ? 5.18 uIU/mL Performed By: #### C [id number] #### [place] [id number] Gynecology Office/Clinic Not edith 05-26-2021 Gynecology Office/Clinic [...] 69.3 kg WT: 69.3 kg (Dosing) Assist: r bores General: Alert, in no acute distress. HEENT: [...] Daily, # 30 packets, 11 Refill(s), Pharmacy: [id number] Medical Decision Making Chronic conditions NOT treated during this visit that affected my overall medical decision making: [] Treatment plans discussed but not opted for at this time: [] Prescribed medication that requires intensive monitoring for toxicity: [] I have reviewed the patient?s medication list for medication interactions/contrain dications and/or for upcoming procedures: [yes or no] [...] Gigi Barahona DO 05/26/21 09:03 EDT Normal [facility] Gynecology Office/Clinic Not edith 04-23-2021 Gynecology Office/Clinic Note Chief Complaint Follow Up 11 days PPV, on 04/12/21 History of Present Illness Boy: Ganeshn3 weight:3360 grams Breast-feeding: Yes; without redness, incomplete [...] reviewed the patient?s medication list for medication interactions/contrain dications and/or for upcoming procedures: [yes or no] [...] (MRI) Electronically signed by Gigi Barahona DO 04/23/21 08:21 EDT Normal [facility] Inpatient Clinical Summaryon 04-14-2021 [place] [address] [place] [address] Clinical Summary Person Information Name: Erika Barnes Age: 31 Years : 1990 Sex: Female PCP: Dee Hayden DO Marital Status: Phone: PCP: [phone] Race: White Ethnicity: Not or Language: Sao [place]an Visit Id: Visit Reason: IUP Speciality: Acuity: PP Vag Enc Type: Inpatient Med Service: Gynecology-Obstetrics Arrival: 04/11/2021 15:09:36 Discharge: Dispo Type: Address: [address] [place] [address] Diagnosis: 1:Single live ; 2:37 weeks gestation [...] range between ( 27.2 and 40.8 ) Morrow Auto: 9.1 % -- Normal range between [...] range between ( 36.0 and 46.0 ) [place]row Absolute: 1.0 x10 MCH: 28.6 pg -- [...] (Not Given) Medications that have not changed [facility] [address] [place], [place] [id number], [phone] ferrous sulfate (ferrous sulfate 325 mg (65 mg elemental iron) oral delayed release tablet) 1 Tabs Oral (given by mouth) every day. Refills: 1. Last Dose: ____ ibuprofen (ibuprofen 800 mg oral tablet) 1 Tabs Oral (given by mouth) every 6 hours as needed as needed for pain. Refills: 0. Last Dose: ____ Other Medications multivitamin, ( Multivitamins with Folic Acid 0.4 mg oral tablet) 1 Tabs Oral (given by mouth) every day. Refills: 3. Last Dose: ____ Care Team Members: Attending Physician: Erika Yin DO Consulting Physician: Ronak ABBASI, Angel Roa Referring Physician: Follow up: With: Address: When: Jun ARGUELLO, Gigi Madrigal Within 1 to 2 weeks Comments: please call to make follow-up appointment within 1-2 weeks Type Location Start Finish State OB Visit - Established BV OBGYN - [place] 04/16/2021 12:15:00 04/16/2021 12:30:00 Confir (more content not included)... Normal [facility] CBC w/ Diffon 04-13-2021 Erythrocyte distribution width (RBC) [Ratio] 13.2 % Normal 11.6-14.8 [facility] Comment on above: Performed By: #### C BC ####[place] [address] Hematocrit (Bld) [Volume fraction] 29.3 % Low 36.0-46.0 [facility] Comment on above: Performed By: #### C BC ####[place] [address] Hemoglobin (Bld) [Mass/Vol] 10.1 g/dL Low 12.0-16.0 [facility] Comment on above: Performed By: #### C BC ####[place] [id number] MCH (RBC) [Entitic mass] 28.6 pg Normal 27.0-35.0 [facility] Comment on above: Performed By: #### C BC ####[place] [id number] MCHC 34.5 % Normal 31.0-37.0 [facility] Comment on above: Performed By: #### C BC ####[place] [address] MCV (RBC) [Entitic vol] 82.9 fL Normal 80.0-100.0 [facility] Comment on above: Performed By: #### C BC ####[place] [address] [place] [address] Platelet 223 x10*3/mcL Normal 150-350 [facility] Comment on above: Performed By: #### C BC ####[address] [address] Platelet mean volume (Bld) [Entitic vol] 8.4 fL Normal 6.7-10.6 [facility] Comment on above: Performed By: #### C BC ####[address] [address] RBC 3.53 x10*6/mcL Low 3.80-5.20 [facility] Comment on above: Performed By: #### C BC ####[address] [address] WBC 10.6 x10*3/mcL Normal 4.5-11.0 [facility] Comment on above: Performed By: #### C BC ####[address] [address] Diff Autoon 04-13-2021 Baso Absolute 0.0 x10*3/mcL Normal 0.0-0.2 [facility] Comment on above: Performed By: #### C D:[id number] #### [address] [address] Basophils/100 WBC (Bld) 0.4 % Normal 0.0-1.5 [facility] Comment on above: Performed By: #### C D:[id number] #### [address] [address] Eos Absolute 0.1 x10*3/mcL Normal 0.0-0.4 [facility] Comment on above: Performed By: #### C D:[id number] #### [address] [address] Eosinophils/100 WBC (Bld) 0.7 % Normal 0.0-5.4 [facility] Comment on above: Performed By: #### C [id number] #### [address] [address] Lymph Absolute 2.2 x10*3/mcL Normal 1.0-4.8 [facility] Comment on above: Performed By: #### C D:[id number] #### [address] [address] Lymphocytes/100 WBC (Bld) 20.4 % Low 27.2-40.8 [facility] Comment on above: Performed By: #### C D:[id number] #### [address] [address] [place]row Absolute 1.0 x10*3/mcL Normal 0.1-1.1 [facility] Comment on above: Performed By: #### C D:[id number] #### [address] [address] Monocytes/100 WBC (Bld) 9.1 % Normal 3.7-11.9 [facility] Comment on above: Performed By: #### C D:[id number] #### [address] [address] Neutro Absolute 7.4 x10*3/mcL Normal 1.8-7.7 [facility] Comment on above: Performed By: #### C D:[id number] #### [address] [address] Neutro Auto 69.4 % Normal 47.2-70.8 [facility] Comment on above: Performed By: #### C D:[id number] #### [address] [address] Progress Note - [facility] Progress Note - Generic Patient: Erika Barnes Age: 31 years Sex: Female : 1990 Associated Diagnoses: 37 weeks gestation of ; Delivery of Author: Mena Mitchell Results Review Labor/ Delivery Summary Results Review Problems (Active Problems Only) (SNOMED CT: 569376296, Onset: 07/21/20) Blood group A Rh(D) negative (SNOMED CT: 036166772, Onset: --) test positive (SNOMED CT: 987448783, Onset: --) Alopecia (SNOMED CT: 20662744, Onset: --) Delivery Summary A Membrane Status [...] No Cord Blood Sent to Lab: Yes Banking Services Officer: Alexus Maynard Maternal Delivery Complications: None Delivery Physician: Angel Simons MD Attending Physician: Erika Yin DO Information Risk Factors: None Complications: None Nuchal Cord Times: 2 Nuchal Cord Tension: Loose Nuchal Cord Intervention: Reduced prior to delivery Umbilical Cord Description: 3 vessel cord Infant Data Gender: Male ID Band Number: [id number] Outcome: Live Weight: 3.360 kg Score 1 [...] 04/13/2021. Discharge diagnosis: 37 weeks gestation of ([id number] Z3A.37, Discharge, Medical), Delivery of ([id number] O80, Discharge, Medical). Histories History History (3,0,0,3) # 1 Baby 1 Outcome Date: 08/18/2014 Outcome: Live Outcome or Result: Vaginal, Vacuum Assist Gender: Female Gest Age: 40 weeks Wt: 3941 g Hospital: [facility] Labor: -- Child's Name: -- Baby's Father: -- Anesthesia Type: Epidural # 2 Baby 1 Outcome Date: 12/01/2016 Outcome: Live Outcome or Result: Vaginal Gender: Female Gest Age: 39 weeks Wt: 2948 g Hospital: [facility] Labor: -- Child's Name: Martha Baby's Father: -- Complications: None # 3 Baby 1 Outcome Date: 09/28/2018 Outcome: Live Outcome or Result: Vaginal Gender: Female Gest Age: 39 weeks 2 days Wt: 3410 g Hospital: [facility] Labor: -- Child's Name: -- Baby's Father: [...] by Mena Mitchell 04/13/21 08:41 EDT Normal [facility] Progress Note - Generic Patient: Erika Barnes Age: 31 years Sex: Female : 1990 Associated Diagnoses: None Author: Mena Mitchell Basic Information G 4 P 3, Boy, 7 # 3 oz, positive Rh negative, Needs MMR and doing well. Coping as expected Breast feeding, infant latching well no breast issues bowel and bladder normal Moderate vaginal bleeding Perineal pain Review of Systems Constitutional: Negative. Eye: Negative. Ear/Nose/Mouth/Throat : Negative. Respiratory: Negative. Cardiovascular: Negative. Breast: Negative. Gastrointestinal: Negative. Genitourinary: Negative. Hematology/Lymphatics : Negative. Gynecologic: Perineal pain. Endocrine/Renal: Negative. Immunologic: Negative. Musculoskeletal: Negative. Integumentary: Negative. Neurologic: Negative. Psychiatric: Negative. All other systems are negative Health Status Problem list: Problems (Active Problems Only) (SNOMED CT: 776251771, Onset: 07/21/20) Blood group A Rh(D) negative (SNOMED CT: 800160704, Onset: --) test positive (SNOMED CT: 412741157, Onset: --) Alopecia (SNOMED CT: 39793983, Onset: --) single live Physical Examination VS/Measurements Vital Signs (last 24 hrs) Last Charted Temp Oral 37 degC (APR 13 06:12) Resp Rate 16 br/min (APR 13:12) SBP 101 mmHg (APR 13:12) DBP 66 mmHg (APR 13:) Review / Management Results review: Labs (Last four charted values) WBC 10.6 (APR 13) H 11.3 (APR 11) Hgb L 10.1 (APR 13) L 11.7 (APR 11) Hct L 29.3 (APR 13) L 34.2 (APR 11) Plt 223 (APR 13) 282 (APR 11) . Impression and Plan Condition: Stable. Plan Routine care. Course: Progressing as expected, Discharge today. Electronically signed by Mena Wills 04/13/21 08:36 EDT General: Alert and oriented x 3, well nourished, no acute distress, Psychiatric: Cooperative, appropriate mood and affect Uterus: U-1, Firm Skin: Dry and intact Electronically signed by Kane WILLSMena [place] 04/13/21 10:41 EDT Normal [facility] ABIDon 04-12-2021 ABID Positive [facility] Comment on above: Performed By: #### C D:[id number] #### [address] [address] ABO/Rhon 04-12-2021 ABO/Rh ABO/Rh: A NEG [facility] Comment on above: Performed By: #### C D:[id number] #### [address] [address] ABSC Autoon 04-12-2021 ABSC Auto Positive [facility] Comment on above: Performed By: #### C D:[id number] #### [address] [address] Screenon 04-12-2021 Screen Screen: Negative FS Pos Ctl: Positive FS Neg Ctl: Negative [facility] Comment on above: Performed By: #### C D:[id number] #### [address] [address] Obstetrics Progress Noteon 0 04-12-2021 Obstetrics Progress Note Patient: Erika Barnes [facility]: [id number] Age: 31 years Sex: Female : 1990 Associated Diagnoses: None Author: Angel Simons MD Basic Information Gestational Age: Gestational Age (EGA) [...] Review: Problems (Active Problems Only) (SNOMED CT: 053437909, Onset: 07/21/20) Blood group A Rh(D) negative (SNOMED CT: 357572724, Onset: --) test positive (SNOMED CT: 275464298, Onset: --) Alopecia (SNOMED CT: 20939747, Onset: --) Delivery Summary A Membrane Status [...] No Cord Blood Sent to Lab: Yes Banking Services Officer: Alexus Maynard Maternal Delivery Complications: None Delivery Physician: Angel Simons MD Attending Physician: Erika Yin DO Information Risk Factors: None Complications: None Nuchal Cord Times: 2 Nuchal Cord Tension: Loose Nuchal Cord Intervention: Reduced prior to delivery Umbilical Cord Description: 3 vessel cord Infant Data Gender: Male ID Band Number: [id number] Outcome: Live Weight: 3.360 kg Score 1 Minute: 9 Score 5 Minute: 9 Score 10 Minute: 9 . Impression and Plan Erika is a 31-year-old 4 para 3003 female at 37+ weeks estimated gestational age (EDC 05/17/2021) who presented to the labor and delivery unit of [facility] on 04/11/2021 with the complaint of [...] initiated. Contractions persisted and in the very bottle labeler hours of 04/12/2021 amniotomy performed for clear [...] approximately 400 cc. Both Erika and her infant son tolerated delivery well. scores for the were assigned is 9, 9 and 9 at 1, 5 and 10 minutes respectively. Electronically signed by Angel Simons MD 04/13/21 06:58 EDT Normal [facility] .Fentanyl Scrn with Conf,Uro n 04-11-2021 Ur Fentanyl Scrn w/Confirm Negative Normal NEG <1.0 [facility] Comment on above: Performed By: #### C D:[id number] #### [facility] [address] [place] [address] Ur Fentanyl Scrn w/Confirm Qnt 0.00 ng/mL Normal <=0.99 [facility] Comment on above: Performed By: #### C D:[id number] #### [facility] [address] [place] [address] CBC w/ Diffon 04-11-2021 Erythrocyte distribution width (RBC) [Ratio] 13.4 % Normal 11.6-14.8 [facility] Comment on above: Performed By: #### C D:[id number] #### [address] [address] Hematocrit (Bld) [Volume fraction] 34.2 % Low 36.0-46.0 [facility] Comment on above: Performed By: #### C D:[id number] #### [address] [address] Hemoglobin (Bld) [Mass/Vol] 11.7 g/dL Low 12.0-16.0 [facility] Comment on above: Performed By: #### C D:[id number] #### [address] [address] MCH (RBC) [Entitic mass] 28.3 pg Normal 27.0-35.0 [facility] Comment on above: Performed By: #### C D:[id number] #### [address] [address] MCHC 34.3 % Normal 31.0-37.0 [facility] Comment on above: Performed By: #### C D:[id number] #### [address] [address] MCV (RBC) [Entitic vol] 82.5 fL Normal 80.0-100.0 [facility] Comment on above: Performed By: #### C D:[id number] #### [address] [address] Platelet 282 x10*3/mcL Normal 150-350 [facility] Comment on above: Performed By: #### C D:[id number] #### [address] [address] Platelet mean volume (Bld) [Entitic vol] 8.6 fL Normal 6.7-10.6 [facility] Comment on above: Performed By: #### C D:[id number] #### [address] [address] RBC 4.14 x10*6/mcL Normal 3.80-5.20 [facility] Comment on above: Performed By: #### C D:[id number] #### [address] [address] WBC 11.3 x10*3/mcL High 4.5-11.0 [facility] Comment on above: Performed By: #### C D:[id number] #### [address] [address] Diff Autoon 04-11-2021 Baso Absolute 0.0 x10*3/mcL Normal 0.0-0.2 [facility] Comment on above: Performed By: #### . Automated Diff #### [address] [address] Basophils/100 WBC (Bld) 0.4 % Normal 0.0-1.5 [facility] Comment on above: Performed By: #### . Automated Diff #### [address] [address] Eos Absolute 0.1 x10*3/mcL Normal 0.0-0.4 [facility] Comment on above: Performed By: #### . Automated Diff #### [address] [address] Eosinophils/100 WBC (Bld) 0.5 % Normal 0.0-5.4 [facility] Comment on above: Performed By: #### . Automated Diff #### [address] [address] Lymph Absolute 2.2 x10*3/mcL Normal 1.0-4.8 [facility] Comment on above: Performed By: #### . Automated Diff #### [address] [address] Lymphocytes/100 WBC (Bld) 19.5 % Low 27.2-40.8 [facility] Comment on above: Performed By: #### . Automated Diff #### [address] [address] [place]row Absolute 1.1 x10*3/mcL Normal 0.1-1.1 [facility] Comment on above: Performed By: #### . Automated Diff #### [address] [address] Monocytes/100 WBC (Bld) 9.5 % Normal 3.7-11.9 [facility] Comment on above: Performed By: #### . Automated Diff #### [address] [address] Neutro Absolute 7.9 x10*3/mcL High 1.8-7.7 [facility] Comment on above: Performed By: #### . Automated Diff #### [address] [address] Neutro Auto 70.1 % Normal 47.2-70.8 [facility] Comment on above: Performed By: #### . Automated Diff #### [address] [address] UDS OB/Con 04-11-2021 Creatinine [Mass/Vol] 90.3 mg/dL Normal [facility] Comment on above: Performed By: #### C D:[id number] #### [address] [address] Ur Amph Scrn w/Conf Negative Normal NEG = <1000 [facility] Comment on above: Performed By: #### C D:[id number] #### [address] [address] Ur Yoko Scrn w/Conf Negative Normal NEG = <200 [facility] Comment on above: Performed By: #### C D:[id number] #### [address] [address] Ur Benzodia Scrn w/Conf Negative Normal NEG = <200 [facility] Comment on above: Performed By: #### C D:[id number] #### [address] [address] Ur Cannab Scrn w/Conf Negative Normal NEG = <50 [facility] Comment on above: Performed By: #### C D:[id number] #### [address] [address] Ur Cocaine Scrn w/Conf Negative Normal NEG = <300 [facility] Comment on above: Performed By: #### C D:[id number] #### [address] [address] Ur Methadone Scrn w/Conf Negative Normal NEG = <300 [facility] Comment on above: Performed By: #### C D:[id number] #### [address] [address] Ur Opiate Scrn w/Conf Negative Normal NEG = <300 [facility] Comment on above: Performed By: #### C D:[id number] #### [address] [address] Ur Oxy Screen w/Conf Negative Normal NEG = <100 [facility] Comment on above: Performed By: #### C D:[id number] #### [address] [address] Ur Oxy Scrn Qnt w/Confirm 4 ng/mL Normal <=99 [facility] Comment on above: Performed By: #### C D:[id number] #### [address] [address] Ur PCP Scrn w/Conf Negative Normal NEG = <25 [facility] Comment on above: Performed By: #### C D:[id number] #### [address] [address] UA pH 7.0 Normal 4.5 - 7.8 [facility] Comment on above: Performed By: #### C D:[id number] #### [address] [address] UA Spec Grav 1.015 Normal 1.003-1.035 [facility] Comment on above: Performed By: #### C D:[id number] #### [address] [address] Solution Designer CORTES QC OK Yes Normal [facility] Comment on above: Performed By: #### C D:[id number] #### [address] [address] Ur Buprenorphine Scrn w/Conf Negative Normal NEG = <10 [facility] Comment on above: Performed By: #### C D:[id number] #### [address] [address] Obstetrics Office/Clinic Not edith 04-09-2021 Obstetrics Office/Clinic Note Billing based on complexity of care not time spent Electronically signed by Jun Gigi ARGUELLO 04/10/21 18:35 EDT Normal [facility] Chlam & GC, DNAon 04-02-2021 Chlamydia, DNA Negative Normal Negative [facility] Comment on above: Result Comment: The [...] to the clinician. Performed By: #### C D:[id number] #### [address] [address] Gonorrhea, DNA Negative Normal Negative [facility] Comment on above: Result Comment: The [...] to the clinician. Performed By: #### C D:[id number] #### [address] [address] Grp B PCRon 03-29-2021 Allergic to Penicillin? Unknown Normal [facility] Comment on above: Performed By: #### C D:[id number] #### [place] [id number] Group B Strep PCR Negative Normal Negative [facility] Comment on above: Result Comment: The Natero GBS Assay is an automated nucleic acid [...] clindamycin is noted. Performed By: #### C D:[id number] #### [place] [address] Inpatient Clinical Summaryon 03-27-2021 [place] [address] [place] [address] Clinical Summary Person Information Name: Erika Barnes Age: 31 Years : 1990 Sex: Female PCP: Dee Hayden DO Marital Status: Phone: PCP: [phone] Race: White Ethnicity: Not or Language: [place]an Visit Id: Visit Reason: contractions Speciality: Acuity: Ante Enc Type: Outpatient in a Bed Med Service: Gynecology-Obstetrics Arrival: 03/27/2021 17:47:20 Discharge: Dispo Type: Address: [address] [place] [address] Diagnosis: Discharged To: Home Treatments: Devices/Equipment: Professional [...] mouth) every day. Refills: 3. Last Dose: ____ Care Team Members: Attending Physician: Gigi Barahona [...] Visit - Established BV OBGYN - [place] 04/23/2021 07:45:00 04/23/2021 08:00:00 Confirmed OB Non Stress Test BV OBTHERESA [place] 04/29/2021 13:00:00 04/29/2021 13:45:00 Confirmed Ultrasound Visit 40 BV MARY [place] 04/29/2021 13:30:00 04/29/2021 14:10:00 Confirmed OB Visit - Established BV OBTHERESA [place] 04/29/2021 14:15:00 04/29/2021 14:30:00 Confirmed SP Established Patient Visit 15 BV OBTHERESA [facility] 05/12/2021 10:00:00 05/12/2021 10:15:00 Confirmed Normal [facility] Progress Note-Nurseon 2020 Progress Note-Nurse Patient: Erika Barnes Age: 31 years Sex: Female : [...] apart. Denies VB or LOF. Rating pain 10. 03/27/2021 18:00 EDT Temperature Temporal Artery 36.0 degC LOW Heart Rate Monitored 86 bpm Respiratory Rate 16 br/min Systolic Blood Pressure 102 mmHg Diastolic Blood Pressure 65 mmHg Cardiovascular Symptoms None Nail Bed Color [place] Club[place] Present No Capillary Refill Less than [...] of Spe (more content not included)... Normal [facility] OB Follow Upon 03-06-2021 OB Follow [...] Electronically Signed in Other Vendor System) Normal [facility] Obstetrics Office/Clinic Not edith 03-05-2021 Obstetrics Office/Clinic Note Billing dictated by medical decision making, complexity of care ... Not time spent with patient Electronically signed by Gigi Barahona DO 03/05/21 14:15 EDT Normal [facility] ABSC Autoon 02-18-2021 ABSC Auto Negative Normal [facility] Comment on above: Performed By: #### C [id number] #### [address] [address] Rh Onlyon 02-18-2021 Rh Only Negative Normal [facility] Comment on above: Performed By: #### C [id number] #### [address] [address] RhIG Requeston 02-18-2021 RhIG Request History Check: Done RhIg Request Reason: Normal [facility] Comment on above: Performed By: #### R HOANTE ####[address] [address] CBCon 02-05-2021 Erythrocyte distribution width (RBC) [Ratio] 13.4 % Normal 11.6-14.8 [facility] Comment on above: Performed By: #### C BCI #### [address] [address] Hematocrit (Bld) [Volume fraction] 37.1 % Normal 36.0-46.0 [facility] Comment on above: Performed By: #### C BCI #### [address] [address] Hemoglobin (Bld) [Mass/Vol] 12.5 g/dL Normal 12.0-16.0 [facility] Comment on above: Performed By: #### C BCI #### [address] [address] MCH (RBC) [Entitic mass] 31.2 pg Normal 27.0-35.0 [facility] Comment on above: Performed By: #### C BCI #### [place] [id number] MCHC 33.8 % Normal 31.0-37.0 [facility] Comment on above: Performed By: #### C BCI #### [place] [id number] MCV (RBC) [Entitic vol] 92.3 fL Normal 80.0-100.0 [facility] Comment on above: Performed By: #### C BCI #### [place] [id number] Platelet 250 x10*3/mcL Normal 150-350 [facility] Comment on above: Performed By: #### C BCI #### [place] [id number] Platelet mean volume (Bld) [Entitic vol] 8.5 fL Normal 6.7-10.6 [facility] Comment on above: Performed By: #### C BCI #### [address] [address] RBC 4.02 x10*6/mcL Normal 3.80-5.20 [facility] Comment on above: Performed By: #### C BCI #### [address] [address] WBC 8.7 x10*3/mcL Normal 4.5-11.0 [facility] Comment on above: Performed By: #### C BCI #### [place] [id number] Gest Diab Scn (ACOG)on 02-05 History of diabetes or gastric bypass? No Normal [facility] Comment on above: Performed By: #### C [id number] #### [address] [address] Glucose [Mass/Vol] 70 mg/dL Normal 70-134 [facility] Comment on above: Result Comment: Acco rding to the ADA, a glucose threshold of > 139 mg/dL after a 50-gram load identifies approximately 80% of women with gestational diabetes mellitus, while the sensitivity is further increased to approximately 90% by a threshold of >129 mg/dL. Performed By: #### C [id number] #### [address] [address] HIV1/2 Ab,Ag Scnon 1 HIV-1/2 Ab,Ag 0.12 Normal [facility] Comment on above: Performed By: #### C [id number] #### [address] [address] HIV-1/2 Ab,Ag Interp Normal Negative [facility] Comment on above: Result Comment: N egative Negative Performed By: #### C [id number] #### [address] [address] Obstetrics Office/Clinic Not edith 02-05-2021 Obstetrics Office/Clinic Note I personally spent 41 minutes caring for patient today Electronically signed by Gigi Barahona DO 02/05/21 08:45 EDT Normal [facility] US OB > 14 Weekson 1 US OB > 14 Weeks INDICATION: anatomical survey [...] Electronically Signed in Other Vendor System) Normal [facility] Vital Signs Date Time Vital Sign Value Performing Clinician Faci lity 12-07-2023 09:34-0500 Body mass index (BMI) [Ratio] 24.18 kg/m2 Clair ACEVES Work Phone: [facility] 12-07-2023 09:34-0500 Body weight 72.12 kg Clair ACEVES Work Phone: [facility] 12-07-2023 09:34-0500 Diastolic blood pressure 72 mm[Hg] Clair ACEVES Work Phone: [facility] 12-07-2023 09:34-0500 Systolic blood pressure 118 mm[Hg] Clair ACEVES Work Phone: [facility] Healthcare Encounters Encounter Date Encounter Type Care Provider Facility Start: 12-07-2023 End: 12-07-2023 ambulatory CLAIR GALLARDO Not Available Start: 12-07-2023 End: 12-07-2023 care visit Clair ACEVES Work Phone: [facility] Comment on above: 6 weeks f ollow-up Start: 10-19-2023 End: 10-19-2023 ambulatory ANN TIFFANIE Not Available Start: 10-12-2023 End: 10-12-2023 ambulatory ANN TIFFANIE Not Available Start: 10-05-2023 End: 10-05-2023 ambulatory CLAIR TIMMONSEY Not Available Start: 09-21-2023 End: 09-21-2023 ambulatory ANN TIFFANIE Not Available Start: 10-10-2022 End: 10-10-2022 ambulatory Josh Cody Other [employer] Other Start: 10-10-2022 Telephone encounter Josh [facility] [address] Start: 12-03-2021 End: 12-04-2021 ambulatory DO [facility] Facility:[facility] Start: 02-18-2021 End: 02-18-2021 ambulatory DO [facility] Facility:[facility] Plan of Treatment Date Care Activity Detail Author Start: 05-11-2024 End: 05-11-2024 Patient encounter procedure 05/11/2024 8:30 AM EDT Office Visit [facility] [address] [place] [id number] Ann Aguayo, DO [address] [place] [address] [facility] Payers Date Payer Category Payer Medicaid [facility] BCBS MEDICA[place] [id number] 2022-Present [address] [place] [address] [id number] 2022 Medicaid [id number] 2021 Unknown 1990 Unknown [id number] 1990 Unknown [id number] 1988 Unknown [id number] 1988 Unknown [id number] 1988 Unknown [id number] 1988 Unknown [id number] 1988 Unknown [id number] Unknown [id number] Social History Date Type Detail Facility Unknown if ever smoked [facility] [employer] Other Start: 12-07-2023 Sex Assigned At N [facility] [employer] Other Start: 04-06-2023 Tobacco smoking status NHIS Never smoked tobacco [facility] Start: 04-06-2023 Tobacco use and exposure Smokeless tobacco non-user [facility] Start: 12-07-2023 Alcohol intake Lifetime non-d josé (finding) [facility] Start: 12-07-2023 History of Social function [facility] Start: 1990 Sex Assigned At Not on file N [facility] Clinical Notes 12-12-2020 to 12-07-2023 YOLA Rodríguez - 12/07/2023 9:20 AM EST Note Date & Type Note Facility 12-07-2023 History of Present illness Narrative Reason for Appointment: Patient ID: Erika Barnes is a 33 y.o. female who presents for Follow-up Patient presents today for Post Follow Up appointment. Current Medications: has a current medication list which includes the following prescription(s): aspirin, calcium carbonate, and vit-fe fumarate-fa. Medical History: Active Ambulatory Problems Diagnosis Date Noted No Active Ambulatory Problems Resolved Ambulatory Problems Diagnosis Date Noted No Resolved Ambulatory Problems Past Medical History: Diagnosis Date Pap smear for cervical cancer screening 05/04/2023 Family History Problem Relation Name Age of Onset No Known Problems Mother No Known Problems Father No Known Problems Brother No Known Problems Daughter No Known Problems Daughter No Known Problems Son Social History Tobacco Use Smoking status: Never Smokeless tobacco: Never Vaping Use Vaping Use: Not on file Substance Use Topics Alcohol use: Never Drug use: Never History reviewed. No pertinent surgical history. No Known Allergies Review of Systems: Review of Systems Constitutional: Negative. HENT: Negative. Eyes: Negative. Respiratory: Negative. Cardiovascular: Negative. Gastrointestinal: Negative. Genitourinary: Negative. Musculoskeletal: Negative. Skin: Negative. Neurological: Negative. All other systems reviewed and are negative. Hematological: Negative. Endocrine: Negative. Allergic/Immunologic: Negative. Objective Physical Exam Constitutional: Appearance: Normal appearance. She is normal weight. Genitourinary: Vaginal exam comments: Episiotomy healed well. HENT: Head: Normocephalic. Cardiovascular: Rate and Rhythm: Normal rate. Pulses: Normal pulses. Pulmonary: Effort: Pulmonary effort is normal. Breath sounds: Normal breath sounds. Abdominal: Palpations: Abdomen is soft. Musculoskeletal: General: Normal range of motion. Neurological: General: No focal deficit present. Mental Status: She is alert and oriented to person, place, and time. Psychiatric: Mood and Affect: Mood normal. Behavior: Behavior normal. Thought Content: Thought content normal. Judgment: Judgment normal. Vitals and nursing note reviewed. Vitals: Estimated body mass index is 24.18 kg/m as calculated from the following: Height as of 04/06/23: 5' 8 . Weight as of this encounter: 159 lb. BP: 118/72 Patient's last menstrual period was 01/23/2023. Assessment/Plan Encounter Diagnosis Name Primary? 6 weeks follow-up Patient is doing well but has complaints of .... Patient presents today for 6 week visit. Patient is s/p Vaginal delivery. Patient states depression but denies suicidal and homicidal ideations. All options were discussed with the patient regarding control and patient desires none at this time. Follow Up: Patient is to return for annual unless needed otherwise. Documented by YOLA Rodríguez on behalf of: YOLA Rodríguez documented in this encounter [facility] 12-03-2021 Note Patient Education Ma terials Name: [...] only feels good, it?s a great stress buckle gluer. Resources ?Your cardiac rehabilitation program and local hospital or clinic ?[employer] Association of Cardiovascular and Pulmonary Rehabilitation www.aacvpr.org ?[employer] Diabetes Association [phone] www.diabetes.org ?[employer] Heart Association 972-572-8922 heart.org ?Your Guide to Lowering Your Blood Pressure with DASH?www.nhlbi.nih.gov/health/ public/heart/hbp/dash ?National Heart, Lung, and Blood [place] [phone] www.nhlbi.nih.org ?WomenHeart: The National Coalition for Women with Heart Disease 743-460-8973 www.womenheart.org ?The member services department of your health insurance plan ?The medical benefits department, human resources department, or wellness center at your workplace ?An Internet or library search on heart disease, cardiovascular disease, coronary artery disease, peripheral artery disease, or stroke ? [phone] [place] [address], [place] [id number]. All rights reserved. This information is not [...] breast self-examination (BSE). These experts include the [employer] and the [place] Congress of Obstetricians and Gynecologists. Some experts [...] This means they are not cancer. ? 2650-9[address] [employer] [address] [place] [address], [place] [id number]. All rights reserved. This information is not [...] (mg) per serving (more content not included)... [facility] 05-20-2021 Note Patient Education Ma terials Name: Erika Barnes Current Date: 05/20/2021 15:00:53 [place] : 1990 The following sheet(s) are the Patient Education Leaflets for Erika Barnes Adapted Physical Education Teacher For New Mothers: Staying Fit After Delivery [...] for 5 seconds. Repeat 5 times. ? 8597-5977 [employer]. [address] [place] [address], [place] [address]. All rights reserved. This information is not intended as a substitute for professional medical care. Always follow your healthcare professional's instructions. [facility] 04-16-2021 Note Patient Education Ma terials Name: Erika Barnes Current Date: 04/16/2021 10:53:59 [place] : 1990 [facility]: [id number] The following sheet(s) are the Patient Education [...] drainage, or bleeding from your incision. ? 1048-[address] [employer] [place] [address]. All rights reserved. This information is not intended as a substitute for professional medical care. Always follow your healthcare professional's instructions. [facility] 04-11-2021 Note Chief Complaint R/O Labor History of Present Illness Erika is a 31-year-old 4 para 3003 female at 37 weeks 5 days EGA (EDC 05/17/2021) who presented to the labor and delivery unit of [facility] on 04/11/2021 with the complaint of [...] Auto 19.5 % (Low) 04/11/2021 18:41 EDT Morrow Auto 9.5 % 04/11/2021 18:41 EDT Eos Auto 0.5 % 04/11/2021 18:41 EDT Basophil Auto 0.4 % 04/11/2021 18:41 EDT Neutro Absolute 7.9 x10 Lymph Absolute 2.2 x10 Morrow Absolute 1.1 x10 Eos Absolute 0.1 x10 [...] Scrn w/Conf Negative (more content not included)... [facility] 03-27-2021 Note Pt answered no to all Covid-19 screening questions Electronically signed by Jasmin Greene 03/27/21 18:25 EDT [facility] 03-27-2021 Note Patient Education Ma terials Name: Erika Barnes Current Date: 03/27/2021 11:45:56 [place] 1990 The following sheet(s) are the Patient Education Leaflets for Erika Barnes Adapted Physical Education Teacher and Childbirth: What to Bring to the [...] and headphones ?Camera with new batteries or equipment operat0r ?Coins for vending machines ?Telephone numbers of people to call after the ?Cell phone and equipment operat0r ?Insurance information and any other paperwork needed for your hospital stay ?A list of baby names you are considering ?An , rear-facing car seat for bringing home your baby (this is required by law) Add anything else that you don?t want to forget: ? 6857-[address] [place] [address]. All rights reserved. This information is not intended as a substitute for professional medical care. Always follow your healthcare professional's instructions. [facility] 03-13-2021 Note Patient Education Ma terials Name: Erika Barnes Current Date: 03/13/2021 11:34:32 [facility] 1990 The following sheet(s) are the Patient Education Leaflets for Lindsaygeorgina Erikahetal Rosales Adapted Physical Education Teacher Back Pain During : Moving Safely Learning [...] helps take weight off your back. ? 8350-3441 [employer]. [address] [place] [address], [place] [address]. All rights reserved. This information is not intended as a substitute for professional medical care. Always follow your healthcare professional's instructions. [facility] 02-26-2021 Note Patient Education Ma terials Name: Erika Barnes Current Date: 02/26/2021 16:08:06 [place] : 1990 The following sheet(s) are the Patient Education Leaflets for Erika Barnes Adapted Physical Education Teacher Back Pain During : Positioning Yourself When [...] knees, and keep your back straight. ? 2824-7356 [employer] [address] [place] [address]. All rights reserved. This information is not intended as a substitute for professional medical care. Always follow your healthcare professional's instructions. [facility] 02-13-2021 Note Patient Education Ma terials Name: Erika Barnes Connie Current Date: 02/13/2021 09:37:26 [place] : 1990 The following sheet(s) are the Patient Education Leaflets for Erika Barnes Adapted Physical Education Teacher : Your Third Trimester Changes As the [...] In other words, any day now... ? 4900-9973 [employer] [address] [place] [address]. All rights reserved. This information is not intended as a substitute for professional medical care. Always follow your healthcare professional's instructions. [facility] 01-29-2021 Note Patient Education Ma terials Name: Erika Barnes Current Date: 01/29/2021 08:49:10 [place] : 1990 The following sheet(s) are the Patient Education Leaflets for Erika Barnes ED/Trauma Kick Counts It?s normal to worry [...] felt your baby move all day. ? 7923-2023 [employer] [address] [place] [address]. All rights reserved. This information is not intended as a substitute for professional medical care. Always follow your healthcare professional's instructions. [facility] 01-02-2021 Note Patient Education Ma terials Name: Erika Barnes Current Date: 01/02/2021 11:14:04 [place] : 1990 The following sheet(s) are the Patient Education Leaflets for Erika Barnes Adapted Physical Education Teacher : More Common Questions On this sheet, [...] Can I paint my nails? Yes. Nail chadian is not thought to be dangerous during . Just be careful about breathing the fumes. Keep windows open or use a fan. However, long-term exposure to the solvents used to remove nail chadian may not be safe. If you work [...] been lifting weights, don?t start now. ? 3916-1653 [employer]. [address] [place] [address]. All rights reserved. This information is not intended as a substitute for professional medical care. Always follow your healthcare professional's instructions. [facility] 12-12-2020 Note Patient Education Ma terials Name: Erika Barnes Current Date: 12/12/2020 08:44:59 [place] : 1990 The following sheet(s) are the Patient Education Leaflets for Erika Barnes Adapted Physical Education Teacher : Common Questions There are plenty of [...] Which medicines are safe? No prescription or [id number] medicine is safe for everyone all of [...] bring the load nearer. ?Get a good sales project administrator. Test the weight of the load. ?Tighten [...] healthcare provider before taking any medicines. ? 5040-1527 [employer] [address] [place] [address]. All rights reserved. This information is not intended as a substitute for professional medical care. Always follow your healthcare professional's instructions. [facility] Evaluation note No Information [facility] [employer] Other Evaluation note Diagnosis 6 weeks follow-up documented in this encounter [facility] Summary Purpose Family History No Family History Records FoundNo Family History Records Found Advance Directives No Advanced Directives Records FoundNo Advanced Directives Records Found Additional Source Comments INFORMATION SOURCE (unrecogn ized section and content) DATE CREATED AUTHOR 12/06/2021 [facility] DATE CREATED AUTHOR AUTHOR'S ORGANIZ ATION 12/08/2023 [facility] [place] REASON FOR VISIT (unrecogniz ed section and content) Reason Comments Follow-up FOR RECORDS PERTAINING TO PATIENTS WHO ARE [...] BE BASED ON THE PRIMARY CLINICAL RECORDS. [employer] provides no warranty or guarantee of the accuracy or completeness of information in this document.
[2024-05-16 09:11] LABS: Age Gdln ACOG Testing Note (.); HPV Aptima Negative (Negative); IGP, Aptima HPV, rfx 16/18,45 Note (.)
== END 2024-05-11 18:44 | disposition home or self-care (01) ==
LOC: LAB 18:43
PROVIDERS: Visit Provider Obstetrics & Gynecology
DX: Z01.419 Encounter for gynecological examination (general) (routine) without abnormal findings (principal)
CPT/HCPCS: 87624; 88175

== ENCOUNTER 2024-10-29 14:35 | Emergency (ER) | payer MEDICAID, SELFPAY ==
[2024-10-29 14:38] VITALS: BP 106/76; PULSE 76; TEMP 36.8; O2SAT 100; BMI 22.8
--- NOTE | 2024-10-29 14:49 | PC.NURSE ---
large red bumps to left side neck, some do not land in a straight line and are not close together, no clusters noted to neck, light red bumps to mid upper back. pt is alert and appropriate and ambulates with no problems
--- NOTE | 2024-10-29 14:59 | ED.GENADUL1 ---
HPI HPI - General Adult General Chief complaint: Skin/Abscess/Foreign Body Stated complaint: NUROLOGICAL SYMPTOMS Time Seen by Provider: 10/29/24 14:45 Source: patient Mode of arrival: walk-in History of Present Illness HPI narrative: pt developed painful rash along the left posterior neck two days ago that has now migrated to the left face. She was diagnosed via telehealth visit with herpes zoster and started on valacyclovir, of which she has taken three doses. She has pain and tingling on parts of her face, dry mouth and some dizziness. She wonders if these symptoms are all related. Related Data Home Medications ?Medication ?Instructions ?Recorded ?Confirmed vits,calcium 21-iron fum 1 tab PO DAILY 09/23/23 10/20/23 14 mg iron-folic acid 400 mcg tablet ( Complete) acetaminophen 325 mg tablet (Pain 650 mg PO Q6H PRN pain 09/27/23 10/20/23 Relief (acetaminophen)) Previous Rx's ?Medication ?Instructions ?Recorded methylprednisolone 4 mg tablets in 4 mg PO DAILY #21 ea 10/29/24 a dose pack (Medrol (Jono)) nabumetone 750 mg tablet 750 mg PO BID PRN pain #14 tabs 10/29/24 Allergies Allergy/AdvReac Type Severity Reaction Status Date / Time No Known Drug Allergies Allergy Verified 04/11/23 20:05 Opioid HPI Opioid Management Most Recent Opioid Data: Last Pain Scale 1 10/22/23 09:00 10/22/23 Ur Phencyclidine Scrn Negative (NEGATIVE) 10/20/23 09:30 10/20/23 [facility] Medical History (Updated 10/29/24 @ 15:03 by Erick Restrepo) Normal vaginal delivery ?O80 - Encounter for full-term uncomplicated delivery (ICD-10) Social History Smoking status: Never smoker Little interest or pleasure in doing things: not at all Feeling down, depressed, or hopeless: not at all Exam Narrative Exam Narrative: Nurses notes and vital signs reviewed and patient is not hypoxic. afebrile General: Well-appearing and in no apparent distress. Skin: Warm, dry, no pallor noted. Herpes zoster rash to the left posterior neck with lesions along the left lateral scalp and several left facial lesions Head: Normocephalic, atraumatic. Neck: Supple, no cervical lymphadenopathy. Eye: Pupils are equal, round and EOMI. No scleral icterus. Ears, Nose, Mouth, and Throat: Oral mucosa is moist Cardiovascular: Regular Rate and Rhythm without murmur, gallop or rub. Respiratory: No accessory muscle use or respiratory distress. Lungs are clear to auscultation, no wheezing, rales or rhonchi Back: No midline thoracic vertebral tenderness. No lesions Musculoskeletal: normal ROM GI: Abdomen is soft, non-distended. Normal bowel sounds. No tenderness to palpation. No rebound, guarding, or rigidity noted. Neurological: A&O x4. No cranial nerve dysfunction observed. No truncal ataxia. Moves all extremities. Sensation intact. Psychiatric: Cooperative and interactive. Normal mood and affect. Constitutional Vital Signs, click to edit/add: Last Vital Signs Temp 98.2 F 10/29/24 14:38 Pulse 76 10/29/24 14:38 Resp 16 10/29/24 14:38 BP 106/76 10/29/24 14:38 Pulse Ox 100 10/29/24 14:38 O2 Del Method Room Air 10/29/24 14:38 Course Vital Signs Vital signs: Vital Signs Temperature 98.2 F 10/29/24 14:38 Pulse Rate 76 10/29/24 14:38 Respiratory Rate 16 10/29/24 14:38 Blood Pressure 106/76 10/29/24 14:38 Pulse Oximetry 100 10/29/24 14:38 Oxygen Delivery Method Room Air 10/29/24 14:38 Temperature 98.2 F 10/29/24 14:38 Pulse Rate 76 10/29/24 14:38 Respiratory Rate 16 10/29/24 14:38 Blood Pressure 106/76 10/29/24 14:38 Pulse Oximetry 100 10/29/24 14:38 Oxygen Delivery Method Room Air 10/29/24 14:38 Medical Decision Making MDM Narrative Medical decision making narrative: Patient and I discussed her symptoms and her diagnosis, all is consistent with her herpes zoster infection. I prescribed Medrol Dosepak and Relafen for her to take at home. PCP follow-up recommended as needed or return to the emergency department if she worsens Discharge Plan Discharge Chief Complaint: Skin/Abscess/Foreign Body Clinical Impression: Herpes zoster Patient Disposition: Home, Self-Care Time of Disposition Decision: 15:02 Prescriptions / Home Meds: New nabumetone 750 mg tablet 750 mg PO BID PRN (Reason: pain) Qty: 14 0RF methylprednisolone [Medrol (Jono)] 4 mg tablets,dose pack 4 mg PO DAILY Qty: 21 0RF No Action Complete 14 mg iron- 400 mcg tablet 1 tab PO DAILY acetaminophen [Pain Relief (acetaminophen)] 325 mg tablet 650 mg PO Q6H PRN (Reason: pain) Print Language: Wolof Instructions: Mike (ED) Referrals: Omid Tillman MD [Primary Care Provider] - 1 week
== END 2024-10-29 15:19 | disposition home or self-care (01) ==
PROVIDERS: Emergency Provider Emergency Medicine; PCP Family Medicine
DX: B02.9 Zoster without complications (principal)
CPT/HCPCS: 99283

== ENCOUNTER 2025-05-15 12:29 | Outpatient (REF) | payer MEDICAID, SELFPAY ==
--- OUTSIDE RECORDS SUMMARY | 2025-05-15 08:30 | XMS_ITS | Encounter Summary ---
Author Organization [facility] Address [address] [place] [address] Care Team Providers Care Marketing Ambassador Name Role Phone Unavailable Primary Care Provider Unavailabl e Reason for Visit * Reason Comments Well Women Visit Encounter Details Date Type Department Care Team (Late st Contact Info) Description 05/15/2025 8:30 AM EDT Office Visit [facility] [address] [facility] [address] [place] [place] [id number] Ja Aguayo, DO [address] [facility] [place] [address] Well woman exam with routine gynecological exam Social History Tobacco Use Types Packs/Day Years Used Date Smoking Tobacco: Never Smokeless Tobacco: Never Alcohol Use Standard Drinks/Week Comments Never 0 (1 standard drink = 0.6 oz pur e alcohol) Comments No Sex and Gender Information Value Date Recorded Sex Assigned at Not on file Legal Sex Female 11:52 PM EDT Gender Identity Not on file Sexual Orientation Not on file documented as of this encounter Last Filed Vital Signs Vital Sign Reading Time Taken Comments Blood Pressure 102/66 05/15/2025 8:37 AM EDT Pulse - - Temperature - - Respiratory Rate - - Oxygen Saturation - - Inhaled Oxygen Concentration - - Weight 66.8 kg (147 lb 4 oz) 05/15/2025 8:37 AM EDT Height - - Body Mass Index 22.39 05/11/2024 8:45 AM EDT documented in this encounter Plan of Treatment Scheduled Orders Name Type Priority Associated Diagnoses Orde r Schedule Pap Smear Pathology and Cytology Routine Well woman exam with routine gynecological exam Ordered: 05/15/2025 HPV DNA probe, amplified Microbiology Routine Well woman exam with routine gynecological exam Ordered: 05/15/2025 documented as of this encounter Visit Diagnoses Diagnosis Well woman exam with routine gynecological exam Routine gynecological examination documented in this encounter
--- OUTSIDE RECORDS SUMMARY | 2025-05-15 12:33 | XMS_ITS | Patient Health Record ---
Author Organization [facility] Address [address] [place] [address] Care Team Providers Care Hot Box Checker Name Role Phone Jose Tillman Primary Care Provider Reason For Referral No Information Plan Of Treatment No Information Insurance Providers Payer Name Payer Address Payer Phone Subscriber Number Group Number Insured Name Patient Relationship to Insured Coverage Start Date Coverage End Date SELF PAY ON PATIENT DEMOGRAPHICS null, null Other
--- OUTSIDE RECORDS SUMMARY | 2025-05-15 12:33 | XMS_ITS | Encounter Summary ---
Author Organization [facility] Address [address] [place] [address] Care Team Providers Care Cardiac Exercise Specialist Name Role Phone Unavailable Primary Care Provider Unavailabl e Encounter Details Date Type Department Care Team (Late st Contact Info) Description 05/15/2025 Bamboo flowsheet [facility] OB [address] [place] [address] Ja Aguayo, DO [address] [facility] [address] [place], [facility]11 Social History Tobacco Use Types Packs/Day Years [...] on file documented as of this encounter Plan of Treatment Not on file documented as of this encounter Visit Diagnoses Not on filedocumented in this encounter
--- OUTSIDE RECORDS SUMMARY | 2025-05-15 12:33 | XMS_ITS | Encounter Summary ---
Author Organization [facility] Address [address] [place] [address] Care Team Providers Care Registrar Nurses' Registry Name Role Phone Unavailable Primary Care Provider Unavailabl e Encounter Details Date Type Department Care Team (Late st Contact Info) Description 05/28/2023 Abstract [facility] [address] [facility] [place] [place] [phone] Clair Nascimento PA [address] [facility] [address] [place], [facility]11 Social History Tobacco Use Types Packs/Day Years Used Date Smoking Tobacco: Never Smokeless Tobacco: Never Alcohol Use Standard Drinks/Week Comments Never 0 (1 standard drink = 0.6 oz pur e alcohol) Comments Yes Sex and Gender Information Value Date Recorded Sex Assigned at Not on file Legal Sex Female 11:52 PM EDT Gender Identity Not on file Sexual Orientation Not on file documented as of this encounter Plan of Treatment Not on file documented as of this encounter Visit Diagnoses Not on filedocumented in this encounter
--- OUTSIDE RECORDS SUMMARY | 2025-05-15 12:33 | XMS_ITS | Encounter Summary ---
Author Organization [facility] Address [address] [place] [address] Care Team Providers Care Corporate Specialist Name Role Phone Unavailable Primary Care Provider Unavailabl e Encounter Details Date Type Department Care Team (Late st Contact Info) Description 10/19/2023 Clinisync Result Encounter [facility] External Department Unsolicited Ja Aguayo, DO [address] [facility] [place] [address] Social History Tobacco Use Types Packs/Day Years [...] on file documented as of this encounter Procedures Procedure Name Priority Date/Time Associated Diagnosis Comments US OB BPP W NON-STRESS 10/19/2023 11:25 AM EST documented in this encounter Results * US OB BPP W NON-STRESS (10/19/2023 11:25 AM EST) Anatomical Region Laterality Modality Other 10/19/2023 11:2 5 AM EST Narrative 10/19/2023 11:27 AM EST The [address] [address] Ultrasound Report Signed Patient: ERIKA GRIER MR#: [id number] : 1990 Acct:[id number] Age/Sex: 33 / F ADM Date: 10/19/23 Loc: [facility] 250-[address]: Ja Aguayo D.O. Ordering Physician: Ja Aguayo D.O. Date of Service: 10/19/23 Procedure(s): US OB BPP w non-stress Accession Number(s): [id number] cc: Ja Aguayo D.O.; Physician,Non-Staff Jeromy The [place] [address] Patient Name: ERIKA GRIER MRN: [id number] date: 1990 Sex: F Assigned Patient Location: US Current Patient Location: Accession/Order Number: [id number] Exam Date: 10/19/2023 10:48 Report Date: 10/19/2023 11:25 At the request of: JA AGUAYO Procedure: US OB BPP w non-stress EXAMINATION: US OB BPP w non-stress HISTORY: Third trimester COMPARISON: Ultrasound OB biophysical 10/11/2023 TECHNIQUE: Ultrasound biophysical profile was performed in the radiology department. BREATHING MOVEMENTS: 2.0 GROSS BODY MOVEMENTS: 2.0 TONE: 2.0 QUALITATIVE AMNIOTIC FLUID VOLUME: 2.0 PRESENTATION: CEPHALIC HEART RATE: 147.5 bpm bpm. AMNIOTIC FLUID VOLUME: 18.3 cm GESTATIONAL AGE: 38 weeks 3 days CONCLUSION: 1. Total biophysical profile score 8.0. 2. Large amount of echogenic floating debris throughout the amniotic fluid. Electronically authenticated by: ELDON ALVARENGA Date: 10/19/2023 11:25 Dictated By: Eldon Alvarenga M.D. Signed By: 10/19/23 1127 DD/ 1125 TD/TT: Cable Television Line Technician: Procedure Note Radiology, Radiologist, - 12/29/2023 [place] [address] Ultrasound Report Signed Patient: ERIKA GRIER RMR#: [id number] : 1990Acct:[id number] Age/Sex: 33 / FADM Date: 10/19/23 Loc: [facility] 250-[address]: Ja Aguayo D.O. Ordering Physician: Ja Aguayo D.O. Date of Service: 10/19/23 Procedure(s): US OB BPP w non-stress Accession Number(s): [id number] cc: Ja Aguayo D.O.; Physician,Non-Staff M.Guera [place] [address] Patient Name: ERIKA GRIER MRN: [facility]:[id number] date: 1990 Sex: F Assigned Patient Location: US Current Patient Location: US Accession/Order Number: [id number] Exam Date: 10/19/2023 10:48 Report Date: 10/19/2023 11:25 At the request of: JA AGUAYO Procedure: US OB BPP w non-stress EXAMINATION: US OB BPP w non-stress HISTORY: Third trimester COMPARISON: Ultrasound OB biophysical 10/11/2023 TECHNIQUE: Ultrasound biophysical profile was performed in the radiology department. BREATHING MOVEMENTS: 2.0 GROSS BODY MOVEMENTS: 2.0 TONE: 2.0 QUALITATIVE AMNIOTIC FLUID VOLUME: 2.0 PRESENTATION: CEPHALIC HEART RATE: 147.5 bpm bpm. AMNIOTIC FLUID VOLUME: 18.3 cm GESTATIONAL AGE: 38 weeks 3 days CONCLUSION: 1. Total biophysical profile score 8.0. 2. Large amount of echogenic floating debris throughout the amnioticfluid. Electronically authenticated by: ELDON ALVARENGA Date: 10/19/2023 11:25 Dictated By: Eldon Alvarenga M.D. Signed By:10/19/23 1127 DD/ 1125 TD/TT: Cable Television Line Technician: us Ja Aguayo DO [facility] Final Result documented in this encounter Visit Diagnoses Not on filedocumented in this encounter
--- OUTSIDE RECORDS SUMMARY | 2025-05-15 12:33 | XMS_ITS | Clinical Summary ---
Author Organization [facility] Address [address] [place] [address] Care Team Providers Care Design Technology Professor Name Role Phone Unavailable Primary Care Provider Unavailabl e Social History Tobacco Use Types Packs/Day Years Used Date Smoking Tobacco: Never Assessed DE Safety & Environment Answer Date Rec orded Fear of Current or Ex-Partner Not on file Emotionally Abused Not on file 12/16/2023 Physically Abused Not on file 12/16/2023 Sexually Abused Not on file 12/16/2023 Physically or Sexually Abused Not on file Comments Unknown Sex and Gender Information Value Date Recorded Sex Assigned at Not on file Legal Sex Female 12:43 AM EDT Gender Identity Not on file Sexual Orientation Not on file Plan of Treatment Not on file
--- OUTSIDE RECORDS SUMMARY | 2025-05-15 12:33 | XMS_ITS | Encounter Summary ---
Author Organization [facility] Address [address] [place] [address] Care Team Providers Care Sales Person Name Role Phone Unavailable Primary Care Provider Unavailabl e Encounter Details Date Type Department Care Team (Late st Contact Info) Description 10/20/2023 Abstract [facility] OB [address] [place] [place] [address] Marivel Esquivel LPN Social History Tobacco Use Types Packs/Day Years [...]
--- OUTSIDE RECORDS SUMMARY | 2025-05-15 12:33 | XMS_ITS | Encounter Summary ---
Author Organization [facility] Address [address] [place] [address] Care Team Providers Care Laundry Machine Mechanic Name Role Phone Unavailable Primary Care Provider Unavailabl e Encounter Details Date Type Department Care Team (Late st Contact Info) Description 09/20/2023 Clinisync Result Encounter [facility] External Department Unsolicited Ja Aguayo, DO [address] [facility] [place] [address] Social History Tobacco Use Types [...] Diagnosis Comments US OB BPP W NON-STRESS 09/20/2023 3:38 PM EST documented in this encounter Results * US OB BPP W NON-STRESS (09/20/2023 3:38 PM EST) Anatomical Region Laterality Modality Other 09/20/2023 3:38 PM EST Narrative 09/20/2023 3:38 PM EST The [address] [address] Ultrasound Report Signed Patient: ERIKA GRIER MR#: [id number] : 1990 Acct:[id number] Age/Sex: 33 / F ADM Date: 09/20/23 Loc: US Attending Dr: Ja Aguayo D.O. Ordering Physician: Ja Aguayo D.O. Date of Service: 09/20/23 Procedure(s): US OB BPP w non-stress Accession Number(s): [id number] cc: Ja Aguayo D.O.; Physician,Non-Staff M.Guera The [place] [id number] Patient Name: ERIKA GRIER MRN: [id number] date: 1990 Sex: F Assigned Patient Location: [facility] Current Patient Location: Accession/Order Number: [id number] Exam Date: 09/20/2023 11:06 Report Date: 09/20/2023 15:38 At the request of: JA AGUAYO Procedure: US OB BPP w non-stress EXAMINATION: US OB BPP w non-stress HISTORY: THIRD TRIMESTER Z34.93 COMPARISON: Ultrasound OB anatomy 06/17/2023 TECHNIQUE: Ultrasound biophysical profile was performed in the radiology department. BREATHING MOVEMENTS: 2.0 GROSS BODY MOVEMENTS: 2.0 TONE: 2.0 QUALITATIVE AMNIOTIC FLUID VOLUME: 2.0 PRESENTATION: CEPHALIC HEART RATE: 151.7 bpm bpm. AMNIOTIC FLUID VOLUME: 16.3 cm GESTATIONAL AGE: 34 weeks 2 days CONCLUSION: Total biophysical profile score 8.0. Electronically authenticated by: ELDON ALVARENGA Date: 09/20/2023 15:38 Dictated By: Eldon Alvarenga M.D. Signed By: 09/20/23 1540 DD/ 1538 TD/TT: Metal Slitter: Procedure Note Radiology, Radiologist, - 09/22/2023 [place] [address] Ultrasound Report Signed Patient: ERIKA GRIER RMR#: [id number] : 1990Acct:[id number] Age/Sex: 33 / FADM Date: 09/20/23 Loc: US Attending Dr: Ja Aguayo D.O. Ordering Physician: Ja Aguayo D.O. Date of Service: 09/20/23 Procedure(s): US OB BPP w non-stress Accession Number(s): [id number] cc: Ja Aguayo D.O.; Physician,Non-Staff Jeromy [place] [address] Patient Name: ERIKA GRIER MRN: [facility]:[id number] date: 1990 Sex: F Assigned Patient Location: [facility] Current Patient Location: Accession/Order Number: [id number] Exam Date: 09/20/2023 11:06 Report Date: 09/20/2023 15:38 At the request of: JA AGUAYO Procedure: US OB BPP w non-stress EXAMINATION: US OB BPP w non-stress HISTORY: THIRD TRIMESTER Z34.93 COMPARISON: Ultrasound OB anatomy 06/17/2023 TECHNIQUE: Ultrasound biophysical profile was performed in the radiology department. BREATHING MOVEMENTS: 2.0 GROSS BODY MOVEMENTS: 2.0 TONE: 2.0 QUALITATIVE AMNIOTIC FLUID VOLUME: 2.0 PRESENTATION: CEPHALIC HEART RATE: 151.7 bpm bpm. AMNIOTIC FLUID VOLUME: 16.3 cm GESTATIONAL AGE: 34 weeks 2 days CONCLUSION: Total biophysical profile score 8.0. Electronically authenticated by: ELDON ALVARENGA Date: 09/20/2023 15:38 Dictated By: Eldon Alvarenga M.D. Signed By:09/20/23 1540 DD/ 1538 TD/TT: Metal Slitter: us Ja Aguayo DO [facility] Final Result documented in this encounter Visit Diagnoses Not on filedocumented in this encounter
--- OUTSIDE RECORDS SUMMARY | 2025-05-15 12:33 | XMS_ITS | Encounter Summary ---
Author Organization [facility] Address [address] [place] [address] Care Team Providers Care Equity Manager Name Role Phone Unavailable Primary Care Provider Unavailabl e Encounter Details Date Type Department Care Team (Late st Contact Info) Description 07/18/2023 Clinisync Result Encounter [facility] External Department Unsolicited Ja Aguayo, DO [address] [facility] [place] [address] Social History Tobacco Use Types [...] on file Sexual Orientation Not on file COVID-19 Exposure Response Date Recorded In the last 10 days, have yo u been in contact with someone who was confirmed or suspected to have Coronavirus/COVID-19? No / Unsure 06/24/2023 10:45 PM EDT documented as of this encounter Plan of Treatment Not on file documented as of this encounter Procedures Procedure Name Priority Date/Time Associated Diagnosis Comments US OB TRANSVAGINAL 07/18/2023 2: 06 AM EDT documented in this encounter Results * US OB TRANSVAGINAL (07/18/2023 2:06 AM EDT) Anatomical Region Laterality Modality Other 07/18/2023 2:06 AM EDT Narrative 07/18/2023 2:[place] [address] Ultrasound Report Signed Patient: ERIKA GRIER MR#: [id number] : 1990 Acct:[id number] Age/Sex: 33 / F ADM Date: 07/17/23 Loc: LAB Attending Dr: Ja Aguayo D.O. Ordering Physician: Ja Aguayo D.O. Date of Service: 07/17/23 Procedure(s): US OB transvaginal Accession Number(s): [id number] cc: Ja Aguayo D.O.; Physician,Non-Staff Jeromy The [address] [address] Patient Name: ERIKA GRIER MRN: [id number]:[id number] date: 1990 Sex: F Assigned Patient Location: LAB Current Patient Location: Accession/Order Number: [id number] Exam Date: 07/17/2023 08:09 Report Date: 07/18/2023 02:06 At the request of: JA AGUAYO Procedure: US OB transvaginal EXAMINATION: US OB transvaginal, US OB placenta HISTORY: Low lying placenta, placenta previa COMPARISON: No relevant comparison available. FINDINGS: PLACENTA: Posterior with lower margin 3.4 cm from os. Suspect small machado at inferior aspect of placenta. CERVIX LENGTH: 4.1 cm, closed. HEART RATE: 146 OTHER: None. GA: 25 weeks 0 days OMARI: 10/30/2023 US/US OB transvaginal IMPRESSION: 1. Single live intrauterine . 2. Posterior placenta which is no longer low-lying. Electronically authenticated by: ELDON ALVARENGA Date: 07/18/2023 02:06 Dictated By: Eldon Alvarenga M.D. Signed By: 07/18/23208 DD/ 5 TD/TT: Poly Operator: Procedure Note Radiology, Radiologist, MD - 07/18/2023 The [place] [id number] Ultrasound Report Signed Patient: ERIKA GRIERMR#: [id number] : 1990Acct:[id number] Age/Sex: 33 / FADM Date: 07/17/23 Loc: LAB Attending Dr: Ja Aguayo D.O. Ordering Physician: Ja Aguayo D.O. Date of Service: 07/17/23 Procedure(s): US OB transvaginal Accession Number(s): [id number] cc: Ja Aguayo D.O.; Physician,Non-Staff Jeromy The [place] [address] Patient Name: ERIKA GRIER MRN: [facility]:[id number] date: 1990 Sex: F Assigned Patient Location: LAB Current Patient Location: Accession/Order Number: [id number] Exam Date: 07/17/2023 08:09 Report Date: 07/18/2023 02:06 At the request of: JA AGUAYO Procedure: US OB transvaginal EXAMINATION: US OB transvaginal, US OB placenta HISTORY: Low lying placenta, placenta previa COMPARISON: No relevant comparison available. FINDINGS: PLACENTA: Posterior with lower margin 3.4 cm from os. Suspect small lakeat inferior aspect of placenta. CERVIX LENGTH: 4.1 cm, closed. HEART RATE: 146 OTHER: None. GA: 25 weeks 0 days OMARI: 10/30/2023 US/US OB transvaginal IMPRESSION: 1. Single live intrauterine . 2. Posterior placenta which is no longer low-lying. Electronically authenticated by: ELDON ALVARENGA Date: 07/18/2023 02:06 Dictated By: Eldon Alvarenga M.D. Signed By:07/18/23208 DD/ 5 TD/TT: Poly Operator: us Ja Aguayo DO [facility] Final Result documented in this encounter Visit Diagnoses Not on filedocumented in this encounter
--- OUTSIDE RECORDS SUMMARY | 2025-05-15 12:33 | XMS_ITS | Encounter Summary ---
Author Organization [facility] Address [address] [place] [address] Care Team Providers Care Security Site Supervisor Name Role Phone Unavailable Primary Care Provider Unavailabl e Encounter Details Date Type Department Care Team (Late st Contact Info) Description 07/18/2023 Clinisync Result Encounter [facility] External Department Unsolicited Ja Aguayo, DO [address] [facility] [place] [address] Social History Tobacco Use Types [...] Priority Date/Time Associated Diagnosis Comments US OB PLACENTA 07/18/2023 2:06 AM EDT documented in this encounter Results * US OB PLACENTA (07/18/2023 2:06 AM EDT) Anatomical Region Laterality Modality Other 07/18/2023 2:06 AM EDT Narrative 07/18/2023 2:[place] [address] Ultrasound Report Signed Patient: ERIKA GRIER MR#: [id number] : 1990 Acct:[id number] Age/Sex: 33 / F ADM Date: 07/17/23 Loc: LAB Attending Dr: Ja Aguayo D.O. Ordering Physician: Ja Aguayo D.O. Date of Service: 07/17/23 Procedure(s): US OB placenta Accession Number(s): [id number] cc: Ja Aguayo D.O.; Physician,Non-Staff Jeromy The [place] [id number] Patient Name: ERIKA GRIER MRN: [id number] date: 1990 Sex: F Assigned Patient Location: LAB Current Patient Location: Accession/Order Number: [id number] Exam Date: 07/17/2023 08:09 Report Date: 07/18/2023 02:06 At the request of: JA AGUAYO Procedure: US OB placenta EXAMINATION: US OB transvaginal, US OB placenta HISTORY: Low lying placenta, placenta previa COMPARISON: No relevant comparison available. FINDINGS: PLACENTA: Posterior with lower margin 3.4 cm from os. Suspect small machado at inferior aspect of placenta. CERVIX LENGTH: 4.1 cm, closed. HEART RATE: 146 OTHER: None. GA: 25 weeks 0 days OMARI: 10/30/2023 US/US OB placenta IMPRESSION: 1. Single live intrauterine . 2. Posterior placenta which is no longer low-lying. Electronically authenticated by: ELDON ALVARENGA Date: 07/18/2023 02:06 Dictated By: lEdon Alvarenga M.D. Signed By: 07/18/23208 DD/ 5 TD/TT: Senior Hr Generalist: Procedure Note Radiology, Radiologist, MD - 07/18/2023 The [place] [id number] Ultrasound Report Signed Patient: ERIKA GRIERMR#: [id number] : 1990Acct:[id number] Age/Sex: 33 / FADM Date: 07/17/23 Loc: LAB Attending Dr: Ja Aguayo D.O. Ordering Physician: Ja Aguayo D.O. Date of Service: 07/17/23 Procedure(s): US OB placenta Accession Number(s): [id number] cc: Ja Aguayo D.O.; Physician,Non-Staff M.DPriya [place] [address] Patient Name: ERIKA GRIER MRN: [id number] date: 1990 Sex: F Assigned Patient Location: LAB Current Patient Location: Accession/Order Number: [id number] Exam Date: 07/17/2023 08:09 Report Date: 07/18/2023 02:06 At the request of: JA AGUAYO Procedure: US OB placenta EXAMINATION: US OB transvaginal, US OB placenta HISTORY: Low lying placenta, placenta previa COMPARISON: No relevant comparison available. FINDINGS: PLACENTA: Posterior with lower margin 3.4 cm from os. Suspect small lakeat inferior aspect of placenta. CERVIX LENGTH: 4.1 cm, closed. HEART RATE: 146 OTHER: None. GA: 25 weeks 0 days OMARI: 10/30/2023 US/US OB placenta IMPRESSION: 1. Single live intrauterine . 2. Posterior placenta which is no longer low-lying. Electronically authenticated by: ELDON ALVARENGA Date: 07/18/2023 02:06 Dictated By: Eldon Alvarenga M.D. Signed By:07/18/23208 DD/ 5 TD/TT: Senior Hr Generalist: us Ja Aguayo DO [facility] Final Result documented in this encounter Visit Diagnoses Not on filedocumented in this encounter
--- OUTSIDE RECORDS SUMMARY | 2025-05-15 12:33 | XMS_ITS | Encounter Summary ---
Author Organization [facility] Address [address] [place] [address] Care Team Providers Care Spine Supervisor Name Role Phone Unavailable Primary Care Provider Unavailabl e Encounter Details Date Type Department Care Team (Late st Contact Info) Description 05/10/2023 Abstract [facility] OB [address] [address] [place] [id number] Ja Aguayo, DO [address] [facility] [place] [address] Social History Tobacco Use Types Packs/Day Years [...]
--- OUTSIDE RECORDS SUMMARY | 2025-05-15 12:33 | XMS_ITS | Encounter Summary ---
Author Organization [facility] Address [address] [place] [address] Care Team Providers Care Trashman Name Role Phone Unavailable Primary Care Provider Unavailabl e Encounter Details Date Type Department Care Team (Late st Contact Info) Description 10/04/2023 Clinisync Result Encounter [facility] External Department Unsolicited Ja Aguayo, DO [address] [facility] [place] [address] Social History Tobacco Use Types [...] Diagnosis Comments US OB BPP W NON-STRESS 10/04/2023 1:07 PM EST documented in this encounter Results * US OB BPP W NON-STRESS (10/04/2023 1:07 PM EST) Anatomical Region Laterality Modality Other 10/04/2023 1:07 PM EST Narrative 10/04/2023 1:10 PM EST The [address] [address] Ultrasound Report Signed Patient: ERIKA GRIER MR#: [id number] : 1990 Acct:[id number] Age/Sex: 33 / F ADM Date: 10/04/23 Loc: US Attending Dr: Ja Aguayo D.O. Ordering Physician: Ja Aguayo D.O. Date of Service: 10/04/23 Procedure(s): US OB BPP w non-stress Accession Number(s): [id number] cc: Ja Aguayo D.O.; Physician,Non-Staff [place] [facility] [place] [address] Patient Name: ERIKA GRIER MRN: [id number] date: 1990 Sex: F Assigned Patient Location: Current Patient Location: Accession/Order Number: [id number] Exam Date: 10/04/2023 11:26 Report Date: 10/04/2023 13:07 At the request of: JA AGUAYO Procedure: US OB BPP w non-stress EXAMINATION: US OB BPP w non-stress HISTORY: THIRD TRIMESTER COMPARISON: No relevant comparison available. TECHNIQUE: Ultrasound biophysical profile was performed in the radiology department. non-reactive stress testing was performed by nursing staff in the birthing center. FINDINGS: BREATHING MOVEMENTS: 2.0 GROSS BODY MOVEMENTS: 2.0 TONE: 2.0 QUALITATIVE AMNIOTIC FLUID VOLUME: 2.0 PRESENTATION: CEPHALIC HEART RATE: 137.8 bpm H.B./min AMNIOTIC FLUID VOLUME: 15.2 cm cm GESTATIONAL AGE: 36 weeks 2 days CONCLUSION: Total biophysical profile score: 8.0 Electronically authenticated by: ANJELICA UMANZOR Date: 10/04/2023 13:07 Dictated By: Anjelica Umanzor M.D. Signed By: 10/04/23 1310 DD/ 1307 TD/TT: Medical Data Analyst: Procedure Note Radiology, Radiologist, - 12/29/2023 [place] [address] Ultrasound Report Signed Patient: ERIKA GRIER RMR#: [id number] : 1990Acct:[id number] Age/Sex: 33 / FADM Date: 10/04/23 Loc: US Attending Dr: Ja Aguayo D.O. Ordering Physician: Ja Aguayo D.O. Date of Service: 10/04/23 Procedure(s): US OB BPP w non-stress Accession Number(s): [id number] cc: Ja Aguayo D.O.; Physician,Non-Staff M.[facility]ya [place] [address] Patient Name: ERIKA GRIER MRN: [id number] date: 1990 Sex: F Assigned Patient Location: US Current Patient Location: US Accession/Order Number: [id number] Exam Date: 10/04/2023 11:26 Report Date: 10/04/2023 13:07 At the request of: JA AGUAYO Procedure: US OB BPP w non-stress EXAMINATION: US OB BPP w non-stress HISTORY: THIRD TRIMESTER COMPARISON: No relevant comparison available. TECHNIQUE: Ultrasound biophysical profile was performed in the radiology department. non-reactive stress testing was performed by nursingstaff in the birthing center. FINDINGS: BREATHING MOVEMENTS: 2.0 GROSS BODY MOVEMENTS: 2.0 TONE: 2.0 QUALITATIVE AMNIOTIC FLUID VOLUME: 2.0 PRESENTATION: CEPHALIC HEART RATE: 137.8 bpm H.B./min AMNIOTIC FLUID VOLUME: 15.2 cm cm GESTATIONAL AGE: 36 weeks 2 days CONCLUSION: Total biophysical profile score: 8.0 Electronically authenticated by: ANJELICA UMANZOR Date: 10/04/2023 13:07 Dictated By: Anjelica Umanzor M.D. Signed By:10/04/23 1310 DD/ 130 TD/TT: Medical Data Analyst: us Ja Aguayo DO [facility] Final Result documented in this encounter Visit Diagnoses Not on filedocumented in this encounter
--- OUTSIDE RECORDS SUMMARY | 2025-05-15 12:33 | XMS_ITS | Clinical Summary ---
Author Organization [facility] Address [address] [place] [id number] Care Team Providers Care Multiple Drill Operator Name Role Phone Unavailable Primary Care Provider Unavailabl e Allergies No known active allergies Medications No known medications Encounters Date Type Department Care Team Description 05/15/2025 8:30 AM EDT Office Visit [facility] [address] [place] [address] Ja Aguayo DO Well woman exam with routine gynecological exam 05/15/2025 Bamboo flowsheet [facility] [address] [place] [id number] Ja Aguayo DO from Last 3 Months Family History Medical History Relation Name Comments No Known Problems Brother No Known Problems Daughter 1 No Known Problems Daughter 3 No Known Problems Father No Known Problems Mother No Known Problems Son Relation Name Status Comments Brother Alive Daughter 1 Alive Daughter 2 Alive Daughter 3 Alive Father Alive Mother Alive Son Alive Social History Tobacco Use Types Packs/Day Years Used Date Smoking Tobacco: Never Smokeless Tobacco: Never Alcohol Use Standard Drinks/Week Comments Never 0 (1 standard drink = 0.6 oz pur e alcohol) Comments No Sex and Gender Information Value Date Recorded Sex Assigned at Not on file Legal Sex Female 11:52 PM EDT Gender Identity Not on file Sexual Orientation Not on file Last Filed Vital Signs Vital Sign Reading Time Taken Comments Blood Pressure 102/66 05/15/2025 8:37 AM EDT Pulse - - Temperature - - Respiratory Rate - - Oxygen Saturation - - Inhaled Oxygen Concentration - - Weight 66.8 kg (147 lb 4 oz) 05/15/2025 8:37 AM EDT Height 172.7 cm (5' 8 ) 05/11/2024 8:45 AM EDT Body Mass Index 22.39 05/11/2024 8:45 AM EDT Plan of Treatment Not on file Insurance [employer] [place]
[2025-05-17 00:07] LABS: Age Gdln ACOG Testing Note (.); IGP, Aptima HPV, rfx 16/18,45 Note (.)
== END 2025-05-15 12:30 | disposition home or self-care (01) ==
LOC: LAB 12:29
PROVIDERS: PCP Family Medicine; Visit Provider Obstetrics & Gynecology
DX: Z01.419 Encounter for gynecological examination (general) (routine) without abnormal findings (principal)
CPT/HCPCS: 87624; 88175